=== PATIENT | female | born 1940 | race Caucasian/White ===

== ENCOUNTER 2023-03-24 10:09 | Observation (INO) | payer MEDICARE, SELFPAY ==
[2023-03-24] VITALS (36 sets, daily range): BP systolic 155–169; BP diastolic 78–95; PULSE 66–98; RESP 12–27; TEMP 36.8–37.3; O2SAT 88–100; BMI 32.9; BMI 36.1
--- NOTE | 2023-03-24 10:31 | XR_ITS ---
The [address] [address] Patient Name: CHIARA GALLEGOS MRN: [id number] date: 1940 Sex: F Assigned Patient Location: ER Current Patient Location: ER Accession/Order Number: [id number] Exam Date: 03/24/2023 10:40 Report Date: 03/24/2023 12:34 At the request of: BAHMAN ORR Procedure: XR chest 1V EXAM: XR chest 1V 03/24/2023 COMPARISON STUDY: PA and lateral chest 04/10/2018 FINDINGS: Upright lordotic AP chest type image was obtained. The image overall is underpenetrated particularly in the retrocardiac region. HISTORY: sob XR/XR chest 1V IMPRESSION: 1. The cardiomediastinal contours are stable. Heart size is top normal. Descending thoracic aorta appears ectatic and tortuous. 2. The retrocardiac regions cannot be accurately evaluated due to underpenetration. No dense consolidation, effusion, edema, failure or pneumothorax otherwise suspected. 3. Lower thoracic levoscoliosis. No acute osseous abnormality. Significant arthritic changes involving the glenohumeral articulations bilaterally again noted. Electronically authenticated by: MIRIAM RAMIREZ Date: 03/24/2023 12:34
--- NOTE | 2023-03-24 10:31 | ECG_ITS ---
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
[2023-03-24 10:58] LABS: Basophils Percent Auto 0.2 % (0.2-2.0); Eosinophils Absolute Auto 0.3 10^3/uL (0.0-0.7); Eosinophils Percent Auto 2.5 % (0.9-7.0); Hematocrit 37.5 % (36.0-48.0); Hemoglobin 12.1 g/dL (12.0-16.0); Immature Granulocytes Abs Auto 0.03 10^3/uL (0.00-0.03); Immature Granulocytes Pct Auto 0.3 % (0.0-0.5); Lymphocytes Absolute Auto 2.5 10^3/uL (1.2-3.8); Lymphocytes Percent Auto 24.5 % (20.5-60.0); Mean Corpuscular HGB Conc 32.3 g/dL (29.9-35.2); Mean Corpuscular Hemoglobin 29.4 pg (26.7-34.0); Monocytes Absolute Auto 0.9 10^3/uL (0.3-0.8); Monocytes Percent Auto 8.8 % (1.7-12.0); Neutrophils Absolute Auto 6.6 10^3/uL (1.4-6.5); Neutrophils Percent Auto 63.7 % (43.0-75.0); Platelet Count 321 10^3/uL (150-450); Red Blood Count 4.12 10^6/uL (4.20-5.40); Red Cell Distribution Width 13.7 % (11.0-15.0); White Blood Count 10.4 10^3/uL (4.0-11.0)
[2023-03-24 11:09] LABS: INR 0.98; Prothrombin Time 10.4 sec (9.0-11.6)
[2023-03-24 11:11] LABS: SARS-CoV-2 Ag NEGATIVE (NEGATIVE)
[2023-03-24 11:13] LABS: Alanine Aminotransferase 13 U/L (14-59); Albumin Globulin Ratio 0.9; Albumin Level 3.2 g/dL (3.4-5.0); Alkaline Phosphatase 120 U/L (46-116); Anion Gap 10.5; Aspartate Amino Transferase 12 U/L (15-37); BUN Creatinine Ratio 14.7; Calcium 8.8 mg/dL (8.5-10.1); Carbon Dioxide 28.5 mmol/L (21.0-32.0); Chloride 103 mmol/L (98-107); Estimated GFR (African America >60 (>=60); Estimated GFR (Non-African Ame >60 (>=60); Globulin 3.7 g/dL; Glucose 113 mg/dL (74-106); Lactate/Lactic Acid 1.1 mmol/L (0.4-2.0); Sodium 138 mmol/L (136-145); Total Protein 6.9 g/dL (6.4-8.2); Troponin I High Sensitivity 9.5 pg/mL (4.0-51.3)
--- NOTE | 2023-03-24 11:39 | CT_ITS ---
The [address] [address] Patient Name: CHIARA GALLEGOS MRN: [id number] date: 1940 Sex: F Assigned Patient Location: ER Current Patient Location: ER Accession/Order Number: [id number] Exam Date: 03/24/2023 11:50 Report Date: 03/24/2023 13:06 At the request of: BAHMAN ORR Procedure: CT chest w con EXAM: CT chest w con HISTORY: sob COMPARISON: None. TECHNIQUE: Dose reduction techniques were achieved by using automated exposure control and/or adjustment of mA and/or kV according to patient size and/or use of iterative reconstruction technique.CT of the chest with contrast. FINDINGS: Inferior visualized portion of the thyroid gland is normal. No supraclavicular adenopathy. No axillary adenopathy. No central pulmonary embolism. No acute aortic abnormality. Heart size is normal. No pericardial effusion. No acute abnormality of the visualized portions of the upper abdomen. Gastric surgery. Patchy consolidation at the left lung base, consistent with inflammation/infection. No acute osseous abnormality. Mild to moderate degeneration of the thoracic spine disc spaces. CT/CT chest w con IMPRESSION: 1. No pulmonary embolism evaluated to the segmental pulmonary arteries. 2. No acute aortic abnormality. 3. Patchy consolidation at the left lung base, consistent with inflammation/infection. 4. No acute abnormality of the visualized portions of the upper abdomen. Electronically authenticated by: ALMAS WISE Date: 03/24/2023 13:06
[2023-03-24] MEDS: IPRATROPIUM/ALBUTEROL SULFATE 3 ML AMPUL.NEB IH ×2 (12:13→21:44)
[2023-03-24 12:16] LABS: SARS-CoV-2 NAA NOT DETECTED (NOT DETECTE)
--- NOTE | 2023-03-24 13:31 | ED_ITS ---
HPI - General Adult General Chief complaint: Upper Respiratory Infection Stated complaint: FLU LIKE SYMPTOMS Time Seen by Provider: 03/24/23 10:30 Source: patient Mode of arrival: Wheelchair Limitations: no limitations History of Present Illness HPI narrative: The patient presented to us with shortness of breath that been going on at least for 10 days although she got worse over the last few days with a cough that is not productive, decreased p.o. intake and lethargic at home No nausea or vomiting but the patient have no appetite to eat and she has been weak and tired Related Data Home Medications Medication Instructions Recorded Confirmed aripiprazole 2 mg tablet 2 mg PO QDAY 03/24/23 03/24/23 atorvastatin 20 mg tablet 20 mg PO QDAY 03/24/23 03/24/23 cyanocobalamin (vitamin B-12) 1,000 mcg PO DAILY 03/24/23 03/24/23 1,000 mcg tablet (Vitamin B-12) gabapentin 300 mg capsule 300 mg PO Q12H 03/24/23 03/24/23 memantine 5 mg tablet 5 mg PO QDAY 03/24/23 03/24/23 oxybutynin chloride 5 mg tablet 5 mg PO Q12H 03/24/23 03/24/23 venlafaxine 150 mg 150 mg PO QDAY 03/24/23 03/24/23 capsule,extended release 24 hr venlafaxine 75 mg capsule,extended 75 mg PO QDAY 03/24/23 03/24/23 release 24 hr Allergies Allergy/AdvReac Type Severity Reaction Status Date / Time No Known Drug Allergies Allergy Verified 03/24/23 10:20 Review of Systems ROS Status of ROS 10 or more systems reviewed and unremarkable except as noted in history and below PFSH PFSH Social History Smoking status: Former smoker Exam Narrative Exam Narrative: Nurses notes and vital signs reviewed and patient is not hypoxic. General: Well-appearing and in no apparent distress. Skin: Warm, dry, no pallor noted. No rash. Head: Normocephalic, atraumatic. Neck: Supple, non-tender. Eye: Pupils are equal, round and EOMI. No scleral icterus. Ears, Nose, Mouth, and Throat: TM are clear, no nasal mucosal hypertrophy. Oral mucosa is moist, no posterior oropharynx erythema, uvula is mid-line Cardiovascular: Regular Rate and Rhythm without murmur, gallop or rub. Respiratory: No accessory muscle use or respiratory distress. Lungs decreased air entry in the bases with rhonchi bilaterally Chest Wall: no tenderness Back: No midline thoracic or lumbar vertebral tenderness. No CVA tenderness Musculoskeletal: normal ROM, no calf or popliteal tenderness, no lower extremity edema/swelling GI: Abdomen is soft, non-distended. Normal bowel sounds. No masses appreciated. No tenderness to palpation. No rebound, guarding, or rigidity noted. Neurological: A&O x4. No cranial nerve dysfunction observed. No truncal ataxia. Moves all extremities. Sensation intact. Psychiatric: Cooperative and interactive. Normal mood and affect. Constitutional Vital Signs, click to edit/add: Last Vital Signs Temp 98.2 F 03/24/23 10:15 Pulse 75 03/24/23 12:30 Resp 23 03/24/23 12:45 BP 169/95 H 03/24/23 10:15 Pulse Ox 94 L 03/24/23 12:45 O2 Del Method Room Air 03/24/23 12:14 Course Vital Signs Vital signs: Vital Signs Temperature 98.2 F 03/24/23 10:15 Pulse Rate 87 03/24/23 10:15 Respiratory Rate 22 03/24/23 10:15 Blood Pressure 169/95 H 03/24/23 10:15 Pulse Oximetry 95 03/24/23 10:15 Oxygen Delivery Method Room Air 03/24/23 10:15 Temperature 98.2 F 03/24/23 10:15 Pulse Rate 75 03/24/23 12:30 Respiratory Rate 23 03/24/23 12:45 Blood Pressure 169/95 H 03/24/23 10:15 Pulse Oximetry 94 L 03/24/23 12:45 Oxygen Delivery Method Room Air 03/24/23 12:14 Medical Decision Making [facility] Narrative Medical decision making narrative: The patient EKG showing sinus rhythm with a heart rate of [address] elevation or depression The patient chest x-ray did not show any acute pathology that can explain why the patient is hypoxemic as well as short of breath and weak and tired Her CBC and chemistry showed no acute significant pathology but the patient does look sick and tired and her CAT scan confirmed the infiltrate and possible pneumonia Blood culture obtained and the patient will be started antibiotic azithromycin and ceftriaxone The patient case was discussed with Dr. Alcazar and he agreed on admission Lab Data Labs: Lab Results 03/24/23 03/24/23 Range/Units 10:30 10:39 WBC 10.4 (4.0-11.0) 10^3/uL RBC 4.12 L (4.20-5.40) 10^6/uL Hgb 12.1 (12.0-16.0) g/dL Hct 37.5 (36.0-48.0) % MCV 91.0 (81.0-99.0) fL MCH 29.4 (26.7-34.0) pg MCHC 32.3 (29.9-35.2) g/dL RDW 13.7 (11.0-15.0) % Plt Count 321 (150-450) 10^3/uL MPV 9.0 L (9.5-13.5) fL Neut % (Auto) 63.7 (43.0-75.0) % Lymph % (Auto) 24.5 (20.5-60.0) % [place] % (Auto) 8.8 (1.7-12.0) % Eos % (Auto) 2.5 (0.9-7.0) % Baso % (Auto) 0.2 (0.2-2.0) % Neut # (Auto) 6.6 H (1.4-6.5) 10^3/uL Lymph # (Auto) 2.5 (1.2-3.8) 10^3/uL [place] # (Auto) 0.9 H (0.3-0.8) 10^3/uL Eos # (Auto) 0.3 (0.0-0.7) 10^3/uL Baso # (Auto) 0.0 (0.0-0.1) 10^3/uL Abs Immat Gran (auto) 0.03 (0.00-0.03) 10^3/uL Imm/Tot Granulo (auto) 0.3 (0.0-0.5) % PT 10.4 (9.0-11.6) sec INR 0.98 Sodium 138 (136-145) mmol/L Potassium 4.0 (3.5-5.1) mmol/L Chloride 103 (98-107) mmol/L Carbon Dioxide 28.5 (21.0-32.0) mmol/L Anion Gap 10.5 BUN 10.0 (7.0-18.0) mg/dL Creatinine 0.68 (0.55-1.02) mg/dL Est GFR ( Amer) >60 (>=60) Est GFR (Non-Af Amer) >60 (>=60) BUN/Creatinine Ratio 14.7 Glucose 113 H (74-106) mg/dL Lactate 1.1 (0.4-2.0) mmol/L Calcium 8.8 (8.5-10.1) mg/dL Total Bilirubin 1.0 (0.2-1.0) mg/dL AST 12 L (15-37) U/L ALT 13 L (14-59) U/L Alkaline Phosphatase 120 H (46-116) U/L Troponin I High Sens 9.5 (4.0-51.3) pg/mL NT-Pro-B Natriuret Pep 369.0 (<=1800.0) pg/mL Total Protein 6.9 (6.4-8.2) g/dL Albumin 3.2 L (3.4-5.0) g/dL Globulin 3.7 g/dL Albumin/Globulin Ratio 0.9 SARS-CoV-2 (PCR) Negative (NEGATIVE) SARS-CoV-2 RNA (SHO) Not detected (NOT DETECTE) Discharge Plan Discharge Chief Complaint: Upper Respiratory Infection Clinical Impression: Community acquired pneumonia, Generalized muscle weakness Patient Disposition: Admitted As Inpatient Time of Disposition Decision: 13:35 Condition: Good
[2023-03-24] MEDS: CEFTRIAXONE 1,000 MG in 0.9 % SODIUM CHLORIDE 50 ML 100 MG IV (13:34)
[2023-03-24] MEDS: AZITHROMYCIN 500 MG in 0.9 % SODIUM CHLORIDE 250 ML 250 MG IV (14:06)
[2023-03-24] MEDS: LACTATED RINGER'S SOLUTION 1,000 ML 100 ML IV (16:27)
[2023-03-24] MEDS: ENOXAPARIN SODIUM 40 MG/0.4 ML SYRINGE SUBQ (16:35)
[2023-03-24] MEDS: OXYBUTYNIN chloride 5 MG TABLET PO (21:08)
[2023-03-24] MEDS: GABAPENTIN 300 MG CAPSULE PO (21:08)
[2023-03-24] MEDS: ACETAMINOPHEN 325 MG TABLET 650 MG PO (21:13)
[2023-03-25] VITALS (12 sets, daily range): BP systolic 124–146; BP diastolic 78–84; PULSE 62–82; RESP 16–18; TEMP 36.7–36.8; O2SAT 91–94
[2023-03-25] MEDS: LACTATED RINGER'S SOLUTION 1,000 ML 100 ML IV (02:15)
[2023-03-25 04:55] LABS: Basophils Percent Auto 0.3 % (0.2-2.0); Eosinophils Absolute Auto 0.2 10^3/uL (0.0-0.7); Eosinophils Percent Auto 2.3 % (0.9-7.0); Hematocrit 40.7 % (36.0-48.0); Hemoglobin 12.8 g/dL (12.0-16.0); Immature Granulocytes Abs Auto 0.03 10^3/uL (0.00-0.03); Immature Granulocytes Pct Auto 0.3 % (0.0-0.5); Lymphocytes Absolute Auto 2.9 10^3/uL (1.2-3.8); Mean Corpuscular HGB Conc 31.4 g/dL (29.9-35.2); Mean Corpuscular Hemoglobin 29.8 pg (26.7-34.0); Mean Corpuscular Volume 94.9 fL (81.0-99.0); Mean Platelet Volume 9.4 fL (9.5-13.5); Monocytes Percent Auto 9.5 % (1.7-12.0); Neutrophils Absolute Auto 5.9 10^3/uL (1.4-6.5); Neutrophils Percent Auto 58.6 % (43.0-75.0); Platelet Count 281 10^3/uL (150-450); Red Blood Count 4.29 10^6/uL (4.20-5.40); White Blood Count 10.1 10^3/uL (4.0-11.0)
[2023-03-25 05:18] LABS: Alanine Aminotransferase 13 U/L (14-59); Albumin Globulin Ratio 0.8; Alkaline Phosphatase 114 U/L (46-116); Aspartate Amino Transferase 16 U/L (15-37); BUN Creatinine Ratio 13.2; Bilirubin Total 1.2 mg/dL (0.2-1.0); Calcium 9.3 mg/dL (8.5-10.1); Carbon Dioxide 27.7 mmol/L (21.0-32.0); Chloride 102 mmol/L (98-107); Estimated GFR (African America >60 (>=60); Estimated GFR (Non-African Ame >60 (>=60); Glucose 101 mg/dL (74-106); Potassium 3.7 mmol/L (3.5-5.1); Sodium 139 mmol/L (136-145)
[2023-03-25] MEDS: GABAPENTIN 300 MG CAPSULE PO ×2 (05:31→13:56)
[2023-03-25] MEDS: IPRATROPIUM/ALBUTEROL SULFATE 3 ML AMPUL.NEB IH (08:57)
[2023-03-25] MEDS: AZITHROMYCIN 250 MG TABLET 500 MG PO (10:08)
[2023-03-25] MEDS: ATORVASTATIN CALCIUM 20 MG TABLET PO (10:08)
[2023-03-25] MEDS: ARIPIPRAZOLE 2 MG TABLET PO (10:08)
[2023-03-25] MEDS: FOLIC ACID/VIT B6/VIT B12 TABLET 1 TAB PO (10:09)
[2023-03-25] MEDS: ENOXAPARIN SODIUM 40 MG/0.4 ML SYRINGE SUBQ (10:09)
[2023-03-25] MEDS: MEMANTINE HCL 7 MG CAP XR PO (10:10)
[2023-03-25] MEDS: OXYBUTYNIN chloride 5 MG TABLET PO (10:10)
[2023-03-25] MEDS: VENLAFAXINE HCL ER 75 MG CAPSULE PO (10:10)
[2023-03-25] MEDS: VENLAFAXINE HCL ER 150 MG CAPSULE PO (10:10)
--- NOTE | 2023-03-25 11:55 | P.HP_ITS ---
Seen and examined. Case d/w RADHA Winchester. Agree with her clinical findings, documentation. Patient presented with cough, SOB x 2 weeks. Admitted overnight for Pneumonia. Exam: Sitting on chair, NAD. Exp wheezing, normal RR. no resp distress noted Assessment and Plan Bacterial PNA COPD exacerbation Dementia Stable for dicharge on PO abx. Patient educated on signs and symptoms that should prompt her to seek care. H&P: HPI History of Present Illness Chief complaint: Cough, SOB Narrative: Date/time of exam: 03/25/23 1015 This is an 82-year-old female patient with a past medical history as outlined below including dementia, depression, remote history of tobacco use/COPD; who presented to the ED yesterday complaining of approximate 10-day course of URI symptoms. She notes a moist cough and general weakness. Denies fever or chills, nausea or vomiting. Work-up in the ED was mostly unremarkable without leukocytosis or other significant lab abnormality. Chest x-ray was nondiagnostic with no acute disease noted. CT of the chest was obtained and the patient was found to have patchy consolidation of the left lung base consistent with inflammation/infection. No PE or acute aortic abnormality was noted. She was admitted to observation to the hospitalist service yesterday evening. At the time of my exam the patient is sitting up in a bedside chair. She is stable on room air without any shortness of breath or increased work of breathing noted. She is afebrile and without hypoxia or leukocytosis. She does have an infrequent loose cough but is unable to produce sputum. On exam she has scattered rhonchi throughout and some wheezing noted, but again has normal work of breathing and no hypoxia. As the patient appears to be improving she is being discharged back home in stable condition. She has been prescribed azithromycin and Augmentin for community-acquired pneumonia and COPD exacerbation, albuterol HFA, short burst of prednisone, and Mucinex. She should follow-up with her PCP in the next 5 to 7 days. She is stable for discharge home at this time. Review of Systems ROS Status of ROS 10 or more systems reviewed and unremarkable except as noted in history and below [facility] Medical History (Updated 03/25/23 @ 12:32 by Annabella Kim NP) Dementia ?F03.90 - Unspecified dementia, unspecified severity, without behavioral disturbance, psychotic disturbance, mood disturbance, and anxiety (ICD-10) Depression ?F32.A - Depression, unspecified (ICD-10) High cholesterol ?E78.00 - Pure hypercholesterolemia, unspecified (ICD-10) Incontinence ?R32 - Unspecified urinary incontinence (ICD-10) Tremors of nervous system ?R25.1 - Tremor, unspecified (ICD-10) Surgical History (Updated 03/24/23 @ 15:14 by Marlena Quiroz) FH: total abdominal hysterectomy and bilateral salpingo-oophorectomy ?Z84.2 - Family history of other diseases of the genitourinary system (ICD- 10) Hx laparoscopic cholecystectomy ?Z90.49 - Acquired absence of other specified parts of digestive tract (ICD- 10) Left knee injury ?S89.92XA - Unspecified injury of left lower leg, initial encounter (ICD-10) Family History (Updated 03/24/23 @ 15:15 by Marlena Quiroz) Father Family history of CHF (congestive heart failure) Family history of COPD (chronic obstructive pulmonary disease) Grandmother Family history of cancer Social History (Updated 03/24/23 @ 15:17 by Marlena Quiroz) Within the past year, how often did you have a drink containing alcohol: monthly or less Smoking status: Former smoker Non-prescribed substance use: denies use Previous occupational history: retired Highest level of school completed/degree received: high school graduate Are you now , , , , never or living with a partner: Little interest or pleasure in doing things: not at all Feeling down, depressed, or hopeless: not at all Feel stressed/tense/nervous/anxious/difficulty sleeping: not at all Do you think of yourself as: straight/heterosexual Gender Identity: female Meds Home Medications and Allergies Home Medications Medication Instructions Recorded Confirmed Type aripiprazole 2 mg tablet 2 mg PO QDAY 03/24/23 03/24/23 History atorvastatin 20 mg tablet 20 mg PO QDAY 03/24/23 03/24/23 History cyanocobalamin (vitamin B-12) 1,000 mcg PO DAILY 03/24/23 03/24/23 History 1,000 mcg tablet (Vitamin B-12) gabapentin 300 mg capsule 300 mg PO Q8H 03/24/23 03/24/23 History memantine 5 mg tablet 5 mg PO QDAY 03/24/23 03/24/23 History oxybutynin chloride 5 mg tablet 5 mg PO Q12H 03/24/23 03/24/23 History venlafaxine 150 mg 150 mg PO QDAY 03/24/23 03/24/23 History capsule,extended release 24 hr venlafaxine 75 mg capsule,extended 75 mg PO QDAY 03/24/23 03/24/23 History release 24 hr albuterol sulfate 90 mcg/actuation 2 inh inhalation Q4H PRN shortness 03/25/23 Rx aerosol inhaler of breath or wheezing #6.7 grams amoxicillin 875 mg-potassium 1 tab PO BID 5 days #10 tabs 03/25/23 Rx clavulanate 125 mg tablet azithromycin 250 mg tablet See Rx Instructions PO .COMPLEX #6 03/25/23 Rx (Zithromax Z-Sanya) tabs guaifenesin 600 mg tablet, 600 mg PO BID 5 days #10 tabs 03/25/23 Rx extended release 12 hr prednisone 20 mg tablet 20 mg PO DAILY 5 days #5 tabs 03/25/23 Rx Allergies Allergy/AdvReac Type Severity Reaction Status Date / Time No Known Drug Allergies Allergy Verified 03/24/23 10:20 Exam Constitutional Vital Signs, click to edit/add: Last Vital Signs Temp 98.2 F 03/25/23 08:01 Pulse 82 03/25/23 10:00 Resp 16 03/25/23 08:58 BP 144/83 H 03/25/23 08:01 Pulse Ox 94 L 03/25/23 08:58 O2 Del Method Room Air 03/25/23 08:58 Common normals: no apparent distress, oriented x3, alert and well nourished General appearance: cooperative Orientation/consciousness: Yes awake [facility] Common normals: normocephalic, head/scalp atraumatic, hearing grossly normal bilaterally, external nose normal and moist oral mucous membranes Face and sinus: normal facial exam Nose: external nose normal Eye Common normals: PERRL, EOMs intact bilaterally, conjunctivae normal and no scleral icterus Alignment: alignment normal Eyelid: eyelids normal Conjunctiva: conjunctiva(e) normal Pupil: PERRL Neck & C-Spine Common normals: full ROM, supple and no JVD Chest Common normals: inspection of chest normal Chest: symmetrical chest wall rise Respiratory Common normals: normal respiratory effort, no retractions and no use of accessory muscles Effort & inspection: able to speak in complete sentences Auscultation: rhonchi (exp ronchi scattered throughout) and wheezes (Faint, I & E wheezing) Cardio Common normals: no JVD, regular rate, regular rhythm, S1 normal heart sound, S2 normal heart sound, no gallops, no clicks, no murmurs, no rub and peripheral pulses 2+ throughout Rate: regular rate Rhythm: regular rhythm Heart sounds: S1 normal and S2 normal Peripheral pulses: pulses 2+ throughout GI Common normals: Normal to inspection, nondistended, normoactive bowel sounds present, soft to palpation, non-tender, no hepatosplenomegaly, no masses and no bruits Bladder/kidney exam: bladder normal to palpation Back & Pelvis Common normals: thoracic and lumbar spine normal to inspection Extremity Common normals: normal capillary refill and no pedal edema General: normal exam except as noted; no clubbing and no cyanosis Neuro [place] Coma Scale: GCS not evaluated Common normals: oriented x3, CN's II-XII intact bilaterally, moves all extremities, no focal motor deficits and no sensory deficits noted Sensorium/orientation: awake and alert Speech: speech normal Motor exam: strength 5/5 throughout Psych Common normals: mental status grossly normal, thought process normal, affect normal and activity/motor behavior normal Thought process: normal thought process Memory/cognition: memory grossly impaired Impaired memory type(s): short term Results Labs Labs: Short CBC 03/25/23 Range/Units 04:31 WBC 10.1 (4.0-11.0) 10^3/uL Hgb 12.8 (12.0-16.0) g/dL Hct 40.7 (36.0-48.0) % Plt Count 281 (150-450) 10^3/uL BMP 03/25/23 04:31 Sodium 139 Potassium 3.7 Chloride 102 Carbon Dioxide 27.7 BUN 9.0 Creatinine 0.68 Glucose 101 Calcium 9.3 Liver Function 03/25/23 Range/Units 04:31 Total Bilirubin 1.2 H (0.2-1.0) mg/dL AST 16 (15-37) U/L ALT 13 L (14-59) U/L Alkaline Phosphatase 114 (46-116) U/L Albumin 3.0 L (3.4-5.0) g/dL Pulse Oximetry Attestation: I have reviewed the pertinent pulse oximetry results. Imaging Chest x-ray: Attestation: I have reviewed the pertinent imaging results. Radiologist's impression: IMPRESSION: 1. The cardiomediastinal contours are stable. Heart size is top normal. Descending thoracic aorta appears ectatic and tortuous. 2. The retrocardiac regions cannot be accurately evaluated due to underpenetration. No dense consolidation, effusion, edema, failure or pneumothorax otherwise suspected. 3. Lower thoracic levoscoliosis. No acute osseous abnormality. Significant arthritic changes involving the glenohumeral articulations bilaterally again noted. CT scan - chest: Attestation: I have reviewed the pertinent imaging results. Radiologist's impression: IMPRESSION: 1. No pulmonary embolism evaluated to the segmental pulmonary arteries. 2. No acute aortic abnormality. 3. Patchy consolidation at the left lung base, consistent with inflammation/infection. 4. No acute abnormality of the visualized portions of the upper abdomen. Assessment and Plan Assessment and Plan (1) Community acquired pneumonia: Assessment and Plan: ACUTE * Adm observation * IVPB rocephin and azithromycin initiated in the ED * PRN duonebs q4h * Pt remains afebrile, without leukocytosis or hypoxia * Nursing to walk pt in the hallway and monitor O2 sats - If remain above 90% with activity the pt will be discharged home * Augmentin * Azithromycin * Prednisone * Albuterol HFA * Mucinex (2) COPD exacerbation: Assessment and Plan: ACUTE * See CAP above (3) Generalized muscle weakness: Assessment and Plan: ACUTE * Mild, generalized * 2/2 acute illness * PT OT eval and treat (4) Dementia: Assessment and Plan: CHRONIC * Continue home namenda, aripiprazole (5) Depression: Assessment and Plan: CHRONIC * Continue home venlafaxine (6) High cholesterol: Assessment and Plan: CHRONIC * Continue home statin (7) Incontinence: Assessment and Plan: CHRONIC * Continue home ditropan
--- NOTE | 2023-03-25 12:15 | CM.NOTE ---
Rounds made with Dr. Alcazar. Plan for discharge today. Await P.T. assessment for potential home going needs.
[2023-03-25] MEDS: GUAIFENESIN 600 MG TAB.ER.12H PO (12:31)
--- NOTE | 2023-03-25 15:43 | CM.NOTE ---
Medicare Outpatient Observation Notice discussed with pt, pt verbalizes understanding and signs paper. Original given to pt and copy placed on pt's chart.
== END 2023-03-25 14:57 | disposition home or self-care (01) ==
LOC: ER 13:35 → MS 03-25 07:47
PROVIDERS: Admitting Provider Internal Medicine; Emergency Provider Emergency Medicine; PCP Internal Medicine; Visit Provider Nurse Practitioner
DX: J18.9 Pneumonia, unspecified organism (principal); F03.90 Unspecified dementia, unspecified severity, without behavioral disturbance, psychotic disturbance, mood disturbance, and anxiety; J44.1 Chronic obstructive pulmonary disease with (acute) exacerbation; J44.0 Chronic obstructive pulmonary disease with (acute) lower respiratory infection; M62.81 Muscle weakness (generalized); F32.A Depression, unspecified; R32 Unspecified urinary incontinence; R25.1 Tremor, unspecified; Z20.822 Contact with and (suspected) exposure to COVID-19; Z87.891 Personal history of nicotine dependence; Z79.899 Other long term (current) drug therapy; E78.00 Pure hypercholesterolemia, unspecified; Z90.49 Acquired absence of other specified parts of digestive tract
CPT/HCPCS: 36415; 71045; 71260; 80053; 83605; 83880; 84484; 85025; 85610; 87040; 87635; 87811; 93005; 94640; 94761; 96365; 96368; 96372; 97161; 97165; 97530; 97535; 99285; G0378; J0456; Q9967

== ENCOUNTER 2024-03-06 05:49 | Observation (INO) | payer MEDICARE, SELFPAY ==
[2024-03-06] VITALS (36 sets, daily range): BP systolic 91–165; BP diastolic 43–95; PULSE 52–115; TEMP 36.2–36.8; O2SAT 91–100; BMI 32.7; BMI 39.6
--- NOTE | 2024-03-06 05:54 | XR_ITS ---
The [address] [address] Patient Name: CHIARA GALLEGOS MRN: [id number] date: 1940 Sex: F Assigned Patient Location: ER Current Patient Location: ER Accession/Order Number: [id number] Exam Date: 03/06/2024 06:30 Report Date: 03/06/2024 07:00 At the request of: JASWANT GALARZA Procedure: XR chest 1V EXAMINATION: XR chest 1V HISTORY: CP COMPARISON: XR chest 03/24/2023 FINDINGS: LUNGS: No significant pulmonary parenchymal abnormalities. VASCULATURE: No increased pulmonary vasculature. PLEURA: No pneumothorax, effusion, or pleural thickening. CARDIAC: No cardiomegaly or cardiac silhouette abnormality. MEDIASTINUM: No visible mass or adenopathy. BONES: No fracture or visible bone lesion. OTHER: Negative. XR/XR chest 1V IMPRESSION: 1. Evaluation is limited by patient body habitus and AP portable technique. 2. No convincing acute cardiopulmonary process. Electronically authenticated by: NHI MULLEN Date: 03/06/2024 07:00
--- NOTE | 2024-03-06 05:54 | ECG_ITS ---
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
--- OUTSIDE RECORDS SUMMARY | 2024-03-06 06:08 | XMS_ITS | CCD ---
Author Organization [facility] Care Team Providers Care Occupational Therapy Teacher Name Role Phone CONNOR WOLFF Attending Unavailable CONNOR WOLFF Admitting Unavailable ADY MAYERS Referring Unavailable CJ RODRIGUEZ Primary Care Unavailable Cj Rodriguez Primary Care Provider [phone] Talya Bergeron Admit Provider Talya Bergeron Attending Provider Ladonna Brito Attending Provider [phone] Camilo Yo Attending Provider [phone] CJ RODRIGUEZ Primary Care Unavailable MICHAEL, DR CORONA Attending Unavailable MICHAEL, DR CORONA Admitting Unavailable MICHAEL, DR CORONA Admitting Unavailable DR CJ RODRIGUEZ Primary Care Unavailable MICHAEL, DR CORONA Attending Unavailable MICHAEL, DR CORONA Primary Care Unavailable MICHAEL, DR CORONA Attending Unavailable MICHAEL, DR CORONA Admitting Unavailable DO Cj Rodriguez Primary Care Provider [phone] DO Cj Rodriguez Attending Provider Cj Rodriguez Attending Unavailable Cj Rodriguez Primary Care Unavailable Cj Rodriguez Admitting Unavailable Diana Gil Unavailable Cj Rodriguez DO Primary Care Provider Cj Rodriguez DO Unavailable [phone] Rivas Harper MD Unavailable [phone] BARON LYNNE Referring Unavailable CJ RODRIGUEZ Attending Unavailable CJ RODRIGUEZ Attending Unavailable CJ RODRIGUEZ Referring Unavailable MAEGAN KESSLER Attending Unavailable CJ RODRIGUEZ Primary Care Physician Unavail able Mayte Stringer Attending Unavailable Unavailable Unavailable Unavailable Allergies Allergy Classification Reported Allergen(s) Allergy Type Date of Onset Reaction(s) Facility (5 sources) HYDROcodone Drug Allergy 11-07-20 13 Unknown Reaction [facility] Repository (8 sources) Penicillins; Translations: [penicillins] Drug allergy (disorder) 02-27-20 13 Unknown Reaction, swelling at injection site [facility] Repository (3 sources) traZODone; Translations: [traZODone] Drug Allergy 03-09-20 20 [facility] Repository (3 sources) Acetaminophen; Translations: [acetaminophen] Drug Allergy 05-03-19 21 Unknown Reaction [facility] (1 source) HYDROcodone Drug Allergy 05-25-19 [facility] Repository (1 source) Penicillins Drug allergy (disorder) 05-25-19 [facility] Repository (1 source) Substance with penicillin structure and antibacterial mechanism of action (substance) Drug allergy Unknown [facility] Other (1 source) donepezil Drug Allergy 10-17-19 23 [facility] (1 source) HYDROcodone Drug Allergy 10-17-19 23 [facility] (1 source) Lisinopril Allergy to substance 10-17-19 23 [facility] (1 source) oxyCODONE Drug Allergy 07-21-19 08 Rash [facility] (1 source) Penicillins Drug Allergy 10-17-19 23 [facility] (1 source) Acetaminophen / HYDROcodone Drug Allergy 08-25-19 24 Unknown Reaction [facility] Medications Current Medications Medication Drug Class(es) Dates Sig (Normalized) Sig (Original) acetaminophen 500 mg / diphenhydrAMINE hydrochloride 25 mg oral tablet (1 source) Histamine-1 Receptor Antagonist take 25-500 mg by mouth once as needed diphenhydrAMINE-a cetaminophen (Tylenol PM Extra Strength) 25-500 MG per tablet Take 1 tablet by mouth as needed at bedtime. 0 Active acetaminophen 325 mg / HYDROcodone bitartrate 5 mg oral tablet (1 source) Opioid Agonist Start: 03-10-2015 [place] 325 mg-5 mg oral tablet 1 tab(s), Oral, q4hr for pain, 40 tab(s), Refill(s) 1 Start Date: 03/10/15 Status: Ordered [id number] 200 actuat albuterol 0.09 mg/actuat metered dose inhaler (1 source) beta2-Adrenergic Agonist Start: 03-25-2023 take 2 puff(s) by inhalation every four hours albuterol HFA 90 mcg/act inhaler Inhale 2 puffs every 4 (four) hours if needed 0 03/25/2023 Active amoxicillin 875 mg / clavulanate 125 mg oral tablet (1 source) Penicillin-class Antibacterial Start: 03-25-2023 take 1 tablet by mouth in the morning amoxicillin-clavu lanate (Augmentin) 875-125 MG tablet Take 875 mg by mouth in the morning and 875 mg before bedtime. 0 03/25/2023 Active ARIPiprazole 2 mg oral tablet (2 sources) Atypical Antipsychotic Start: 08-25-2023 take 2 mg by mouth once daily Aripiprazole Active 2 MG PO Daily August 25, 2023 12:00am take 1 tablet by mouth at bedtim e Abilify 2 MG tablet Take 2 mg by mouth at bedtime 0 Active Ascorbic Acid (4 sources) Vitamin C Start: 04-13-2020 take 1 tablet by mouth once daily Vitamin C Active 1 TAB PO Daily April 13, 2020 12:14pm Start: 04-13-2020 End: 08-25-2023 take 1 tablet by mouth once daily Vitamin C Discontinued 1 TAB PO Daily April 13, 2020 1:00am August 25, 2023 11:46am Start: 04-13-2020 take 1 tablet by chuckie th once daily Vitamin C Active 1 TAB PO Daily April 13, 2020 1:00am Start: 02-17-2015 take 500 mg by mouth once sebastian y Vitamin C 500 mg, Oral, Daily, Refills(s) 0, Prophylaxis Start Date: 02/17/15 Status: Ordered atorvastatin 20 mg oral tablet (3 sources) HMG-CoA Reductase Inhibitor Start: 08-25-2023 take 20 mg by mouth once daily Atorvastatin Active 20 MG PO Daily August 25, 2023 12:00am Start: 01-03-2023 take 1 tablet by chuckie th once daily atorvastatin (Lipitor) 20 MG tablet Indications: Mixed hyperlipidemia (CMS/HCC) TAKE 1 TABLET BY MOUTH ONCE DAILY AT NIGHT 90 tablet 3 01/03/2023 Active take 1 tablet by chuckie th every twenty-four hours Atorvastatin Calcium 20 MG 1 tablet Orally Once a day Active azithromycin 250 mg oral tablet (1 source) Macrolide Antimicrobial Start: 10-09-2022 Azithromycin 250 MG 2 tablet on the first day, then 1 tablet daily for 4 days Orally Once a day for 5 day(s) Sep, Active B12 Folate 800-800 MCG (1 source) B12 Folate 800-8 00 MCG as directed Orally Active benzonatate 100 mg oral capsule (1 source) Non-narcotic Antitussive Start: 10-09-2022 take 1 capsule by mouth three times daily as needed Tessalon Perles 100 MG 1 capsule as needed Orally Three times a day for 7 days Sep, Active cholecalciferol 0.05 mg oral capsule (1 source) Vitamin D take 1 capsule by mouth in the morning cholecalciferol (Vitamin D-3) 50 MCG (1999) capsule Take 2,000 Units by mouth in the morning. 0 Active Citracal Maximum 315-250 MG-UNIT (1 source) take 1 tablet by mouth twice daily Citracal Maximum 315-250 MG-UNIT 1 tablet Orally Twice a day Active docusate sodium 100 mg oral capsule (1 source) Start: 03-10-2015 take 1 capsule by mouth twice daily as needed for constipation Colace 100 mg Cap 100 mg = 1 cap(s), Oral, BID, PRN Constipation, Refills(s) 0 Start Date: 03/10/15 Status: Ordered gabapentin 300 mg oral capsule (5 sources) Anti-epileptic Agent Start: 05-24-2020 gabapentin (Neurontin) 300 MG capsule Indications: Other polyneuropathy TAKE 1 CAPSULE BY MOUTH IN THE MORNING AND 2 CAPSULES BY MOUTH AT NIGHT DIRECTED 270 capsule 3 10/08/2022 Active Start: 02-17-2015 take 1 capsule by [facility] at bedtime gabapentin 100 mg Cap 100 mg = 1 cap(s), Oral, Bedtime, Refills(s) 0, Other (see comment) Start Date: 02/17/15 Status: Ordered lisinopril 5 mg oral tablet (1 source) Angiotensin Converting Enzyme Inhibitor Start: 02-17-2015 take 1 tablet by mouth once daily lisinopril 5 mg Tab 5 mg = 1 tab(s), Oral, Daily, Refills(s) 0, High blood pressure Start Date: 02/17/15 Status: Ordered magnesium oxide 500 mg oral tablet (3 sources) Start: 05-24-2020 take 500 mg by mouth once daily at bedtime Magnesium Oxide Active 500 MG PO Daily at bedtime May 24, 2020 1:00am memantine hydrochloride 5 mg oral tablet (4 sources) H-bllqcz-[place] te Receptor Antagonist Start: 05-24-2020 End: 02-06-2024 take 1 tablet by mouth in the morning memantine (Namenda) 5 MG tablet Indications: Moderate Alzheimer's dementia, unspecified timing of dementia onset, unspecified whether behavioral, psychotic, or mood disturbance or anxiety (CMS/HCC) Take 1 tablet (5 mg) by mouth in the morning. 90 tablet 3 02/06/2023 02/06/2024 Active Multivitamin preparation (4 sources) Start: 04-13-2020 take 1 tablet by mouth once daily Multivitamin Active 1 TAB PO Daily April 13, 2020 12:16pm Start: 04-13-2020 End: 08-25-2023 take 1 tablet by mouth once daily Multivitamin Discontinued 1 TAB PO Daily April 13, 2020 1:00am August 25, 2023 11:45am Start: 04-13-2020 take 1 tablet by chuckie th once daily Multivitamin Active 1 TAB PO Daily April 13, 2020 1:00am take 1 tablet by chuckie th once daily Multivitamin - 1 tablet Orally Once a day Active oxybutynin chloride 5 mg oral tablet (6 sources) Cholinergic Muscarinic Antagonist Start: 04-13-2020 take 5 mg by mouth once daily Oxybutynin Chloride Active 5 MG PO Daily April 13, 2020 1:00am Start: 03-07-2015 take 1 tablet by chuckie th twice daily oxybutynin (Ditropan) 5 MG tablet Indications: Urticaria, unspecified TAKE 1 TABLET BY MOUTH TWICE DAILY 180 tablet 3 12/25/2022 Active take 1 tablet by chuckie th every twenty-four hours Oxybutynin Chloride ER 5 MG 1 tablet Orally Once a day Active predniSONE 20 mg oral tablet (1 source) Start: 03-25-2023 take 1 tablet by mouth in the morning predniSONE (Deltasone) 20 MG tablet Take 20 mg by mouth in the morning. 0 03/25/2023 Active Repeat CBC in am (1 source) Start: 03-10-2015 Repeat CBC in am Repeat CBC in am, Repeat CBC in a.m. and call or fax results to covering physician. Diagnosis anemia, Print Requisition, Supply Start Date: 03/10/15 Status: Ordered 24 hr venlafaxine 150 mg extended release oral capsule (11 sources) Serotonin and Norepinephrine Reuptake Inhibitor Start: 10-30-2022 take 1 capsule by mouth every twenty-four hours in the morning venlafaxine XR (Effexor XR) 75 MG 24 hr capsule Take 75 mg by mouth in the morning. 0 10/30/2022 Active Start: 05-24-2020 take 75 mg by mouth once daily Venlafaxine Active 75 MG PO Daily May 24, 2020 1:00am Start: 04-13-2020 End: 08-25-2023 take 150 mg by mouth once daily Venlafaxine Discontinu ed 150 MG PO Daily April 13, 2020 1:00am August 25, 2023 11:45am Start: 02-17-2015 take 150 mg by mouth once sebastian y Venlafaxine Active 150 MG PO Daily August 25, 2023 12:00am take 1 capsule by [facility] every twenty-four hours in the morning venlafaxine XR (Effexor XR) 150 MG 24 hr capsule Take 150 mg by mouth in the morning. 0 Active take 1 tablet by [facility] every twenty-four hours Venlafaxine HCl 100 MG 1 tablet with food Orally Once a day Active Vitamin C 500 MG (1 source) Vitamin C 500 MG as directed Orally Active Vitamin D3 (4 sources) Start: 04-13-2020 take 5000 [IU] by [facility] once daily Vitamin D3 Active 5000 UNITS PO Daily April 13, 2020 12:16pm Start: 04-13-2020 take 5000 [IU] by [facility] once daily Vitamin D3 Active 5000 UNITS PO Daily April 13, 2020 1:00am Start: 02-17-2015 Vitamin D3 2,0 00 International_Unit, Oral, Daily, Refills(s) 0, Other (see comment) Start Date: 02/17/15 Status: Ordered Vitamin D3 [id number] UNIT/GM (1 source) Vitamin D3 30322 00 UNIT/GM as directed Active Zinc (1 source) Start: 02-17-2015 Zinc 5 mg, Ora l, Daily, all in one Vitamin D3 200 IU, calcium 333mg Magnesium 133mg and Zinc 5 mg, Refills(s) 0, Prophylaxis Start Date: 02/17/15 Status: Ordered Completed/Discontinued Medications Medication Drug Class(es) Dates Sig (Normalized) Sig (Original) aspirin 325 mg delayed release oral tablet (1 source) Platelet Aggregation Inhibitor, Nonsteroidal Anti-inflammatory Drug Start: 03-10-2015 take 6-8 tablets by mouth twice daily aspirin 325 mg Oral EC Tab 325 mg = 1 tab(s), Oral, BID, take with 6 to 8 ounces of plain water and food, # 30 tab(s), Refills(s) 0 Start Date: 03/10/15 Status: Ordered biotin 10 mg oral capsule (5 sources) Start: 04-13-2020 End: 08-25-2023 take 74700 ug by mouth once daily Biotin Discontinued 21214 MCG PO Daily April 13, 2020 1:00am August 25, 2023 11:43am Start: 02-17-2015 take 1 tablet by chuckie th once daily biotin 1 tab, Oral, Daily, Refills(s) 0, Other (see comment) Start Date: 02/17/15 Status: Ordered take 1 tablet by chuckie th once daily Biotin 10 MG 1 tablet Orally Once a day Active calcium carbonate 1500 mg oral tablet (3 sources) Start: 05-03-2020 End: 08-25-2023 take 1 tablet by mouth once daily Calcium Carbonate (Calcium 600) 600 mg calcium (1,500 mg) Tablet Discontinued 600 MG PO Daily May 03, 2020 1:00am August 25, 2023 11:44am cephalexin 500 mg oral capsule (3 sources) Cephalosporin Antibacterial Start: 05-03-2020 End: 05-25-2020 take 1 capsule by mouth twice daily Cephalexin (Keflex) 500 mg capsule Discontinued 500 MG PO Twice daily 08 02May 03, 2020 1:00am May 25, 2020 12:13pm clindamycin 300 mg oral capsule (3 sources) Lincosamide Antibacterial Start: 04-15-2020 End: 05-03-2020 take 300 mg by mouth three times daily Clindamycin Hcl Discontinued 300 MG PO Three times daily 03 09April 15, 2020 1:00am May 03, 2020 10:51am famotidine 10 mg oral tablet (3 sources) Histamine-2 Receptor Antagonist Start: 05-24-2020 End: 08-25-2023 take 1 tablet by mouth once daily before mealtime Famotidine (Pepcid Ac) 10 mg Tablet,Chewable Discontinued 10 MG PO Daily May 24, 2020 1:00am August 25, 2023 11:45am Magnesium (4 sources) Start: 04-13-2020 End: 05-24-2020 take 15 mg by mouth once daily Magnesium Discontinued 15 MG PO Daily April 13, 2020 12:16pm May 24, 2020 4:30pm Start: 04-13-2020 End: 05-24-2020 take 15 mg by mouth once daily Magnesium Discontinued 15 MG PO Daily April 13, 2020 1:00am May 24, 2020 5:30pm take 1 tablet by chuckie th once daily Magnesium 500 MG 1 tablet with a meal Orally Once a day Active Suprep Bowel Prep . (1 source) Start: 12-30-2013 Suprep Bowel P rep . as directed Orally as directed for 1 dose(s) Dec, Not-Taking vitamin b12 2 mg extended release oral tablet (5 sources) Vitamin B12 Start: 05-24-2020 End: 08-25-2023 take 1 tablet by mouth once daily Cyanocobalamin (Vitamin B-12) (Vitamin B-12) 2,000 mcg Tablet Extended Release Discontinued 2000 MCG PO Daily May 24, 2020 1:00am August 25, 2023 11:45am Start: 02-17-2015 take 3000 ug by mout h once daily Vitamin B12 3000 mcg, Oral, Daily, Refills(s) 0, Other (see comment) Start Date: 02/17/15 Status: Ordered cyanocobalamin ( Vitamin B-12) 500 MCG tablet 1 (one) time each day at the same time. 0 Active Problems Active Problems Problem Classification Problem Date Documented Date Episodic/Chronic Administrative/social admission (2 sources) Patient encounter status; Translations: [Other specified counseling] Onset: 03-28-2023 03-28-2023 Episodic Coma; stupor; and brain damage (1 source) Somnolence; Translations: [Somnolence] Onset: 08-08-2022 Episodic Congestive heart failure; nonhypertensive (1 source) Chronic diastolic heart failure; Translations: [Chronic diastolic (congestive) heart failure] Onset: 10-16-2022 10-16-2022 Chronic Delirium, dementia, and amnestic and other cognitive disorders (1 source) Dementia; Translations: [Unspecified dementia without behavioral disturbance] Onset: 10-16-2022 10-16-2022 Chronic Disorders of lipid metabolism (1 source) Mixed hyperlipidemia; Translations: [Mixed hyperlipidemia] Onset: 03-28-2023 03-28-2023 Chronic Esophageal disorders (1 source) Gastroesophageal reflux disease without esophagitis; Translations: [Gastro-esophageal reflux disease without esophagitis] Onset: 10-16-2022 10-16-2022 Chronic Essential hypertension (1 source) Hypertensive disorder; Translations: [Essential (primary) hypertension] Onset: 10-16-2022 10-16-2022 Chronic Mood disorders (1 source) Recurrent major depression in partial remission; Translations: [Major depressive disorder, recurrent, in partial remission] Onset: 10-16-2022 10-16-2022 Chronic Osteoarthritis (2 sources) Degenerative joint disease involving multiple joints; Translations: [Polyosteoarthritis, unspecified] Onset: 10-16-2022 10-16-2022 Chronic Other connective tissue disease (1 source) History of left total knee replacement; Translations: [Presence of left artificial knee joint] Chronic Other ear and sense organ disorders (1 source) Sensorineural hearing loss, bilateral; Translations: [Sensorineural hearing loss, bilateral] Onset: 12-10-2022 12-10-2022 Chronic Other injuries and conditions due to external causes (3 sources) Open wound; Translations: [Other injury of unspecified body region, initial encounter] 04-13-2020 Episodic Other injuries and conditions due to external causes (2 sources) Wound ; Translations: [Traumatic wound] Episodic Other injuries and conditions due to external causes (1 source) Traumatic AND/OR non-traumatic injury 03-07-2015 Episodic Comment on above: some in legs Other lower respiratory disease (1 source) Unspecified acute lower respiratory infection Episodic Other nervous system disorders (1 source) Peripheral nerve disease ; Translations: [Polyneuropathy, unspecified] Onset: 10-16-2022 10-16-2022 Chronic Other nervous system disorders (1 source) Guillain-[place] syndrome; Translations: [Guillain-[place] syndrome] Onset: 10-16-2022 10-16-2022 Chronic Other nervous system disorders (1 source) Ataxia 02-17-2015 Episodic Pneumonia (except that caused by tuberculosis or sexually transmitted disease) (2 sources) Infective pneumonia; Translations: [Pneumonia, unspecified organism] Onset: 03-28-2023 03-28-2023 Episodic Comment on above: 1981 Residual codes; unclassified (1 source) Postmenopausal state; Translations: [Asymptomatic menopausal state] Onset: 03-28-2023 03-28-2023 Episodic Residual codes; unclassified (1 source) H/O: Disorder 02-17-2015 Episodic Comment on above: 1985 Skin and subcutaneous tissue infections (9 sources) Cellulitis of lower limb; Translations: [Cellulitis] 04-13-2020 Episodic Spondylosis; intervertebral disc disorders; other back problems (1 source) Degeneration of lumbar intervertebral disc 02-17-2015 Chronic Spondylosis; intervertebral disc disorders; other back problems (1 source) Lumbar radiculopathy 02-17-2015 Episodic Unclassified (2 sources) Wound ; Translations: [Traumatic wound] 05-03-2020 Past or Other Problems Problem Classification Problem Date Documented Da te Episodic/Chronic Allergic reactions (1 source) Urticaria; Translations: [Urticaria, unspecified] Onset: 10-16-2022 Resolved: 03-28-2023 03-28-2023 Episodic Conditions associated with dizziness or vertigo (1 source) Dizziness and giddiness; Translations: [Dizziness and giddiness] Onset: 10-31-2022 Resolved: 03-28-2023 03-28-2023 Episodic Diabetes mellitus without complication (1 source) Impaired fasting glycemia; Translations: [Impaired fasting glucose] Onset: 12-27-2022 12-27-2022 Episodic Malaise and fatigue (4 sources) Weakness; Translations: [WEAKNESS] Onset: 04-23-2021 Episodic Osteoporosis (1 source) Osteoporosis; Translations: [Age-related osteoporosis without current pathological fracture] Onset: 10-16-2022 Resolved: 03-28-2023 03-28-2023 Chronic Other connective tissue disease (1 source) Fibromyalgia; Translations: [Fibromyalgia] Onset: 10-16-2022 10-16-2022 Episodic Other ear and sense organ disorders (1 source) Bilateral tinnitus; Translations: [Tinnitus, bilateral] Onset: 12-27-2022 12-27-2022 Episodic Other gastrointestinal disorders (1 source) Constipation; Translations: [Other constipation] Onset: 10-16-2022 Resolved: 03-28-2023 03-28-2023 Episodic Other injuries and conditions due to external causes (1 source) Other injury of unspecified body region, initial encounter; Translations: [Non-rat rodent bite] Urinary tract infections (1 source) Acute cystitis; Translations: [Acute cystitis without hematuria] Onset: 12-27-2022 12-27-2022 Episodic Results Test Name Value Interpretation Reference Range Facility DEXA BONE DENSITYon 04-25-19 24 DEXA BONE DENSITY CLINICAL HISTORY: postmenopausal, osteopenia. COMPARISON: 01/16/2021. TECHNIQUE: The lumbar spine and both hips were scanned. FINDINGS: The mean bone mineral density from L1 through L4 is 1.168, and the T-score is 1.1, which is the standard deviation above the standard reference value for young adult. Bone mineral density of the left femoral neck is 0.672, and the T-score is -1.6, which is the standard deviation below the standard reference value for young adult. Bone mineral density of the right femoral neck is 0.618, and the T-score is -2.1, which is the standard deviation below the standard reference value for young adult. These values meet WHO criteria for osteopenia. 10 year probability (FRAX) of major osteoporotic fracture is 15%, and hip fracture 4.3%. Compared to prior study, 6.0% decrease in BMD of the lumbar spine and 0.8% decrease in BMD of both hips IMPRESSION: OSTEOPENIA. ELECTRONICALLY SIGNED BY: Lexx Tran MD Normal Not Available XR CHEST 2 VIEWSon 3 XR CHEST 2 VIEWS FINDINGS: Osseous structures intact. Cardiopericardial silhouette normal. Pulmonary vasculature normal. Lungs clear IMPRESSION: Impression: No acute cardiopulmonary disease. ELECTRONICALLY SIGNED BY: Costa Burton MD Normal Not Available CT head/brain wo conon 08-08 CT head/brain wo [facility] [place] [address] CT Scan Report Signed Patient: Shweta Gallegos MR#: [id number] 8 : 1940 Acct:[id number] Age/Sex: 82 / F ADM Date: 08/08/22 Loc: [facility] Room: Type: [facility] Attending Dr: Cj Rodriguez DO Copies to: Cj Rodriguez DO Ordering Provider: Cj A Michael,DO Date of Service: 08/08/22 CT/CT head/brain wo con: R40.0 CT BRAIN WITHOUT CONTRAST: CLINICAL HISTORY: Somnolence, slurred speech and dizziness COMPARISON: 03/05/2018 TECHNIQUE: Contiguous axial unenhanced images were obtained through the brain. This CT exam was performed using one or more following dose reduction techniques: Automated exposure control, adjustment of the mA and/or kV according to patient size, or use of iterative reconstruction technique. FINDINGS: There is mild generalized atrophy. The ventricles are normal in size and position. Mild microvascular changes are again noted. There are no additional areas of abnormal attenuation. There is no hemorrhage, mass effect or extra-axial collections. The imaged paranasal sinuses and mastoid air cells are clear. There is vertebrobasilar artery and carotid siphon plaque. CT/CT head/brain wo con IMPRESSION: ATROPHY AND CHRONIC MICROVASCULAR CHANGES. NO DEFINITE ACUTE INTRACRANIAL ABNORMALITY. FOLLOW-UP IS RECOMMENDED, SYMPTOMS WARRANT. Impression dictated by: Delaney Marrero M.D.08/08/2022 12:50 PM Dictation Location: [place] [address] Transcribed By: [facility] 08/08/22 1250 Dictated By: Delaney Marrero MD 08/08/22 1236 Signed By: 08/08/22 1250 Normal [facility] Automated basophil %on 05-24 Basophils/100 WBC (Bld) 0.3 % [facility] Automated basophil counton 0 05-24-2020 Basophils (Bld) [#/Vol] 0.0 10*3/uL 0.0-0.2 [facility] Automated blood lymphocyte c ount (number/volume)on 05-24-2020 Lymphocytes (Bld) [#/Vol] 2.7 10*3/uL 1.00-4.8 [facility] Automated blood lymphocyte c ount as percentage of total leukocyteson 05-24-2020 Lymphocytes/100 WBC (Bld) 37.9 % [facility] Automated blood monocyte cou nton 05-24-2020 Monocytes (Bld) [#/Vol] 0.6 10*3/uL 0.0-0.8 [facility] Automated blood platelet cou nt (count/volume)on 05-24-2020 Platelets (Bld) [#/Vol] 357 10*3/uL 150-450 [facility] Automated blood platelet flo n volume measurementon 05-24-2020 Platelet mean volume (Bld) [Entitic vol] 7.2 fL 6.3-10.7 [facility] Automated eosinophil %on Eosinophils/100 WBC (Bld) 3.5 % [facility] Automated eosinophil counton 05-24-2020 Eosinophils (Bld) [#/Vol] 0.3 10*3/uL 0.0-0.45 [facility] Automated erythrocyte distri bution width ratioon 05-24-2020 Erythrocyte distribution width (RBC) [Ratio] 14.1 % 11.9-15.3 [facility] Automated erythrocyte mean c orpuscular hemoglobin (mass per erythrocyte)on 05-24-2020 MCH (RBC) [Entitic mass] 30.8 pg 24.7-34.3 [facility] Automated erythrocyte mean c orpuscular hemoglobin concentration measurement (mass/volon 05-24-2020 MCHC (RBC) [Mass/Vol] 33.5 g/dL 32.0-35.0 [facility] Automated erythrocyte mean c orpuscular volumeon 05-24-2020 MCV (RBC) [Entitic vol] 91.8 fL 80-100 [facility] Automated monocyte %on 05-24 Monocytes/100 WBC (Bld) 8.0 % [facility] Automated neutrophil %on Neutrophils/100 WBC (Bld) 50.3 % [facility] Blood erythrocytes automated count (number/volume)on 05-24-2020 RBC (Bld) [#/Vol] 4.09 10*6/uL 3.60-5.00 [facility] Blood hemoglobin measurement (mass/volume)on 05-24-2020 Hemoglobin (Bld) [Mass/Vol] 12.6 g/dL 11.8-15.4 [facility] Blood leukocytes automated c ount (number/volume)on 05-24-2020 WBC (Bld) [#/Vol] 7.2 10*3/uL 4.5-11.0 [facility] Blood neutrophil count by au tomated method (number/volume)on 05-24-2020 Neutrophils (Bld) [#/Vol] 3.6 10*3/uL 1.8-7.7 [facility] Body fluid albumin measureme nt (mass/volume)on 05-24-2020 Albumin (Body fld) [Mass/Vol] 3.4 g/dL 3.2-5.5 [facility] COVID-19 Positive/Negativeon 05-24-2020 COVID-19 Positive/Negative Positive Negative [facility] Comment on above: Critical valueresult calledat 2143 on 05/24/20Testing for SARS-CoV-2 by RT-PCRThis test was developed and its performance characteristics determined by [employer] and validated at the [facility]. This test has not been FDA cleared or approved. This test has been authorized by FDA under an Emergency Use Authorization (EUA). This test has been validated in accordance with the FDA's Guidance Document (Policy for Diagnostics Testing in Laboratories Certified to Perform High Complexity Testing under CLIA prior to Emergency Use Authorization for Coronavirus Disease-2019 during the Public Health Emergency) issued on July 23, 2019. This test is only authorized for the duration of time the declaration that circumstances exist justifying the authorization of the emergency use of in vitro diagnostic tests for detection of SARS-CoV-2 virus and/or diagnosis of COVID-19 infection under section 564(b)(1) of the Act, 21 U.S.C. 360bbb-3(b)(1), unless the authorization is terminated or revoked sooner. Estimated glomerular filtrat ion rate (GFR) non- Americanon 05-24-2020 GFR/1.73 sq M predicted among non-blacks MDRD (S/P/Bld) [Vol rate/Area] mL/min/{1.73_m2} [facility] Hematocrit [Volume Fraction] of Blood by Automated counton 05-24-2020 Hematocrit (Bld) [Volume fraction] 37.5 % 34.0-46.4 [facility] Otheron 05-24-2020 GFR/1.73 sq M.predicted MDRD (S/P/Bld) [Vol rate/Area] mL/min/{1.73_m2} [facility] Comment on above: GFR estimated refere nce range: According to KDOQI guidelines, <60 ml/min/1.73m2 is sufficient to diagnose a patient with chronic kidney disease. Nucleated RBC/100 WBC (Bld) [Ratio] 0.1 % 0-0.5 [facility] Creatinine Clearance (Chem N/A [facility] Coronavirus 2019 PCR Interp N/A [facility] Protein [Mass/volume] in Ser um or Plasmaon 05-24-2020 Protein [Mass/Vol] 6.3 g/dL 6.1-7.9 [facility] Serum globulin measurement b y calculation (mass/volume)on 05-24-2020 Globulin (S) [Mass/Vol] 2.9 g/dL [facility] Serum or plasma alanine rae otransferase measurement without P-5'-P (enzymatic activion 05-24-2020 ALT No additional P-5'-P [Catalytic activity/Vol] 11 U/L 10-60 [facility] Serum or plasma albumin/glob ulin mass ratioon 05-24-2020 Albumin/Globulin [Mass ratio] 1.2 {ratio} [facility] Serum or plasma alkaline brenda sphatase measurement (enzymatic activity/volume)on 05-24-2020 ALP [Catalytic activity/Vol] 78 U/L 32-92 [facility] Serum or plasma aspartate am inotransferase measurement (enzymatic activity/volume)on 05-24-2020 AST [Catalytic activity/Vol] 19 U/L 10-42 [facility] Serum or plasma calcium daniel urement (mass/volume)on 05-24-2020 Calcium [Mass/Vol] 9.3 mg/dL 8.2-10.2 [facility] Serum or plasma chloride flo surement (moles/volume)on 05-24-2020 Chloride [Moles/Vol] 104 mmol/L 95-114 [facility] Serum or plasma creatinine m easurement with calculation of estimated glomerular filtron 05-24-2020 Creatinine [Mass/Vol] 0.62 mg/dL 0.44-1.03 [facility] Serum or plasma glucose daniel urement (mass/volume)on 05-24-2020 Glucose [Mass/Vol] 113 mg/dL 70-100 [facility] Comment on above: ADA recommended refe rence rangeRandom Glucose Reference Range is dependent on time and content of last meal. Glucose of more than 200 mg/dL in a nonstressed, ambulatory subject supports the diagnosis of Diabetes Mellitus. Serum or plasma potassium me asurement (moles/volume)on 05-24-2020 Potassium [Moles/Vol] 4.3 mmol/L 3.5-5.1 [facility] Serum or plasma sodium measu rement (moles/volume)on 05-24-2020 Sodium [Moles/Vol] 138 mmol/L 136-146 [facility] Serum or plasma total biliru bin measurement (mass/volume)on 05-24-2020 Bilirubin [Mass/Vol] 0.6 mg/dL 0.3-1.2 [facility] Serum or plasma total carbon dioxide measurement (moles/volume)on 05-24-2020 CO2 [Moles/Vol] 26.2 mmol/L 22.0-30.0 [facility] Serum or plasma urea nitroge n measurement (mass/volume)on 05-24-2020 Urea nitrogen [Mass/Vol] 10 mg/dL 9- [facility] Automated basophil %on 04-14 Basophils/100 WBC (Bld) 0.5 % [facility] Automated basophil counton 1 2019 Basophils (Bld) [#/Vol] 0.0 10*3/uL 0.0-0.2 [facility] Automated blood lymphocyte c ount (number/volume)on 04-14-2020 Lymphocytes (Bld) [#/Vol] 2.1 10*3/uL 1.00-4.8 [facility] Automated blood lymphocyte c ount as percentage of total leukocyteson 04-14-2020 Lymphocytes/100 WBC (Bld) 30.5 % [facility] Automated blood monocyte cou nton 04-14-2020 Monocytes (Bld) [#/Vol] 0.7 10*3/uL 0.0-0.8 [facility] Automated blood platelet cou nt (count/volume)on 04-14-2020 Platelets (Bld) [#/Vol] 307 10*3/uL 150-450 [facility] Automated blood platelet flo n volume measurementon 04-14-2020 Platelet mean volume (Bld) [Entitic vol] 7.4 fL 6.3-10.7 [facility] Automated eosinophil %on Eosinophils/100 WBC (Bld) 4.3 % [facility] Automated eosinophil counton 04-14-2020 Eosinophils (Bld) [#/Vol] 0.3 10*3/uL 0.0-0.45 [facility] Automated erythrocyte distri bution width ratioon 04-14-2020 Erythrocyte distribution width (RBC) [Ratio] 14.5 % 11.9-15.3 [facility] Automated erythrocyte mean c orpuscular hemoglobin (mass per erythrocyte)on 04-14-2020 MCH (RBC) [Entitic mass] 31.1 pg 24.7-34.3 [facility] Automated erythrocyte mean c orpuscular hemoglobin concentration measurement (mass/volon 04-14-2020 MCHC (RBC) [Mass/Vol] 33.3 g/dL 32.0-35.0 [facility] Automated erythrocyte mean c orpuscular volumeon 04-14-2020 MCV (RBC) [Entitic vol] 93.5 fL 80-100 [facility] Automated monocyte %on 04-14 Monocytes/100 WBC (Bld) 9.7 % [facility] Automated neutrophil %on Neutrophils/100 WBC (Bld) 55.0 % [facility] Blood erythrocytes automated count (number/volume)on 04-14-2020 RBC (Bld) [#/Vol] 4.04 10*6/uL 3.60-5.00 [facility] Blood hemoglobin measurement (mass/volume)on 04-14-2020 Hemoglobin (Bld) [Mass/Vol] 12.6 g/dL 11.8-15.4 [facility] Blood leukocytes automated c ount (number/volume)on 04-14-2020 WBC (Bld) [#/Vol] 6.7 10*3/uL 4.5-11.0 [facility] Blood neutrophil count by au tomated method (number/volume)on 04-14-2020 Neutrophils (Bld) [#/Vol] 3.7 10*3/uL 1.8-7.7 [facility] Hematocrit [Volume Fraction] of Blood by Automated counton 04-14-2020 Hematocrit (Bld) [Volume fraction] 37.8 % 34.0-46.4 [facility] Otheron 04-14-2020 Nucleated RBC/100 WBC (Bld) [Ratio] 0.5 % 0-0.5 [facility] Albumin [Mass/volume] in Ser um or Plasmaon 04-13-2020 Albumin [Mass/Vol] 3.3 g/dL 3.2-5.5 [facility] Bacterial blood cultureon Bacteria identified Cx Nom (Bld) NO GROWTH 5 DAYS [facility] COVID-19 SOFIAon 04-13-2020 COVID-19 PRADIP Negative Negative [facility] Comment on above: This is a duplicate test result based off of the Pradip SARS Antigen (DEBBIE) test performed within the Microbiology department. Erythrocyte sedimentation ra te by Photometric methodon 04-13-2020 ESR Photometric method (Bld) [Velocity] 27 mm/hr 0-29 [facility] Estimated glomerular filtrat ion rate (GFR) non- Americanon 04-13-2020 GFR/1.73 sq M predicted among non-blacks MDRD (S/P/Bld) [Vol rate/Area] mL/min/{1.73_m2} [facility] Otheron 04-13-2020 GFR/1.73 sq M.predicted MDRD (S/P/Bld) [Vol rate/Area] mL/min/{1.73_m2} [facility] Comment on above: GFR estimated refere nce range: According to KDOQI guidelines, <60 ml/min/1.73m2 is sufficient to diagnose a patient with chronic kidney disease. Pharmacy Creatinine Clearance (Chem 59.47 [facility] SARS Antigen (LFIA) [facility] Protein [Mass/volume] in Ser um or Plasmaon 04-13-2020 Protein [Mass/Vol] 6.4 g/dL 6.1-7.9 [facility] Serum globulin measurement b y calculation (mass/volume)on 04-13-2020 Globulin (S) [Mass/Vol] 3.1 g/dL [facility] Serum or plasma C reactive p rotein measurement (mass/volume)on 04-13-2020 CRP [Mass/Vol] < 0.5 mg/dL 0.0-1.0 [facility] Serum or plasma alanine rae otransferase measurement without P-5'-P (enzymatic activion 04-13-2020 ALT No additional P-5'-P [Catalytic activity/Vol] 8 U/L 10-60 [facility] Serum or plasma albumin/glob ulin mass ratioon 04-13-2020 Albumin/Globulin [Mass ratio] 1.1 {ratio} [facility] Serum or plasma alkaline brenda sphatase measurement (enzymatic activity/volume)on 04-13-2020 ALP [Catalytic activity/Vol] 71 U/L 32-92 [facility] Serum or plasma aspartate am inotransferase measurement (enzymatic activity/volume)on 04-13-2020 AST [Catalytic activity/Vol] 23 U/L 10-42 [facility] Serum or plasma calcium daniel urement (mass/volume)on 04-13-2020 Calcium [Mass/Vol] 8.9 mg/dL 8.2-10.2 [facility] Serum or plasma chloride flo surement (moles/volume)on 04-13-2020 Chloride [Moles/Vol] 102 mmol/L 95-114 [facility] Serum or plasma creatinine m easurement with calculation of estimated glomerular filtron 04-13-2020 Creatinine [Mass/Vol] 0.61 mg/dL 0.44-1.03 [facility] Serum or plasma glucose daniel urement (mass/volume)on 04-13-2020 Glucose [Mass/Vol] 112 mg/dL 70-100 [facility] Comment on above: ADA recommended refe rence rangeRandom Glucose Reference Range is dependent on time and content of last meal. Glucose of more than 200 mg/dL in a nonstressed, ambulatory subject supports the diagnosis of Diabetes Mellitus. Serum or plasma potassium me asurement (moles/volume)on 04-13-2020 Potassium [Moles/Vol] 3.8 mmol/L 3.5-5.1 [facility] Serum or plasma sodium measu rement (moles/volume)on 04-13-2020 Sodium [Moles/Vol] 137 mmol/L 136-146 [facility] Serum or plasma total biliru bin measurement (mass/volume)on 04-13-2020 Bilirubin [Mass/Vol] 0.8 mg/dL 0.3-1.2 [facility] Serum or plasma total carbon dioxide measurement (moles/volume)on 04-13-2020 CO2 [Moles/Vol] 25.8 mmol/L 22.0-30.0 [facility] Serum or plasma urea nitroge n measurement (mass/volume)on 04-13-2020 Urea nitrogen [Mass/Vol] 9 mg/dL 01-12 [facility] Urine lactic acid measuremen ton 04-13-2020 Lactate (U) [Moles/Vol] 1.2 mmol/L [facility] C REACTIVE PROTEINon 020 CRP [Mass/Vol] mg/L Normal 0.0-7.0 [facility] Comment on above: Order Comment: No: D o not add to previous draw Performed By: #### 0 0071, 91775, 34441, 74883, 45084, 81009 #### [facility] [address] CPKon 03-14-2020 CK [Catalytic activity/Vol] 30 U/L Normal 30-223 [facility] Comment on above: Order Comment: No: D o not add to previous draw Performed By: #### 0 0071, 58501, 93023, 96022, 34894, 33736 #### [facility] [address] D DIMER TESTon 03-14-2020 D-DIMER TEST 2.02 mcg/mL FEU High 0.27-0.49 [facility] Comment on above: Order Comment: No: D o not add to previous draw Result Comment: D-Di salvador values of less than 0.50 ug/ml (FEU) are considered to be a negative predictor of thrombosis. However, the D-Dimer result should be used in conjunction with pretest probability and should not be used alone to diagnose a thrombotic event. Performed By: #### 0 0071, 29787, 18904, 50838, 94045, 36449 #### [facility] [address] [place] [address], [facility] FERRITINon 03-14-2020 Ferritin [Mass/Vol] 67 ng/mL Normal 11-307 [facility] Comment on above: Order Comment: No: D o not add to previous draw Performed By: #### 0 0071, 04610, 26529, 08126, 76299, 84114 #### [facility] [address] [place] [address], [facility] LDH BLOODon 03-14-2020 LDH 137 Units/L Low 140-271 [facility] Comment on above: Order Comment: No: D o not add to previous draw Performed By: #### 0 0071, 84041, 39391, 35359, 77086, 20807 #### [facility] [address] LIVER BATTERYon 03-14-2020 Albumin [Mass/Vol] 3.4 g/dL Low 3.5-5.7 [facility] Comment on above: Order Comment: No: D o not add to previous draw Performed By: #### 0 0071, 17124, 77001, 86351, 05842, 06389 #### [facility] [address] [place] [address], [facility] ALKALINE PHOSPH 62 IU/L Normal 34-104 [facility] Comment on above: Order Comment: No: D o not add to previous draw Performed By: #### 0 0071, 11742, 05217, 61688, 87586, 36540 #### [facility] [address] ALT [Catalytic activity/Vol] 6 U/L Low 7-52 [facility] Comment on above: Order Comment: No: D o not add to previous draw Performed By: #### 0 0071, 18229, 56051, 85271, 97685, 70207 #### [facility] [address] [place] [address], [facility] AST [Catalytic activity/Vol] 15 U/L Normal 13-39 [facility] Comment on above: Order Comment: No: D o not add to previous draw Performed By: #### 0 0071, 26804, 11022, 75997, 42787, 50707 #### [facility] [address] [place] [address], [place] Bilirubin [Mass/Vol] 0.7 mg/dL Normal 0.3-1.0 [facility] Comment on above: Order Comment: No: D o not add to previous draw Performed By: #### 0 0071, 03198, 67515, 27279, 62535, 30530 #### [facility] [address] [place] [id number], [facility] Bilirubin.direct [Mass/Vol] 0.1 mg/dL Normal 0.0-0.2 [facility] Comment on above: Order Comment: No: D o not add to previous draw Performed By: #### 0 0071, 64379, 69788, 00560, 66792, 62446 #### [facility] [address] [place] [address], [facility] Protein [Mass/Vol] 5.9 g/dL Low 6.0-8.3 [facility] Comment on above: Order Comment: No: D o not add to previous draw Performed By: #### 0 0071, 39226, 77632, 35212, 51042, 46650 #### [facility] [address] [place] [address], [place] C REACTIVE PROTEINon 11-21-2 020 CRP [Mass/Vol] 2.2 mg/L Normal 0.0-7.0 [facility] Comment on above: Order Comment: No: D o not add to previous draw Performed By: #### 0 0071, 76001, 87506, 53536, 37057, 29441 #### [facility] [address] CBC W/DIFFon 03-12-2020 ABS BASOPHILS 0.0 10*3/uL Normal 0.0-0.2 [facility] Comment on above: Order Comment: No: D o not add to previous draw Performed By: #### 0 0071, 64810, 24679, 97552, 77351, 94536 #### [facility] [address] ABS IMM GRANS 0.0 10*3/uL Normal 0.0-0.2 [facility] Comment on above: Order Comment: No: D o not add to previous draw Performed By: #### 0 0071, 66783, 35845, 32677, 92512, 35377 #### [facility] [address] ABS NEUTROPHILS 1.2 10*3/uL Low 1.6-7.[address] [facility] Comment on above: Order Comment: No: D o not add to previous draw Performed By: #### 0 0071, 44332, 43149, 49674, 51693, 05423 #### [facility] [address] Basophils/100 WBC (Bld) 0.5 % Normal 0.0-1.0 [facility] Comment on above: Order Comment: No: D o not add to previous draw Performed By: #### 0 0071, 28530, 39061, 31421, 57502, 35475 #### [facility] [address] Eosinophils (Bld) [#/Vol] 0.2 10*3/uL Normal 0.0-0.5 [facility] Comment on above: Order Comment: No: D o not add to previous draw Performed By: #### 0 0071, 08098, 54706, 92950, 02186, 98798 #### [facility] [address] [place] [address], [facility] Eosinophils/100 WBC (Bld) 4.7 % Normal 0.0-6.0 [facility] Comment on above: Order Comment: No: D o not add to previous draw Performed By: #### 0 0071, 35162, 38373, 85930, 08456, 31719 #### [facility] [address] [place] [address], [facility] Erythrocyte distribution width (RBC) [Ratio] 13.2 % Normal 11.5-15.0 [facility] Comment on above: Order Comment: No: D o not add to previous draw Performed By: #### 0 0071, 37663, 47436, 83684, 16160, 93488 #### [facility] [address] Hematocrit (Bld) [Volume fraction] 33.7 % Low 36.0-45.0 [facility] Comment on above: Order Comment: No: D o not add to previous draw Performed By: #### 0 0071, 59155, 10344, 41940, 57418, 68688 #### [facility] [address] [facility] [place] [address], [facility] Hemoglobin (Bld) [Mass/Vol] 10.9 g/dL Low 12.0-15.0 [facility] Comment on above: Order Comment: No: D o not add to previous draw Performed By: #### 0 0071, 08160, 74209, 29790, 43829, 82273 #### [facility] [address] [place] [address], [facility] IMMATURE GRANS 0.2 % Normal 0.0-1.0 [facility] Comment on above: Order Comment: No: D o not add to previous draw Performed By: #### 0 0071, 35539, 90270, 36573, 69383, 49747 #### [facility] [address] [facility] [address], [facility] Lymphocytes (Bld) [#/Vol] 2.2 10*3/uL Normal 1.2-4.0 [facility] Comment on above: Order Comment: No: D o not add to previous draw Performed By: #### 0 0071, 75302, 71321, 96149, 51223, 99664 #### [facility] [address] [facility] [place] [address], [facility] Lymphocytes/100 WBC (Bld) 53.7 % High 20.0-45.0 [facility] Comment on above: Order Comment: No: D o not add to previous draw Performed By: #### 0 0071, 21556, 56792, 63437, 08215, 56662 #### [facility] [address] [facility] [place] [address], [facility] MCH (RBC) [Entitic mass] 30.1 pg Normal 27.0-33.0 [facility] Comment on above: Order Comment: No: D o not add to previous draw Performed By: #### 0 0071, 70221, 53619, 63993, 15313, 74462 #### [facility] [address] [facility] [place] [address], [facility] MCHC (RBC) [Mass/Vol] 32.3 g/dL Normal 32.0-35.0 [facility] Comment on above: Order Comment: No: D o not add to previous draw Performed By: #### 0 0071, 82507, 39802, 53349, 27375, 49407 #### [facility] [address] [place] [address], [facility] MCV (RBC) [Entitic vol] 93.1 fL Normal 82.0-98.0 [facility] Comment on above: Order Comment: No: D o not add to previous draw Performed By: #### 0 0071, 64237, 26430, 11150, 94670, 79112 #### [facility] [address] [facility] [address], [facility] Monocytes (Bld) [#/Vol] 0.5 10*3/uL Normal 0.1-1.0 [facility] Comment on above: Order Comment: No: D o not add to previous draw Performed By: #### 0 0071, 32665, 36459, 89126, 32919, 77808 #### [facility] [address] [place] [address], [facility] MONOS 11.1 % Normal 5.0-12.0 [facility] Comment on above: Order Comment: No: D o not add to previous draw Performed By: #### 0 0071, 17142, 05507, 22930, 22627, 77095 #### [facility] [address] [facility] [place] [address], [facility] Neutrophils/100 WBC (Bld) 29.8 % Low 40.0-72.0 [facility] Comment on above: Order Comment: No: D o not add to previous draw Performed By: #### 0 0071, 54130, 01623, 07003, 16185, 06140 #### [facility] [address] [place] [address], [facility] Nucleated RBC/100 WBC (Bld) [Ratio] 0 % Normal 0-0 [facility] Comment on above: Order Comment: No: D o not add to previous draw Performed By: #### 0 0071, 70039, 17114, 08190, 74154, 07650 #### [facility] [address] [facility] [place] [address], [facility] PLAT CNT 263 10*3/uL Normal 150-400 [facility] Comment on above: Order Comment: No: D o not add to previous draw Performed By: #### 0 0071, 16287, 04386, 01402, 89826, 54007 #### [facility] [address] [facility] [address], [facility] RBC (Bld) [#/Vol] 3.62 10*6/uL Low 3.80-5.00 [facility] Comment on above: Order Comment: No: D o not add to previous draw Performed By: #### 0 0071, 36690, 48942, 99599, 08991, 72717 #### [facility] [address] [facility] [address] WBC (Bld) [#/Vol] 4.06 10*3/uL Normal 4.00-10.60 [facility] Comment on above: Order Comment: No: D o not add to previous draw Performed By: #### 0 0071, 86766, 57093, 06832, 20961, 87888 #### [facility] [address] [facility]. [address] CPKon 03-12-2020 CK [Catalytic activity/Vol] 23 U/L Low 30-223 [facility] Comment on above: Order Comment: Unkno wn Performed By: #### 8 4045, 82569, 51737, 18163 #### [facility] [address] [facility]. [address] D DIMER TESTon 03-12-2020 D-DIMER TEST 0.49 mcg/mL FEU Normal 0.27-0.49 [facility] Comment on above: Order Comment: No: D o not add to previous draw Result Comment: D-Di salvador values of less than 0.50 ug/ml (FEU) are considered to be a negative predictor of thrombosis. However, the D-Dimer result should be used in conjunction with pretest probability and should not be used alone to diagnose a thrombotic event. Performed By: #### 0 0071, 15013, 30989, 92303, 62390, 97716 #### [facility] [address] [facility]. [address] FERRITINon 03-12-2020 Ferritin [Mass/Vol] 58 ng/mL Normal 11-307 [facility] Comment on above: Order Comment: Unkno wn Performed By: #### 8 4045, 30127, 24279, 22652 #### [facility] [address] [place] [address], [place] LDH BLOODon 03-12-2020 LDH 120 Units/L Low 140-271 [facility] Comment on above: Order Comment: Unkno wn Performed By: #### 8 4045, 29773, 86166, 50492 #### [facility] [address] [place] [address], [place] LIVER BATTERYon 03-12-2020 Albumin [Mass/Vol] 3.2 g/dL Low 3.5-5.7 [facility] Comment on above: Order Comment: Unkno wn Performed By: #### 8 4045, 46520, 86591, 71018 #### [facility] [address] [place] [address], [place] ALKALINE PHOSPH 57 IU/L Normal 34-104 [facility] Comment on above: Order Comment: Unkno wn Performed By: #### 8 4045, 24671, 02700, 91970 #### [facility] [address] [place] [address], [place] ALT [Catalytic activity/Vol] 6 U/L Low 7-52 [facility] Comment on above: Order Comment: Unkno wn Performed By: #### 8 4045, 42022, 90774, 06877 #### [facility] [address] [place] [address], [place] AST [Catalytic activity/Vol] 16 U/L Normal 13-39 [facility] Comment on above: Order Comment: Unkno wn Performed By: #### 8 4045, 40512, 87429, 65078 #### [facility] [address] [place] [address], [place] Bilirubin [Mass/Vol] 0.5 mg/dL Normal 0.3-1.0 [facility] Comment on above: Order Comment: Unkno wn Performed By: #### 8 4045, 62371, 07683, 88680 #### [facility] [address] [place] [address], [facility] Bilirubin.direct [Mass/Vol] 0.1 mg/dL Normal 0.0-0.2 [facility] Comment on above: Order Comment: Unkno wn Performed By: #### 8 4045, 91743, 02061, 78828 #### [facility] [address] [place] [address], [facility] Protein [Mass/Vol] 5.6 g/dL Low 6.0-8.3 [facility] Comment on above: Order Comment: Unkno wn Performed By: #### 8 4045, 44098, 95108, 00932 #### [facility] [address] [place] [id number], [facility] BASIC METABOLIC PANELon 11-2 0-2020 Calcium [Mass/Vol] 8.7 mg/dL Normal 8.6-10.3 [facility] Comment on above: Order Comment: No: D o not add to previous draw Performed By: #### 0 0071, 82206, 21947, 62747, 77803, 50382 #### [facility] [address] [place] [address], [place] Chloride [Moles/Vol] 104 mmol/L Normal 98-107 [facility] Comment on above: Order Comment: No: D o not add to previous draw Performed By: #### 0 0071, 29504, 59702, 68882, 93875, 71172 #### [facility] [address] [place] [address], [place] CO2 [Moles/Vol] 28 mmol/L Normal 21-31 [facility] Comment on above: Order Comment: No: D o not add to previous draw Performed By: #### 0 0071, 71157, 52886, 89301, 07900, 35522 #### [facility] [address] [place] [address], [place] Creatinine [Mass/Vol] 0.54 mg/dL Low 0.60-1.20 [facility] Comment on above: Order Comment: No: D o not add to previous draw Performed By: #### 0 0071, 55627, 82092, 35222, 78133, 98673 #### [facility] [address] [place] [address], [place] GFR/1.73 sq M predicted among blacks MDRD (S/P/Bld) [Vol rate/Area] mL/min/{1.73_m2} Normal >60 [facility] Comment on above: Order Comment: No: D o not add to previous draw Result Comment: Calc ulation may not be valid for patients over 70 years Performed By: #### 0 0071, 80346, 38518, 66013, 29703, 98708 #### [facility] [address] [place] [address], [place] GFR/1.73 sq M predicted among non-blacks MDRD (S/P/Bld) [Vol rate/Area] mL/min/{1.73_m2} Normal >60 [facility] Comment on above: Order Comment: No: D o not add to previous draw Result Comment: Calc ulation may not be valid for patients over 70 years Performed By: #### 0 0071, 26003, 73725, 01643, 87099, 59057 #### [facility] [address] [place] [address], [place] Glucose [Mass/Vol] 103 mg/dL High 70-100 [facility] Comment on above: Order Comment: No: D o not add to previous draw Performed By: #### 0 0071, 35334, 73268, 38088, 61825, 52173 #### [facility] [address] Potassium [Moles/Vol] 4.1 mmol/L Normal 3.5-5.1 [facility] Comment on above: Order Comment: No: D o not add to previous draw Performed By: #### 0 0071, 57562, 31102, 96132, 97699, 28257 #### [facility] [address] [place] [address], [facility] Sodium [Moles/Vol] 139 mmol/L Normal 136-145 [facility] Comment on above: Order Comment: No: D o not add to previous draw Performed By: #### 0 0071, 44987, 61959, 80870, 85683, 84260 #### [facility] [address] [place] [address], [facility] Urea nitrogen [Mass/Vol] 7 mg/dL Normal 7-25 [facility] Comment on above: Order Comment: No: D o not add to previous draw Performed By: #### 0 0071, 00641, 89303, 62100, 83976, 94890 #### [facility] [address] [facility] [place] [address], [facility] CBC W/DIFFon 03-11-2020 ABS BASOPHILS 0.0 10*3/uL Normal 0.0-0.2 The [facility] Comment on above: Order Comment: No: D o not add to previous draw Performed By: #### 0 0071, 76130, 97284, 34151, 55168, 73804 #### [facility] [address] [place] [address], [facility] ABS IMM GRANS 0.0 10*3/uL Normal 0.0-0.2 [facility] Comment on above: Order Comment: No: D o not add to previous draw Performed By: #### 0 0071, 10037, 96840, 59361, 04319, 26858 #### [facility] [address] [place] [address], [facility] ABS NEUTROPHILS 2.2 10*3/uL Normal 1.6-7.[address] [facility] Comment on above: Order Comment: No: D o not add to previous draw Performed By: #### 0 0071, 33284, 54987, 94922, 16760, 42388 #### [facility] [address] [place] [address], [facility] Basophils/100 WBC (Bld) 0.2 % Normal 0.0-1.0 [facility] Comment on above: Order Comment: No: D o not add to previous draw Performed By: #### 0 0071, 92164, 80676, 87067, 29847, 14075 #### [facility] [address] [facility] [address], [facility] Eosinophils (Bld) [#/Vol] 0.2 10*3/uL Normal 0.0-0.5 [facility] Comment on above: Order Comment: No: D o not add to previous draw Performed By: #### 0 0071, 09490, 72748, 23434, 27026, 56836 #### [facility] [address] [place] [address], [facility] Eosinophils/100 WBC (Bld) 3.7 % Normal 0.0-6.0 [facility] Comment on above: Order Comment: No: D o not add to previous draw Performed By: #### 0 0071, 93349, 33231, 32378, 25520, 06803 #### [facility] [address] [place] [address], [facility] Erythrocyte distribution width (RBC) [Ratio] 13.4 % Normal 11.5-15.0 [facility] Comment on above: Order Comment: No: D o not add to previous draw Performed By: #### 0 0071, 45850, 39797, 51784, 74386, 57288 #### [facility] [address] [place] [address], [facility] Hematocrit (Bld) [Volume fraction] 35.8 % Low 36.0-45.0 [facility] Comment on above: Order Comment: No: D o not add to previous draw Performed By: #### 0 0071, 88650, 61616, 41645, 88841, 86897 #### [facility] [address] [place] [address], [facility] Hemoglobin (Bld) [Mass/Vol] 11.6 g/dL Low 12.0-15.0 [facility] Comment on above: Order Comment: No: D o not add to previous draw Performed By: #### 0 0071, 96143, 95927, 89190, 36522, 82765 #### [facility] [address] [facility] [address], [facility] IMMATURE GRANS 0.0 % Normal 0.0-1.0 The [facility] Comment on above: Order Comment: No: D o not add to previous draw Performed By: #### 0 0071, 03225, 79758, 87712, 25896, 40714 #### [facility] [address] [place] [address], [facility] Lymphocytes (Bld) [#/Vol] 2.1 10*3/uL Normal 1.2-4.0 [facility] Comment on above: Order Comment: No: D o not add to previous draw Performed By: #### 0 0071, 39555, 52277, 93536, 20697, 49405 #### [facility] [address] [place] [address], [facility] Lymphocytes/100 WBC (Bld) 42.2 % Normal 20.0-45.0 [facility] Comment on above: Order Comment: No: D o not add to previous draw Performed By: #### 0 0071, 38065, 73353, 88399, 06916, 33439 #### [facility] [address] [place] [id number], [facility] MCH (RBC) [Entitic mass] 30.1 pg Normal 27.0-33.0 [facility] Comment on above: Order Comment: No: D o not add to previous draw Performed By: #### 0 0071, 71409, 97419, 33003, 52397, 71528 #### [facility] [address] [place] [address], [facility] MCHC (RBC) [Mass/Vol] 32.4 g/dL Normal 32.0-35.0 [facility] Comment on above: Order Comment: No: D o not add to previous draw Performed By: #### 0 0071, 49001, 17206, 93471, 69979, 55196 #### [facility] [address] [facility] [place] [address], [facility] MCV (RBC) [Entitic vol] 92.7 fL Normal 82.0-98.0 [facility] Comment on above: Order Comment: No: D o not add to previous draw Performed By: #### 0 0071, 62601, 51316, 40481, 70385, 46069 #### [facility] [address] [place] [address], [facility] Monocytes (Bld) [#/Vol] 0.5 10*3/uL Normal 0.1-1.0 [facility] Comment on above: Order Comment: No: D o not add to previous draw Performed By: #### 0 0071, 66853, 92811, 75197, 14879, 28462 #### [facility] [address] [place] [address], [facility] MONOS 9.1 % Normal 5.0-12.0 [facility] Comment on above: Order Comment: No: D o not add to previous draw Performed By: #### 0 0071, 91220, 18895, 85699, 11767, 58257 #### [facility] [address] [place] [address], [facility] Neutrophils/100 WBC (Bld) 44.8 % Normal 40.0-72.0 [facility] Comment on above: Order Comment: No: D o not add to previous draw Performed By: #### 0 0071, 42940, 05484, 65337, 94570, 10913 #### [facility] [address] Nucleated RBC/100 WBC (Bld) [Ratio] 0 % Normal 0-0 [facility] Comment on above: Order Comment: No: D o not add to previous draw Performed By: #### 0 0071, 68765, 03545, 85099, 65336, 73492 #### [facility] [address] PLAT CNT 246 10*3/uL Normal 150-400 The [facility] Comment on above: Order Comment: No: D o not add to previous draw Performed By: #### 0 0071, 99986, 60451, 76241, 78210, 16869 #### [facility] [address] RBC (Bld) [#/Vol] 3.86 10*6/uL Normal 3.80-5.00 The [facility] Comment on above: Order Comment: No: D o not add to previous draw Performed By: #### 0 0071, 79809, 52610, 28387, 28523, 59865 #### [facility] [address] [facility] [place] [address], [facility] WBC (Bld) [#/Vol] 4.93 10*3/uL Normal 4.00-10.60 The [facility] Comment on above: Order Comment: No: D o not add to previous draw Performed By: #### 0 0071, 33735, 95191, 09698, 88062, 42171 #### [facility] [address] [facility] APTTon 03-10-2020 aPTT Coag (Bld) [Time] 30.9 s Normal 25.0-35.0 The [facility] Comment on above: Result Comment: ALL RESULTS MUST BE INTERPRETED WITH RESPECT TO BLOOD DRAWING ARTIFACT OR DILUTION ERROR OF ANTICOAGULANT AT THE TIME OF SAMPLING. THE APTT SHOULD NOT BE USED TO MONITOR UNFRACTIONATED HEPARIN THERAPY, THIS LABORATORY NO LONGER HAS AN ESTABLISHED THERAPEUTIC RANGE BASED ON THE APTT. IT IS RECOMMENDED THAT THE [facility] - HEPARIN ASSAY (ANTI-XA ACTIVITY) BE USED FOR THIS PURPOSE. Performed By: #### 0 0071, 91912, 74129, 89829, 18795, 76094 #### [facility] [address] BASIC METABOLIC PANELon 11 Calcium [Mass/Vol] 8.0 mg/dL Low 8.6-10.3 [facility] Comment on above: Order Comment: No: D o not add to previous draw Performed By: #### 0 0071, 57665, 29222, 34677, 24664, 16216 #### [facility] [address] [facility] [place] [address], [facility] Chloride [Moles/Vol] 107 mmol/L Normal 98-107 [facility] Comment on above: Order Comment: No: D o not add to previous draw Performed By: #### 0 0071, 64963, 34923, 83645, 00086, 45168 #### [facility] [address] [facility] [place] [address], [facility] CO2 [Moles/Vol] 27 mmol/L Normal 21-31 [facility] Comment on above: Order Comment: No: D o not add to previous draw Performed By: #### 0 0071, 87641, 00397, 15221, 29721, 52216 #### [facility] [address] [facility] [place] [address], [facility] Creatinine [Mass/Vol] 0.58 mg/dL Low 0.60-1.20 [facility] Comment on above: Order Comment: No: D o not add to previous draw Performed By: #### 0 0071, 08604, 42245, 31170, 04854, 38904 #### [facility] [address] [place] [address], [facility] Glucose [Mass/Vol] 100 mg/dL Normal 70-100 The [facility] Comment on above: Order Comment: No: D o not add to previous draw Performed By: #### 0 0071, 89676, 34636, 42401, 99818, 98439 #### [facility] [address] [place] [address], [facility] Potassium [Moles/Vol] 3.9 mmol/L Normal 3.5-5.1 [facility] Comment on above: Order Comment: No: D o not add to previous draw Performed By: #### 0 0071, 29456, 46188, 06905, 66515, 22487 #### [facility] [address] [place] [address], [facility] Sodium [Moles/Vol] 138 mmol/L Normal 136-145 [facility] Comment on above: Order Comment: No: D o not add to previous draw Performed By: #### 0 0071, 90300, 66211, 08386, 01374, 20029 #### [facility] [address] [place] [address], [facility] BNP EDon 03-10-2020 Natriuretic peptide B (Bld) [Mass/Vol] 42 pg/mL Normal 0-100 [facility] Comment on above: Result Comment: Give n the appropriate clinical setting a BNP result of >100 pg/mL indicates congestive heart failure. Performed By: #### 0 0071, 12638, 77187, 10655, 81346, 02083 #### [facility] [address] [place] [address], [facility] C REACTIVE PROTEINon 020 CRP [Mass/Vol] 1.3 mg/L Normal 0.0-7.0 The [facility] Comment on above: Performed By: #### 0 0071, 51965, 44871, 22059, 19673, 82309 #### [facility] [address] [place] [address], [facility] CRP [Mass/Vol] 1.8 mg/L Normal 0.0-7.0 [facility] Comment on above: Order Comment: No: D o not add to previous draw Performed By: #### 0 0071, 97133, 76077, 33406, 13229, 15789 #### [facility] [address] [place] [address], [facility] CBC W/DIFFon 03-10-2020 ABS NEUTROPHILS 2.9 10*3/uL Normal 1.6-7.[address] [facility] Comment on above: Performed By: #### 0 0071, 54374, 69833, 92836, 02849, 68046 #### [facility] [address] [place] [address], [facility] Eosinophils/100 WBC (Bld) 3.8 % Normal 0.0-6.0 [facility] Comment on above: Performed By: #### 0 0071, 55983, 95518, 62759, 09765, 69727 #### [facility] [address] [facility] [place] [address], [facility] Erythrocyte distribution width (RBC) [Ratio] 13.6 % Normal 11.5-15.0 [facility] Comment on above: Performed By: #### 0 0071, 50943, 35103, 27328, 66586, 35171 #### [facility] [address] [place] [address], [facility] Hematocrit (Bld) [Volume fraction] 30.8 % Low 36.0-45.0 [facility] Comment on above: Performed By: #### 0 0071, 47124, 66110, 05230, 96872, 37778 #### [facility] [address] [place] [address], [facility] Hemoglobin (Bld) [Mass/Vol] 9.8 g/dL Low 12.0-15.0 [facility] Comment on above: Performed By: #### 0 0071, 99748, 97756, 66664, 44736, 78793 #### [facility] [address] [facility] [address], [facility] IMMATURE GRANS 0.6 % Normal 0.0-1.0 The [facility] Comment on above: Performed By: #### 0 0071, 47933, 74360, 31836, 76107, 15765 #### [facility] [address] [facility] [place] [place] [address], [facility] Lymphocytes (Bld) [#/Vol] 1.6 10*3/uL Normal 1.2-4.0 [facility] Comment on above: Performed By: #### 0 0071, 39416, 39193, 75412, 57703, 09139 #### [facility] [address] [facility] [place] [address], [facility] Lymphocytes/100 WBC (Bld) 30.8 % Normal 20.0-45.0 [facility] Comment on above: Performed By: #### 0 0071, 84906, 52259, 56324, 07198, 39020 #### [facility] [address] [facility] [place] [address], [facility] MCH (RBC) [Entitic mass] 30.5 pg Normal 27.0-33.0 [facility] Comment on above: Performed By: #### 0 0071, 94797, 65266, 43952, 26806, 84099 #### [facility] [address] [facility] [place] [address], [facility] MCHC (RBC) [Mass/Vol] 31.8 g/dL Low 32.0-35.0 [facility] Comment on above: Performed By: #### 0 0071, 07260, 81086, 20438, 18674, 42590 #### [facility] [address] MCV (RBC) [Entitic vol] 96.0 fL Normal 82.0-98.0 [facility] Comment on above: Performed By: #### 0 0071, 53185, 79610, 20481, 75036, 03170 #### [facility] [address] [facility] [place] [address], [facility] Monocytes (Bld) [#/Vol] 0.5 10*3/uL Normal 0.1-1.0 [facility] Comment on above: Performed By: #### 0 0071, 78431, 83186, 55500, 31291, 01500 #### [facility] [address] MONOS 9.8 % Normal 5.0-12.0 [facility] Comment on above: Performed By: #### 0 0071, 19230, 24095, 09426, 96424, 88069 #### [facility] [address] Neutrophils/100 WBC (Bld) 54.6 % Normal 40.0-72.0 [facility] Comment on above: Performed By: #### 0 0071, 82827, 52051, 40514, 80203, 88527 #### [facility] [address] [place] [address], [facility] PLAT CNT 183 10*3/uL Normal 150-400 [facility] Comment on above: Performed By: #### 0 0071, 42054, 21154, 29084, 71932, 77399 #### [facility] [address] [place] [address], [facility] RBC (Bld) [#/Vol] 3.21 10*6/uL Low 3.80-5.00 [facility] Comment on above: Performed By: #### 0 0071, 34371, 08049, 79492, 30294, 83201 #### [facility] [address] WBC (Bld) [#/Vol] 5.33 10*3/uL Normal 4.00-10.60 The [facility] Comment on above: Performed By: #### 0 0071, 80113, 35751, 13489, 35960, 61097 #### [facility] [address] ABS BASOPHILS 0.0 10*3/uL Normal 0.0-0.2 [facility] Comment on above: Performed By: #### 0 0071, 86831, 08983, 88712, 61852, 91156 #### [facility] [address] Order Comment: No: D o not add to previous draw ABS IMM GRANS 0.0 10*3/uL Normal 0.0-0.2 [facility] Comment on above: Performed By: #### 0 0071, 66429, 62435, 87652, 52604, 82409 #### [facility] [address] Order Comment: No: D o not add to previous draw ABS NEUTROPHILS 2.4 10*3/uL Normal 1.6-7.[address] [facility] Comment on above: Order Comment: No: D o not add to previous draw Performed By: #### 0 0071, 69044, 01364, 92596, 42155, 48665 #### [facility] [address] Basophils/100 WBC (Bld) 0.4 % Normal 0.0-1.0 [facility] Comment on above: Performed By: #### 0 0071, 16903, 80351, 71717, 92795, 36306 #### [facility] [address] Order Comment: No: D o not add to previous draw Eosinophils (Bld) [#/Vol] 0.2 10*3/uL Normal 0.0-0.5 [facility] Comment on above: Performed By: #### 0 0071, 09447, 27709, 90196, 49296, 94742 #### [facility] [address] Order Comment: No: D o not add to previous draw Eosinophils/100 WBC (Bld) 4.2 % Normal 0.0-6.0 [facility] Comment on above: Order Comment: No: D o not add to previous draw Performed By: #### 0 0071, 85476, 89230, 53105, 50918, 01088 #### [facility] [address] Erythrocyte distribution width (RBC) [Ratio] 13.5 % Normal 11.5-15.0 [facility] Comment on above: Order Comment: No: D o not add to previous draw Performed By: #### 0 0071, 27822, 32129, 56120, 96492, 41635 #### [facility] [address] Hematocrit (Bld) [Volume fraction] 33.4 % Low 36.0-45.0 [facility] Comment on above: Order Comment: No: D o not add to previous draw Performed By: #### 0 0071, 39568, 69607, 72131, 70717, 47471 #### [facility] [address] Hemoglobin (Bld) [Mass/Vol] 10.4 g/dL Low 12.0-15.0 [facility] Comment on above: Order Comment: No: D o not add to previous draw Performed By: #### 0 0071, 10681, 46590, 89989, 35673, 38883 #### [facility] [address] IMMATURE GRANS 0.2 % Normal 0.0-1.0 The [facility] Comment on above: Order Comment: No: D o not add to previous draw Performed By: #### 0 0071, 24790, 23642, 80566, 99349, 88521 #### [facility] [address] [facility] [place] [address], [facility] Lymphocytes (Bld) [#/Vol] 2.2 10*3/uL Normal 1.2-4.0 [facility] Comment on above: Order Comment: No: D o not add to previous draw Performed By: #### 0 0071, 20851, 14978, 58168, 22313, 87011 #### [facility] [address] [place] [address], [facility] Lymphocytes/100 WBC (Bld) 42.2 % Normal 20.0-45.0 [facility] Comment on above: Order Comment: No: D o not add to previous draw Performed By: #### 0 0071, 94323, 41945, 24804, 90091, 03874 #### [facility] [address] [place] [address], [facility] MCH (RBC) [Entitic mass] 30.0 pg Normal 27.0-33.0 [facility] Comment on above: Order Comment: No: D o not add to previous draw Performed By: #### 0 0071, 40408, 55110, 77579, 63872, 66867 #### [facility] [address] [place] [address], [facility] MCHC (RBC) [Mass/Vol] 31.1 g/dL Low 32.0-35.0 [facility] Comment on above: Order Comment: No: D o not add to previous draw Performed By: #### 0 0071, 89381, 08698, 83627, 92941, 18880 #### [facility] [address] [place] [address], [facility] MCV (RBC) [Entitic vol] 96.3 fL Normal 82.0-98.0 [facility] Comment on above: Order Comment: No: D o not add to previous draw Performed By: #### 0 0071, 35307, 09399, 10188, 98968, 65741 #### [facility] [address] [place] [address], [facility] Monocytes (Bld) [#/Vol] 0.4 10*3/uL Normal 0.1-1.0 [facility] Comment on above: Order Comment: No: D o not add to previous draw Performed By: #### 0 0071, 01313, 32623, 39323, 11092, 46419 #### [facility] [address] [facility] MONOS 7.4 % Normal 5.0-12.0 [facility] Comment on above: Order Comment: No: D o not add to previous draw Performed By: #### 0 0071, 40906, 21183, 35879, 76715, 18307 #### [facility] [address] [facility] [address] Neutrophils/100 WBC (Bld) 45.6 % Normal 40.0-72.0 [facility] Comment on above: Order Comment: No: D o not add to previous draw Performed By: #### 0 0071, 13812, 25553, 21501, 70878, 70032 #### [facility] [address] [facility] [place] [address], [facility] Nucleated RBC/100 WBC (Bld) [Ratio] 0 % Normal 0-0 [facility] Comment on above: Performed By: #### 0 0071, 78530, 29997, 68354, 01931, 01693 #### [facility] [address] Order Comment: No: D o not add to previous draw PLAT CNT 209 10*3/uL Normal 150-400 [facility] Comment on above: Order Comment: No: D o not add to previous draw Performed By: #### 0 0071, 08550, 50438, 56608, 25903, 69606 #### [facility] [address] [place] [address], [facility] RBC (Bld) [#/Vol] 3.47 10*6/uL Low 3.80-5.00 [facility] Comment on above: Order Comment: No: D o not add to previous draw Performed By: #### 0 0071, 56370, 79356, 58360, 44923, 05463 #### [facility] [address] [place] [address], [facility] WBC (Bld) [#/Vol] 5.29 10*3/uL Normal 4.00-10.60 The [facility] Comment on above: Order Comment: No: D o not add to previous draw Performed By: #### 0 0071, 52905, 61732, 60128, 71426, 93002 #### [facility] [address] COMP METABOLIC PANELon 03-10 Albumin [Mass/Vol] 2.6 g/dL Low 3.5-5.7 [facility] Comment on above: Performed By: #### 0 0071, 00775, 44640, 33046, 89636, 11800 #### [facility] [address] [facility] [address] ALKALINE PHOSPH 45 IU/L Normal 34-104 [facility] Comment on above: Performed By: #### 0 0071, 49244, 33842, 41943, 84251, 63667 #### [facility] [address] ALT [Catalytic activity/Vol] 6 U/L Low 7-52 [facility] Comment on above: Performed By: #### 0 0071, 20955, 49976, 61740, 46262, 71397 #### [facility] [address] [place] [address], [place] AST [Catalytic activity/Vol] 15 U/L Normal 13-39 [facility] Comment on above: Performed By: #### 0 0071, 53679, 03781, 49238, 29917, 01661 #### [facility] [address] [place] [address], [place] Calcium [Mass/Vol] 7.0 mg/dL Low 8.6-10.3 [facility] Comment on above: Performed By: #### 0 0071, 09077, 87323, 54467, 85978, 59183 #### [facility] [address] [place] [address], [place] Chloride [Moles/Vol] 110 mmol/L High 98-107 [facility] Comment on above: Performed By: #### 0 0071, 97785, 86767, 57161, 97960, 64196 #### [facility] [address] [place] [address], [place] CO2 [Moles/Vol] 24 mmol/L Normal 21-31 [facility] Comment on above: Performed By: #### 0 0071, 19625, 51957, 31888, 49797, 95932 #### [facility] [address] [place] [address], [place] Creatinine [Mass/Vol] 0.50 mg/dL Low 0.60-1.20 [facility] Comment on above: Performed By: #### 0 0071, 04641, 81448, 93502, 22741, 70776 #### [facility] [address] [place] [address], [place] Glucose [Mass/Vol] 101 mg/dL High 70-100 [facility] Comment on above: Performed By: #### 0 0071, 98182, 25197, 35068, 74031, 55796 #### [facility] [address] [place] [address], [facility] Potassium [Moles/Vol] 3.4 mmol/L Low 3.5-5.1 [facility] Comment on above: Performed By: #### 0 0071, 81663, 77977, 76884, 77292, 22795 #### [facility] [address] [place] [address], [facility] Protein [Mass/Vol] 4.6 g/dL Low 6.0-8.3 [facility] Comment on above: Performed By: #### 0 0071, 91474, 10211, 88386, 14812, 21438 #### [facility] [address] [place] [address], [facility] Sodium [Moles/Vol] 139 mmol/L Normal 136-145 [facility] Comment on above: Performed By: #### 0 0071, 92056, 96834, 56260, 84744, 43407 #### [facility] [address] [place] [address], [facility] Bilirubin [Mass/Vol] 0.3 mg/dL Normal 0.3-1.0 [facility] Comment on above: Performed By: #### 0 0071, 46001, 41200, 79659, 61861, 40336 #### [facility] [address] [place] [id number], [facility] Order Comment: No: D o not add to previous draw GFR/1.73 sq M predicted among blacks MDRD (S/P/Bld) [Vol rate/Area] mL/min/{1.73_m2} Normal >60 [facility] Comment on above: Result Comment: Calc ulation may not be valid for patients over 70 years Performed By: #### 0 0071, 72408, 54709, 37472, 58633, 41105 #### [facility] [address] Order Comment: No: D o not add to previous draw GFR/1.73 sq M predicted among non-blacks MDRD (S/P/Bld) [Vol rate/Area] mL/min/{1.73_m2} Normal >60 [facility] Comment on above: Result Comment: Calc ulation may not be valid for patients over 70 years Performed By: #### 0 0071, 94367, 49109, 90319, 98735, 96473 #### [facility] [address] [place], [place] [address] [place] [address] Order Comment: No: D o not add to previous draw Urea nitrogen [Mass/Vol] 7 mg/dL Normal 7-25 [facility] Comment on above: Performed By: #### 0 0071, 12965, 07458, 10201, 13428, 14056 #### [facility] [address] [facility] [address] Order Comment: No: D o not add to previous draw CPKon 03-10-2020 CK [Catalytic activity/Vol] 52 U/L Normal 30-223 [facility] Comment on above: Order Comment: No: D o not add to previous draw Performed By: #### 0 0071, 52815, 02350, 46599, 05999, 98981 #### [facility] [address] [facility] LOWER EXTREMITY WO CONTRA ST LEFTon 03-10-2020 CT LOWER EXTREMITY WO CONTRAST LEFT [facility] Department of Radiology [address] [place] [address] Patient Name: SHWETA GALLEGOS : 1940 Sex: F Age: Race: White Pt. Location: [facility] Patient Status: I Ordered Date: 03/09/2020 9:10:00 PM Completed Date: 03/10/2020 03:51 AM Requesting Provider: CJ JAIN Attending Provider: SHYLA DURHAM Report Copy To: Signs & Symptoms: Redness/Swelling (specify) History: See Comments Comments: Fractures Exam: CT LOWER EXTREMITY WO CONTRAST LEFT CT LOWER EXTREMITY WO CONTRAST LEFT 03/10/2020 3:51 AM CLINICAL INDICATIONS: Redness/Swelling (specify) TECHNOLOGIST COMMENTS: pt. fell yesterday, pt. c/o pain and swelling of L knee, hx. L knee surgery, rule out fracture. QUESTION FOR THE RADIOLOGIST: Fractures PROTOCOL: Axial CT images of the extremity were obtained without IV contrast. TECHNIQUE: Multidetector CT axial slices of the left knee without IV contrast. Multiplanar reformats were performed and viewed on a separate workstation and reviewed to further define anatomy and possible pathology. All CT scans at this facility use dose modulation, iterative reconstruction, and/or weight based dosing when appropriate to reduce radiation dose to as low as reasonably achievable COMPARISON: None. FINDINGS: No acute fracture or malalignment. Status post left knee arthroplasty. No evidence of hardware loosening. 13.7 x 7.4 x 3.1 cm soft tissue hematoma overlying the left knee. No definite effusion, difficult to assess due to hardware artifact. IMPRESSION: * No acute osseous abnormality or acute hardware complication. * Large soft tissue hematoma overlying the knee. Approved by:Jamshid Saavedra03/10/2020 4:05 AM. I, Brennon Gabriel,have reviewed the images and reports Electronically signed: Brennon Gabriel. Transcribed by: [email or web address], User Resident: JAMSHID BAILEY Electronically Signed by: BRENNON GABRIEL @ 03/10/2020 04:12 AM I personally read this/these film(s) with this resident Normal [facility] Comment on above: Order Comment: No: D o not add to previous draw D DIMER TESTon 03-10-2020 D-DIMER TEST 1.07 mcg/mL FEU High 0.27-0.49 [facility] Comment on above: Order Comment: No: D o not add to previous draw Result Comment: D-Di salvador values of less than 0.50 ug/ml (FEU) are considered to be a negative predictor of thrombosis. However, the D-Dimer result should be used in conjunction with pretest probability and should not be used alone to diagnose a thrombotic event. Performed By: #### 0 0071, 02006, 73991, 41001, 37130, 97769 #### [facility] [address] [place] [address], [facility] FERRITINon 03-10-2020 Ferritin [Mass/Vol] 57 ng/mL Normal 11-307 [facility] Comment on above: Order Comment: No: D o not add to previous draw Performed By: #### 0 0071, 39222, 46399, 93418, 93595, 91257 #### [facility] [address] [place] [address], [facility] LDH BLOODon 03-10-2020 LDH 207 Units/L Normal 140-271 [facility] Comment on above: Order Comment: No: D o not add to previous draw Performed By: #### 0 0071, 86478, 73353, 54711, 34447, 53127 #### [facility] [address] [place] [address], [facility] LIVER BATTERYon 03-10-2020 Albumin [Mass/Vol] 3.0 g/dL Low 3.5-5.7 [facility] Comment on above: Order Comment: No: D o not add to previous draw Performed By: #### 0 0071, 89022, 91560, 89489, 01020, 28644 #### [facility] [address] [place] [address], [facility] ALKALINE PHOSPH 54 IU/L Normal 34-104 [facility] Comment on above: Order Comment: No: D o not add to previous draw Performed By: #### 0 0071, 77393, 43187, 31951, 25591, 04870 #### [facility] [address] [place] [address], [facility] ALT [Catalytic activity/Vol] 8 U/L Normal 7-52 [facility] Comment on above: Order Comment: No: D o not add to previous draw Performed By: #### 0 0071, 57494, 54628, 35666, 80526, 42061 #### [facility] [address] [place] [address], [facility] AST [Catalytic activity/Vol] 23 U/L Normal 13-39 [facility] Comment on above: Order Comment: No: D o not add to previous draw Performed By: #### 0 0071, 43787, 50404, 85947, 30307, 21228 #### [facility] [address] [place] [address], [facility] Bilirubin.direct [Mass/Vol] 0.0 mg/dL Normal 0.0-0.2 [facility] Comment on above: Order Comment: No: D o not add to previous draw Performed By: #### 0 0071, 66502, 58675, 64705, 36530, 86926 #### [facility] [address] [place] [address], [facility] Protein [Mass/Vol] 5.4 g/dL Low 6.0-8.3 [facility] Comment on above: Order Comment: No: D o not add to previous draw Performed By: #### 0 0071, 59406, 79580, 28533, 45072, 44499 #### [facility] [address] [place] [address], [place] MAGNESIUM BLOODon 03-10-2020 Magnesium [Mass/Vol] 1.9 mg/dL Normal 1.9-2.7 [facility] Comment on above: Order Comment: No: D o not add to previous draw Performed By: #### 0 0071, 78884, 73101, 80447, 33670, 82188 #### [address] PORTABLE CHEST 1 VIEWon 02-20 PORTABLE CHEST 1 VIEW [facility] Department of Radiology [address] [place] [id number] Patient Name: SHWETA GALLEGOS : 1940 Sex: F Age: Race: White Pt. Location: [facility] Patient Status: I Ordered Date: 03/09/2020 9:50:00 PM Completed Date: 03/09/2020 10:31 PM Requesting Provider: VERONICA NATH Attending Provider: SHYLA DURHAM Report Copy To: Signs & Symptoms: O2 Desaturation History: Comments: Evaluate for Cardiomegaly, ed bnp Exam: PORTABLE CHEST 1 VIEW PORTABLE CHEST 1 VIEW 03/09/2020 10:31 PM CLINICAL INDICATIONS: O2 Desaturation TECHNOLOGIST COMMENTS: left knee pain and swelling. HX of COVID QUESTION FOR THE RADIOLOGIST: Evaluate for Cardiomegaly, ed bnp PROTOCOL: AP(PA) view was obtained. COMPARISON: None FINDINGS: There is some patchy airspace density medial right lower lobe and right mid lung and in the left lower lobe. Findings consistent with subtle areas of pneumonia could be seen with Covid 19. No effusion. Heart and mediastinum unremarkable hilar regions symmetric. Degenerative changes in the shoulders IMPRESSION: patchy airspace density medial right lower lobe and right mid lung and in the left lower lobe. Findings consistent with subtle areas of pneumonia could be seen with Covid 19. Electronically signed: Luisa Blum. Transcribed by: [email or web address], User Resident: Electronically Signed by: LUISA BLUM @ 03/10/2020 09:41 AM Normal [facility] Comment on above: Order Comment: No: D o not add to previous draw PROTHROMBIN TIMEon 0 INR Coag (PPP) [Relative time] 1.05 {INR} Normal 0.91-1.16 [facility] Comment on above: Result Comment: ACCC P RECOMMENDED INR FOR WARFARIN THERAPY -------- ------- CONDITION INR PROPHYLAXIS OF VENOUS THROMBOSIS 2-3 (HIGH-RISK SURGERY) TREATMENT OF VENOUS THROMBOSIS 2-3 TREATMENT OF PULMONARY EMBOLISM 2-3 PREVENTION OF SYSTEMIC EMBOLISM: 2-3 ACUTE MYOCARDIAL INFARCTION TISSUE HEART VALVES VALVULAR HEART DISEASE ATRIAL FIBRILLATION RECURRENT SYSTEMIC EMBOLISM MECHANICAL HEART VALVE 2.5-3.5 FROM: ORAL ANTICOAGULANTS. MECHANISM OF ACTION, CLINICAL EFFECTIVENESS, AND OPTIMAL THERAPEUTIC RANGE. CHEST 1995;108:231S-246S. Performed By: #### 0 0071, 91417, 66424, 16144, 09345, 83294 #### [facility] [address] PT Coag (PPP) [Time] 13.7 s Normal 12.3-14.8 [facility] Comment on above: Result Comment: ALL RESULTS MUST BE INTERPRETED WITH RESPECT TO BLOOD DRAWING ARTIFACT OR DILUTION ERROR OF ANTICOAGULANT AT THE TIME OF SAMPLING. Performed By: #### 0 0071, 63891, 02082, 22305, 95518, 68785 #### [facility] [address] [place] [address], [facility] SEDIMENTATION RATEon 020 SED RATE 14 mm/hr Normal 0-20 [facility] Comment on above: Performed By: #### 0 0071, 63461, 43961, 52594, 48132, 96570 #### [facility] [address] TROPONIN-Ion 03-10-2020 Troponin I.cardiac [Mass/Vol] 0.01 ng/mL Normal 0.00-0.04 [facility] Comment on above: Result Comment: REFE RENCE RANGES: 0.00 - 0.04 ng/ml NORMAL 0.05 - 0.50 ng/ml INDETERMINATE > 0.50 ng/ml CONSISTENT WITH AN M.I. Performed By: #### 0 0071, 77222, 63603, 75564, 58176, 54142 #### [facility] [address] Vital Signs Date Time Vital Sign Value Performing Clinician Facility 08-25-2023 11:260400 Body height 160.02 cm [facility] 08-25-2023 11:260400 Body temperature 97.1 [degF] [facility] 08-25-2023 11:26-0400 Diastolic blood pressure 71 mm[Hg] [facility] 08-25-2023 11:26-0400 Heart rate 70 /min [facility] 08-25-2023 11:26-0400 Respiratory rate 18 /min [facility] 08-25-2023 11:26-0400 SaO2% (BldA) [Mass fraction] 97 % [facility] 08-25-2023 11:26-0400 Systolic blood pressure 126 mm[Hg] [facility] 10-09-2022 11:25-0400 Body height 160.02 cm Diana Gil Other [employer] [facility] Other 10-09-2022 11:25-0400 Body mass index (BMI) [Ratio] 35.85 kg/m2 Diana Gil Other [facility] Other 10-09-2022 11:25-0400 Body temperature 97.8 [degF] Diana Gil Other [facility] Other 10-09-2022 11:25-0400 Body weight 91.81 kg Diana Gil Other [facility] Other 10-09-2022 11:25-0400 Diastolic blood pressure 68 mm[Hg] Diana Gil Other [facility] Other 10-09-2022 11:25-0400 Respiratory rate 18 /min Diana Gil Other [facility] Other 10-09-2022 11:25-0400 SaO2% (BldA) [Mass fraction] 96 % Diana Gil Other [facility] Other 10-09-2022 11:25-0400 Systolic blood pressure 143 mm[Hg] Diana Gil Other [facility] Other 05-03-2020 10:24-0500 BMI (Body Mass Index) 35.4 kg/m2 [facility] 05-03-2020 10:24-0500 Body weight 90.71 kg [facility] 05-03-2020 10:24-0500 Height 160.02 cm [facility] 05-03-2020 09:47-0500 Body Temperature 97.7 [degF] [facility] 05-03-2020 09:47-0500 BP Diastolic 72 mm[Hg] [facility] 05-03-2020 09:47-0500 BP Systolic 108 mm[Hg] [facility] 05-03-2020 09:47-0500 Pulse (Heart Rate) 68 /min Cjganga Rodriguez [facility] 05-03-2020 09:47-0500 Respiratory Rate 18 /min [facility] 04-15-2020 08:52-0500 Body Temperature 97.4 [degF] [facility] 04-15-2020 08:52-0500 BP Diastolic 85 mm[Hg] [facility] 04-15-2020 08:52-0500 BP Systolic 149 mm[Hg] [facility] 04-15-2020 08:52-0500 Pulse (Heart Rate) 68 /min [facility] 04-15-2020 08:52-0500 Pulse Oximetry 98 % [facility] 04-15-2020 08:52-0500 Respiratory Rate 18 /min [facility] 04-15-2020 06:00-0500 Body weight 88.6 kg [facility] 04-14-2020 14:06-0500 Height 157.48 cm [facility] 04-13-2020 19:17-0500 BMI (Body Mass Index) 35.4 kg/m2 [facility] Encounters Encounter Date Encounter Type Care Provider Facility Start: 02-13-2024 End: 02-13-2024 ambulatory Mayte Stringer Facility:[facility] Start: 02-13-2024 End: 02-13-2024 Patient encounter procedure Mayte Stringer [facility] Start: 12-31-2023 End: 12-31-2023 ambulatory MAEGAN KESSLER Not Available Start: 10-01-2023 End: 10-01-2023 ambulatory CJ RODRIGUEZ Not Available Start: 08-25-2023 End: 08-25-2023 ambulatory [facility] Work Phone: Start: 08-25-2023 End: 08-25-2023 Patient encounter procedure [facility] Work Phone: Start: 06-04-2023 Chart abstracting Salena hatfield MD Work Phone: [facility] Start: 04-25-2023 End: 04-25-2023 ambulatory BARON Chacon GUERA Not Available Start: 03-28-2023 Patient encounter procedure Salena Enriquez MD Work Phone: [facility] Work Phone: Start: 03-28-2023 End: 03-28-2023 ambulatory CJ RODRIGUEZ Not Available Start: 10-09-2022 End: 10-09-2022 ambulatory Diana Gil Other [employer] Other Start: 10-09-2022 Office outpatient vi sit 25 minutes Diana Gil [facility] Start: 08-08-2022 End: 08-08-2022 ambulatory Cj Rodriguez Facility:[facility] Start: 08-08-2022 End: 08-08-2022 ambulatory DO Cj Rodriguez Work Phone: [facility] Work Phone: Start: 08-08-2022 End: 08-08-2022 Patient encounter procedure DO Cj Rodriguez Work Phone: [facility] [address] Work Phone: Start: 12-17-[address] CJ RODRIGUEZ Facil ity:[facility] Start: 04-23-2021 End: 05-19-[address] CJ RODRIGUEZ Facility:[facility] Start: 02-10-2021 End: 04-21-[address] CJ RODRIGUEZ Facility:[facility] Start: 05-24-2020 End: 05-24-2020 Patient encounter procedure Cj Rodriguez -Pre-Surgical Testing Start: 05-03-2020 Registered Recurring Cj Rodriguez -Wound Care [facility] Start: 04-13-2020 End: 04-15-2020 Evaluation and management of inpatient Cj Rodriguez -[facility] Start: 03-10-2020 End: 03-15-2020 Patient encounter procedure CONNOR WOLFF Facility:[facility] Procedures Date Procedure Procedure Detail Performing Clinician Start: 10-16-2022 History of operative procedure on knee History of left knee replacement Salena Enriquez MD Work Phone: Start: 08-08-2022 CT of head without contrast DO Cj Rodriguez Work Phone: Start: 04-13-2020 Blood culture for bacteria, including anaerobic screen Cj Rodriguez Start: 04-13-2020 SARS Antigen (LFIA) Cj Rodriguez Start: 04-13-2020 Radiologic examination of knee Cj Rodriguez Start: 03-07-2015 left total knee arthroplasty [employer] Bilateral cataracts (disorder) Mayte Orzech Cholecystectomy [employer] Decompression of med torin nerve [facility] [employer] Herniation of rectum into vagina (disorder) Mayte Orzech History of bypass of stomach Mayte [employer] History of tonsillectomy [facility] [employer] [employer] History of total hysterectomy Mayte [employer] Screening for malign ant neoplasm of colon Diana Gil Other Plan of Treatment Date Care Activity Detail Author Start: 03-28-2024 Medicare Annual Well ness (AWV) Medicare Annual Wellness (AWV) [facility] Start: 10-01-2023 End: 10-01-2023 Patient encounter procedure 10/01/2023 1:45 PM EDT Office Visit [facility] [address] [place] [id number] Cj Rodriguez DO [address] [place] [address] [facility] Start: 12-21-2022 Influenza vaccination Influenza Vacc ine (#1) [facility] Patient referral [facility] Immunizations Immunization Date Immunization Notes Care Provider [facility] 12-21-2021 influenza virus vacc ine, unspecified formulation Salena Enriquez MD Work Phone: [facility] 04-26-2021 SARS-CoV-2 (COVID-19 ) mRNA-1273 vaccine Mayte Orzech [facility] 03-08-2021 influenza virus vacc ine, unspecified formulation Mayte Orzech [facility] 06-21-2020 SARS-CoV-2 (COVID-19 ) mRNA-1273 vaccine Mayte Orzech [facility] 05-24-2020 SARS-CoV-2 (COVID-19 ) mRNA-1273 vaccine Mayte Orzech [facility] 12-06-2019 influenza virus vacc ine, unspecified formulation Mayte Orzech [facility] 12-06-2019 pneumococcal conjuga te vaccine, 13 valent Salena Enriquez MD Work Phone: [facility] 01-08-2019 influenza virus vacc ine, unspecified formulation Mayte Orzech [facility] 02-08-2018 influenza virus vacc ine, unspecified formulation Mayte Orzech [facility] 02-07-2017 influenza virus vacc ine, unspecified formulation Mayte Orzech [facility] 01-04-2016 influenza virus vacc ine, unspecified formulation Mayte Stringer [facility] 02-24-2015 pneumococcal conjuga te vaccine, 13 urvashi Enriquez MD Work Phone: [facility] 04-22-2012 pneumococcal polysaccharide vaccine, 23 valkeyur Enriquez MD Work Phone: [facility] 10-25-2010 zoster vaccine, live Salena Enriquez MD Work Phone: [facility] Healthcare Payers Date Payer Category Payer Unknown AARP AARP [id number] 2022-Present [address] [place] [address] [id number] 2015 Private Health Insurance [id number] 2003 Medicare MEDICARE MEDICAR E PART B [id number] 2003-Present [address] [address] [place] [address] Medicare [id number] 1959 Medicare [id number] 1959 Self-pay [id number] 1959 Unknown [id number] 1940 Unknown [id number]. 647 1940 Unknown [id number] [id number]. 593 1940 Unknown [id number] [id number]. 593 1940 Unknown [id number] 2.16.840.1.915838.3.579.2. 593 1940 Unknown [id number] [id number]. 1259 1940 Unknown [id number] 2.16.840.1.423644.3.579.2. 9 1940 Unknown [id number] 2.16.840.1.283413.3.579.2. 9 1940 Unknown [id number] 2.16.840.1.581350.3.579.2. 1258 1940 Unknown [id number] 2.16.840.1.377472.3.579.2. 1258 1940 Unknown [id number] [id number]. 727 Unknown [id number]. 531 Social History Date Type Detail Facility Start: 05-24-2020 End: 08-25-2023 Tobacco smoking status [facility] Ex-smoker (finding) [facility] Start: 1940 Sex Assigned At Female F [facility] Start: 03-28-2023 Sex Assigned At N [facility] Other End: 04-22-2019 History of tobacco use Current smoker [facility] End: 04-22-2019 History of tobacco use Cigarette Smoker [facility] History of tobacco use Passive smoker [facility] Start: 03-28-2023 Tobacco use and exposure Smokeless tobacco non-user [facility] Start: 03-28-2023 Alcohol intake Lifetime non-d doris (finding) [facility] Start: 03-28-2023 History of Social function [facility] How often to you hav e a drink containing alcohol? Monthly or less [facility] How many standard drinks containing alcohol do you have on a typical day? 1 or 2 [facility] How often do you hav e 6 or more drinks on 1 occasion? Less than monthly [facility] Start: 12-10-2022 Alcohol Comment caffeine intak e: 3-4 cups of coffee/ soda per day [facility] Start: 1940 Sex Assigned At Not on file [facility] Tobacco smoking status [facility] Goals Date Patient Goal Desired Activity /State Functional Status Date Assessment Result Facility 04-15-2020 Functional status Patient at Baseline [facility] Mental Status Date Assessment Result Facility 04-15-2020 Cognitive function Cognitive Sta tus Patient at Baseline [facility] Hospital Discharge instructions 02-10-2024 Note Date & Type Note Facility 02-10-2024 Hospital Discharg e instructions Follow Up Care 02/10/2024 12:11:26 With:FINESSE Stringer APRN, Mayte Zheng, MALU, URL Address: When: Unknown [facility] [place] Evaluation note 10-09-2022 Note Date & Type Note Facility 10-09-2022 Evaluation note Encounter Date Diagnosis Assessment Notes Sep, Lower respiratory infection (ICD-10 - J22) Discussed diagnosis with patient and daughter in detail. Advised patient that cough may linger for 3 weeks. Will treat today with antibiotic. Reviewed allergies and recent antibiotic use. Advised to take medications as prescribed, reviewed side effects of steroid, take with food and plenty of water, finish entire course. Encouraged supportive care as directed, push fluids and rest, may use Tylenol as needed for fever/discomfor t, cool mist humidifier. Use Rx of Teslouisa Perles as directed. Patient to follow up with PCP in 2-3 days. Immediate eval if SOB, difficulty breathing, chest pain, dizziness, or other concerning symptoms. Patient verbalizes understanding and is agreeable to treatment plan [facility] Other Evaluation + Plan note Note Date & Type Note Facility Evaluation + Plan note No data available for this section [facility] [place] Evaluation note Note Date & Type Note Facility Evaluation note No assessment information availa ble [facility] Work Phone: History general Narrative - Reported Note Date & Type Note Facility History general Narrative - Reported Type Medical History dementia Medical History neuropathy Surgical History tonsillectomy Surgical History hysterectomy Hospitalization History see above [facility] Other Progress note Note Date & Type Note Facility Progress note No data available for this section [facility] [place] Summary Purpose Family History No Family History Records Found Relationship Condition Age at Onset Recorded Date/T shane sister Malignant neoplasm Unknown father Heart problem Unknown Relationship Condition Age at Onset Recorded Date/T shane sister Malignant neoplasm Unknown father Heart problem Unknown father Unknown Not Specified Unknown Advance Directives No Advanced Directives Records Found Advance Directive Response Recorded Date/ Time Advance Directives No September 11 2:41pm Advance Directive Response Recorded Date/ Time Advance Directives No September 11 3:41pm Documents on File Type Date Recorded Patient Visiting Teacher Expl anation Advance Directives and Living Will 05/03/2020 2007-12-16 LW & POA Latest Code Status on File Code Status Date Activated Date Inactivated Comments Full Code 03/28/2023 2:55 PM Hospital Course Note MR#: [id number] [facility] Pt. Name: Shweta Gallegos Admitted: 03/09/2020 Discharged: 03/15/2020 Date of : 1940 Physician: Connor Wolff MD DISCHARGE SUMMARY PRINCIPAL DISCHARGE DIAGNOSIS: Left patellar hematoma. SECONDARY DISCHARGE DIAGNOSES: 1. Mechanical fall. 2. Asymptomatic COVID-19 positive. 3. History of prior total knee arthroplasty. 4. Depression and anxiety. HOSPITAL COURSE: The patient is an 79-year-old woman, who sustained a mechanical fall and hit her left knee on a wooden floor resulting in hematoma. The patient initially presented to [facility] and was transferred to [facility] for evaluation by Orthopedics. The patient was evaluated by Orthopedics, had a CT scan of her leg, which showed no fractures and no complications of her underlying total knee arthroplasty prosthetic. The patient was treated with symptomatic control for large hematoma. The patient was found to be COVID-19 positive, though was essentially asymptomatic. She requ (more content not included)... Chief Complaint and Reason for Visit Chief Complaint Left knee pain/fall@ home Open Wound/ L knee/ attend-dementia Knee Wound Reason for Visit Cellulitis Left leg cellulitis Open wound Left leg cellulitis Traumatic wound Chief Complaint Foot laceration Assessments Diagnosis Onset Date Resolution Status Cellulitis acute Left leg cellulitis acute Open wound acute Traumatic wound acute Additional Source Comments INFORMATION SOURCE (unrecogn ized section and content) DATE CREATED AUTHOR 04/07/2020 [facility] DATE CREATED AUTHOR AUTHOR'S ORGANIZ ATION 12/17/2021 [facility] DATE CREATED AUTHOR AUTHOR'S ORGANIZ ATION 09/04/2022 [facility] DATE CREATED AUTHOR AUTHOR'S ORGANIZ ATION 01/02/2024 [facility] EPIC DATE CREATED AUTHOR AUTHOR'S ORGANIZ ATION 02/15/2024 Ryan Walden [facility] Care Teams (unrecognized sec tion and content) Team Status: Active Member Role Status Dates jC Rodriguez DO Primary Care Provider Active Team Status: Inactive Member Role Status Dates Cj Rodriguez DO Primary Care Provider, Attending Mimi frye Active Occupational Therapy Teacher Relationship Specialty Start Date End Date Cj Rodriguez DO [address] [address] PCP - General Internal Medicine 09/13/22 Cj Rodriguez DO [address] [address] PCP - ACO Reach 09/13/22 Rivas Harper MD [address] [place] [id number] Referring Physician Psychiatry 12/27/22 Team Status: Inactive Member Role Status Dates Cj Rodriguez DO Primary Care Provider Active Start: August 25, 2023 End: August 25, 2023 Cristina Mckeon APRN Attending Provider Active S tart: August 25, 2023 End: August 25, 2023 Goals (unrecognized section and content) Goals may be documented in a n alternate sectionNo InformationGoals may be documented in an alternate section No data available for this section REASON FOR VISIT (unrecogniz ed section and content) COUGH, EAR PAIN FOR RECORDS PERTAINING TO PATIENTS WHO ARE OR HAVE BEEN ENROLLED IN A CHEMICAL DEPENDENCY/SUBSTANCEABUSE PROGRAM, SOME INFORMATION MAY BE OMITTED. This clinical summary was aggregated from multiple sources. Caution should be exercised in using it in the provision of clinical care. This summary normalizes information from multiple sources, and as a consequence, information in this document may materially change the coding, format and clinical context of patient data. In addition, data may be omitted in some cases. CLINICAL DECISIONS SHOULD BE BASED ON THE PRIMARY CLINICAL RECORDS. [facility] provides no warranty or guarantee of the accuracy or completeness of information in this document.
[2024-03-06 06:43] LABS: Basophils Percent Auto 0.4 % (0.2-2.0); Eosinophils Absolute Auto 0.2 10^3/uL (0.0-0.7); Eosinophils Percent Auto 3.6 % (0.9-7.0); Hematocrit 36.7 % (36.0-48.0); Immature Granulocytes Abs Auto 0.02 10^3/uL (0.00-0.03); Immature Granulocytes Pct Auto 0.3 % (0.0-0.5); Lymphocytes Absolute Auto 2.9 10^3/uL (1.2-3.8); Lymphocytes Percent Auto 42.9 % (20.5-60.0); Mean Corpuscular HGB Conc 32.7 g/dL (29.9-35.2); Mean Corpuscular Volume 91.8 fL (81.0-99.0); Mean Platelet Volume 9.2 fL (9.5-13.5); Monocytes Absolute Auto 0.8 10^3/uL (0.3-0.8); Monocytes Percent Auto 12.4 % (1.7-12.0); Neutrophils Absolute Auto 2.7 10^3/uL (1.4-6.5); Neutrophils Percent Auto 40.4 % (43.0-75.0); Platelet Count 286 10^3/uL (150-450); White Blood Count 6.7 10^3/uL (4.0-11.0)
[2024-03-06 06:57] LABS: Anion Gap 12.5; BUN Creatinine Ratio 13.8; Carbon Dioxide 28.5 mmol/L (21.0-32.0); Chloride 107 mmol/L (98-107); Estimated GFR (African America >60 (>=60 mL/min/1.73m^2); Estimated GFR (Non-African Ame >60 (>=60 mL/min/1.73m^2); Glucose 97 mg/dL (74-106); Sodium 144 mmol/L (136-145); Troponin I High Sensitivity 12.4 pg/mL (4.0-51.3)
--- NOTE | 2024-03-06 07:18 | ED.GENADUL1 ---
HPI HPI - General Adult General Chief complaint: Chest Pain Stated complaint: CHEST PAIN Time Seen by Provider: 03/06/24 05:53 Mode of arrival: ambulance Limitations comment: DEMENTIA A&O X 1 History of Present Illness HPI narrative: Patient is a 83-year-old female who is presenting to the ER today with chief complaint of chest tightness with radiation into the neck and jaw and feeling like she has a left-sided toothache. This happened at 4:00 this morning. Patient sleeps in bed, her sleeps in a reclining chair in the family room. Patient went out to the reclining chair to tell the of her symptoms, he tried to give her [place] which she did not want. That she about 5:00 the ambulance was called. Patient has no cardiac history. and daughter at bedside. Patient is uncertain if she has ever had a cardiac stress test or echocardiogram, family does not think that she has. She has no lung history of emphysema, COPD. No CHF history. No recent traveling. No abdominal pain, nausea vomiting. No other acute complaints. No recent falls. Patient uses a walker at home, she can use a cane if she goes out in public or to the stores. All systems are negative except as noted/marked. All systems reviewed and otherwise negative. Nurses note and vital signs reviewed and patient is not hypoxic. General: The patient appears well and in no apparent distress. Patient is resting comfortably on cart. Patient is not toxic, lethargic, or listless Skin: Warm, dry, no pallor noted. There is no rash noted. No petechiae, purpura. Head: Normocephalic, atraumatic Eye: Normal conjunctiva, no drainage, EOMI. PERRL Ears, Nose, Mouth, and Throat: oral mucosa is moist. Nares patent. Mouth without vesicles. Cardiovascular: Regular Rate and Rhythm, no murmur, gallop, rub. Patient does have mild to moderate reproducible tenderness palpation to bilateral upper chest wall and over the sternum. Respiratory: Patient is in no distress, no accessory muscle use, lungs are clear to auscultation, no wheezing, rales or rhonchi Back: non-tender, no CVA tenderness bilaterally to percussion. No CT LS midline pain GI: no tenderness to palpation, no masses appreciated. No rebound, guarding, or rigidity noted. No distention. Patient says her abdomen is normal size for her. Musculoskeletal: Patient has full range of motion of all of the extremities, no motor, sensory, or focal neurological deficits Neurological: A&O x4, normal speech Psychiatric: Cooperative Related Data Home Medications ?Medication ?Instructions ?Recorded ?Confirmed aripiprazole 2 mg tablet 2 mg PO QDAY 03/24/23 03/06/24 atorvastatin 20 mg tablet 20 mg PO QDAY 03/24/23 03/06/24 cyanocobalamin (vitamin B-12) 1,000 mcg PO DAILY 03/24/23 03/06/24 1,000 mcg tablet (Vitamin B-12) gabapentin 300 mg capsule 300 mg PO Q8H 03/24/23 03/06/24 memantine 5 mg tablet 5 mg PO QDAY 03/24/23 03/06/24 oxybutynin chloride 5 mg tablet 5 mg PO Q12H 03/24/23 03/06/24 venlafaxine 150 mg 150 mg PO QDAY 03/24/23 03/06/24 capsule,extended release 24 hr venlafaxine 75 mg capsule,extended 75 mg PO QDAY 03/24/23 03/06/24 release 24 hr clobetasol 0.05 % topical ointment 1 applic topical BID 03/06/24 03/06/24 estradiol 0.01% (0.1 mg/gram) 1 appful vaginal DAILY 03/06/24 03/06/24 vaginal cream Allergies Allergy/AdvReac Type Severity Reaction Status Date / Time No Known Drug Allergies Allergy Verified 03/06/24 06:38 Opioid HPI Opioid Management Most Recent Opioid Data: Last Pain Scale 3 03/06/24 06:30 03/06/24 [facility] Medical History (Updated 03/06/24 @ 08:32 by Benoit Martin MD) Tremors of nervous system ?R25.1 - Tremor, unspecified (ICD-10) Depression ?F32.A - Depression, unspecified (ICD-10) Incontinence ?R32 - Unspecified urinary incontinence (ICD-10) High cholesterol ?E78.00 - Pure hypercholesterolemia, unspecified (ICD-10) Dementia ?F03.90 - Unspecified dementia, unspecified severity, without behavioral disturbance, psychotic disturbance, mood disturbance, and anxiety (ICD-10) Surgical History (Updated 03/24/23 @ 15:14 by Marlena Quiroz) Left knee injury ?S89.92XA - Unspecified injury of left lower leg, initial encounter (ICD-10) FH: total abdominal hysterectomy and bilateral salpingo-oophorectomy ?Z84.2 - Family history of other diseases of the genitourinary system (ICD-10) Hx laparoscopic cholecystectomy ?Z90.49 - Acquired absence of other specified parts of digestive tract (ICD-10) Family History (Updated 03/24/23 @ 15:15 by Marlena Quiroz) Father Family history of CHF (congestive heart failure) Family history of COPD (chronic obstructive pulmonary disease) Grandmother Family history of cancer Social History (Updated 03/24/23 @ 15:17 by Marlena Quiroz) Within the past year, how often did you have a drink containing alcohol: monthly or less Smoking status: Former smoker Non-prescribed substance use: denies use Previous occupational history: retired Highest level of school completed/degree received: high school graduate Are you now , , , , never or living with a partner: Little interest or pleasure in doing things: not at all Feeling down, depressed, or hopeless: not at all Feel stressed/tense/nervous/anxious/difficulty sleeping: not at all Do you think of yourself as: straight/heterosexual Gender Identity: female Exam Constitutional Vital Signs, click to edit/add: Last Vital Signs Temp 97.9 F 03/06/24 05:53 Pulse 61 03/06/24 08:16 Resp 19 03/06/24 08:16 BP 127/55 03/06/24 08:16 Pulse Ox 95 03/06/24 08:16 O2 Del Method Room Air 03/06/24 05:53 Course Vital Signs Vital signs: Vital Signs Pulse Rate 60 03/06/24 05:51 Respiratory Rate 16 03/06/24 05:51 Blood Pressure 163/79 H 03/06/24 05:51 Pulse Oximetry 98 03/06/24 05:51 Temperature 97.9 F 03/06/24 05:53 Pulse Rate 61 03/06/24 08:16 Respiratory Rate 19 03/06/24 08:16 Blood Pressure 127/55 03/06/24 08:16 Pulse Oximetry 95 03/06/24 08:16 Oxygen Delivery Method Room Air 03/06/24 05:53 Medical Decision Making MDM Narrative Medical decision making narrative: EKG shows no acute findings, chest x-ray negative. Lab work shows no other acute findings. 0810 patient was seen evaluated by Dr. Pete in the ER. Patient was not having any type of chest pain or tightness when she was seen evaluated by Dr. Pete. Patient and family are uncertain if she has ever had a stress test or echocardiogram. Patient will have further testing done today and outpatient testing is indicated. Patient will be admitted for observation to [facility] patient was given aspirin prophylactically. Lab Data Lab results reviewed: Yes I reviewed the patient's lab results Labs: Lab Results 03/06/24 Range/Units 06:10 WBC 6.7 (4.0-11.0) 10^3/uL RBC 4.00 L (4.20-5.40) 10^6/uL Hgb 12.0 (12.0-16.0) g/dL Hct 36.7 (36.0-48.0) % MCV 91.8 (81.0-99.0) fL MCH 30.0 (26.7-34.0) pg MCHC 32.7 (29.9-35.2) g/dL RDW 14.0 (11.0-15.0) % Plt Count 286 (150-450) 10^3/uL MPV 9.2 L (9.5-13.5) fL Neut % (Auto) 40.4 L (43.0-75.0) % Lymph % (Auto) 42.9 (20.5-60.0) % Overton % (Auto) 12.4 H (1.7-12.0) % Eos % (Auto) 3.6 (0.9-7.0) % Baso % (Auto) 0.4 (0.2-2.0) % Neut # (Auto) 2.7 (1.4-6.5) 10^3/uL Lymph # (Auto) 2.9 (1.2-3.8) 10^3/uL Overton # (Auto) 0.8 (0.3-0.8) 10^3/uL Eos # (Auto) 0.2 (0.0-0.7) 10^3/uL Baso # (Auto) 0.0 (0.0-0.1) 10^3/uL Abs Immat Gran (auto) 0.02 (0.00-0.03) 10^3/uL Imm/Tot Granulo (auto) 0.3 (0.0-0.5) % Sodium 144 (136-145) mmol/L Potassium 4.0 (3.5-5.1) mmol/L Chloride 107 (98-107) mmol/L Carbon Dioxide 28.5 (21.0-32.0) mmol/L Anion Gap 12.5 BUN 11.0 (7.0-18.0) mg/dL Creatinine 0.80 (0.55-1.02) mg/dL Est GFR ( Amer) >60 (>=60 mL/min/1.73m^2) Est GFR (Non-Af Amer) >60 (>=60 mL/min/1.73m^2) BUN/Creatinine Ratio 13.8 Glucose 97 (74-106) mg/dL Calcium 9.0 (8.5-10.1) mg/dL Troponin I High Sens 12.4 (4.0-51.3) pg/mL ECG Data Attestation: I personally reviewed and interpreted this ECG as follows: (EKG interpretation. Normal sinus rhythm at 54 beats a minute. Normal axis deviation. No acute ST elevation, no acute ectopy. QTc of 427.) Discharge Plan Discharge Chief Complaint: Chest Pain Clinical Impression: Chest pain Patient Disposition: Admitted as Observation Time of Disposition Decision: 08:15 Condition: Fair
[2024-03-06] MEDS: ASPIRIN 81 MG TAB.CHEW 162 MG PO (07:19)
--- OUTSIDE RECORDS SUMMARY | 2024-03-06 09:14 | XMS_ITS | CCD ---
Author Organization [facility] Care Team Providers Care Delivery Stock Clerk Name Role Phone CONNOR WOLFF Attending Unavailable CONNOR WOLFF Admitting Unavailable ADY MAYERS Referring Unavailable CJ RODRIGUEZ Primary Care Unavailable Cj Rodriguez Primary Care Provider Talya Bergeron Admit Provider Talya Bergeron Attending Provider [phone] Ladonna Brito Attending Provider Camilo Yo Attending Provider [phone] CJ RODRIGUEZ Primary Care Unavailable MICHAEL, DR CORONA Attending Unavailable MICHAEL, DR CORONA Admitting Unavailable MICHAEL, DR CORONA Admitting Unavailable DR CJ RODRIGUEZ Primary Care Unavailable MICHAEL, DR CORONA Attending Unavailable MICHAEL, DR CORONA Primary Care Unavailable MICHAEL, DR CORONA Attending Unavailable MICHAEL, DR CORONA Admitting Unavailable DO Cj Rodriguez Primary Care Provider [phone] DO Cj Rodriguez Attending Provider Cj Rodriguez Attending Unavailable jC Rodriguez Primary Care Unavailable Cj Rodriguez Admitting Unavailable Diana Gil Unavailable Cj Rodriguez DO Primary Care Provider [phone] Cj Rodriguez DO Unavailable [phone] Rivas Harper MD Unavailable [phone] BARON LYNNE Referring Unavailable CJ RODRIGUEZ Attending Unavailable CJ RODRIGUEZ Attending Unavailable CJ RODRIGUEZ Referring Unavailable MAEGAN KESSLER Attending Unavailable CJ RODRIGUEZ Primary Care Physician Unavail able Mayte Stringer Attending Unavailable Unavailable Unavailable Unavailable Allergies Allergy Classification Reported Allergen(s) Allergy Type Date of Onset Reaction(s) Facility (5 sources) HYDROcodone Drug Allergy 11-07-20 13 Unknown Reaction [facility] Repository (8 sources) Penicillins; Translations: [penicillins] Drug allergy (disorder) 02-27-20 13 Unknown Reaction, swelling at injection site [facility] Repository (3 sources) traZODone; Translations: [traZODone] Drug Allergy 03-09-20 20 [facility] Repository (3 sources) Acetaminophen; Translations: [acetaminophen] Drug Allergy 05-03-19 21 Unknown Reaction [facility] (1 source) HYDROcodone Drug Allergy 05-25-19 [facility] Repository (1 source) Penicillins Drug allergy (disorder) 05-25-19 [facility] Repository (1 source) Substance with penicillin structure and antibacterial mechanism of action (substance) Drug allergy Unknown [facility] [place] Other (1 source) donepezil Drug Allergy 10-17-19 23 [facility] (1 source) HYDROcodone Drug Allergy 10-17-19 23 [facility] (1 source) Lisinopril Allergy to substance 10-17-19 23 [facility] (1 source) oxyCODONE Drug Allergy 07-21-19 08 Rash [facility] (1 source) Penicillins Drug Allergy 10-17-19 23 [facility] (1 source) Acetaminophen / HYDROcodone Drug Allergy 08-25-19 24 Unknown Reaction [facility] Medications Current Medications Medication Drug Class(es) Dates [...] tablet (1 source) Opioid Agonist Start: 03-10-2015 [place] 325 mg-5 mg oral tablet 1 tab(s), Oral, q4hr for pain, 40 tab(s), Refill(s) 1 Start Date: 03/10/15 Status: Ordered [id number] 200 actuat albuterol 0.09 mg/actuat metered dose [...] Active Start: 02-17-2015 take 1 capsule by [facility] at bedtime gabapentin 100 mg Cap 100 [...] hydrochloride 5 mg oral tablet (4 sources) D-mgcfxg-U-aspart[place] te Receptor Antagonist Start: 05-24-2020 End: 02-06-2024 [...] 25, 2023 12:00am take 1 capsule by [facility] every twenty-four hours in the morning venlafaxine XR (Effexor XR) 150 MG 24 hr capsule Take 150 mg by mouth in the morning. 0 Active take 1 tablet by [facility] every twenty-four hours Venlafaxine HCl 100 MG 1 tablet with food Orally Once a day Active Vitamin C 500 MG (1 source) Vitamin C 500 MG as directed Orally Active Vitamin D3 (4 sources) Start: 04-13-2020 take 5000 [IU] by [facility] once daily Vitamin D3 Active 5000 UNITS PO Daily April 13, 2020 12:16pm Start: 04-13-2020 take 5000 [IU] by [facility] once daily Vitamin D3 Active 5000 UNITS PO Daily April 13, 2020 1:00am Start: 02-17-2015 Vitamin D3 2,0 00 International_Unit, Oral, Daily, Refills(s) 0, Other (see comment) Start Date: 02/17/15 Status: Ordered Vitamin D3 [id number] UNIT/GM (1 source) Vitamin D3 95906 00 UNIT/GM as directed Active Zinc (1 [...] (5 sources) Start: 04-13-2020 End: 08-25-2023 take 15513 ug by mouth once daily Biotin Discontinued 17312 MCG PO Daily April 13, 2020 1:00am [...] Chronic 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; 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 Other nervous [...] head/brain wo conon 08-08 CT head/brain wo [facility] [place] [address] CT Scan Report Signed Patient: Shweta Gallegos MR#: [id number] 8 : 1940 Acct:[id number] Age/Sex: 82 / F ADM Date: 08/08/22 Loc: [facility] Room: Type: [facility] Attending Dr: Cj Rodriguez DO Copies to: [...] Delaney Marrero M.D.08/08/2022 12:50 PM Dictation Location: [place] [address] Transcribed By: [facility] 08/08/22 1250 Dictated By: Delaney Marrero MD 08/08/22 1236 Signed By: 08/08/22 1250 Normal [facility] Automated basophil %on 05-24 Basophils/100 WBC (Bld) 0.3 % [facility] Automated basophil counton 0 05-24-2020 Basophils (Bld) [#/Vol] 0.0 10*3/uL 0.0-0.2 [facility] Automated blood lymphocyte c ount (number/volume)on 05-24-2020 Lymphocytes (Bld) [#/Vol] 2.7 10*3/uL 1.00-4.8 [facility] Automated blood lymphocyte c ount as percentage of total leukocyteson 05-24-2020 Lymphocytes/100 WBC (Bld) 37.9 % [facility] Automated blood monocyte cou nton 05-24-2020 Monocytes (Bld) [#/Vol] 0.6 10*3/uL 0.0-0.8 [facility] Automated blood platelet cou nt (count/volume)on 05-24-2020 Platelets (Bld) [#/Vol] 357 10*3/uL 150-450 [facility] Automated blood platelet flo n volume measurementon 05-24-2020 Platelet mean volume (Bld) [Entitic vol] 7.2 fL 6.3-10.7 [facility] Automated eosinophil %on Eosinophils/100 WBC (Bld) 3.5 % [facility] Automated eosinophil counton 05-24-2020 Eosinophils (Bld) [#/Vol] 0.3 10*3/uL 0.0-0.45 [facility] Automated erythrocyte distri bution width ratioon 05-24-2020 Erythrocyte distribution width (RBC) [Ratio] 14.1 % 11.9-15.3 [facility] Automated erythrocyte mean c orpuscular hemoglobin (mass per erythrocyte)on 05-24-2020 MCH (RBC) [Entitic mass] 30.8 pg 24.7-34.3 [facility] Automated erythrocyte mean c orpuscular hemoglobin concentration measurement (mass/volon 05-24-2020 MCHC (RBC) [Mass/Vol] 33.5 g/dL 32.0-35.0 [facility] Automated erythrocyte mean c orpuscular volumeon 05-24-2020 MCV (RBC) [Entitic vol] 91.8 fL 80-100 [facility] Automated monocyte %on 05-24 Monocytes/100 WBC (Bld) 8.0 % [facility] Automated neutrophil %on Neutrophils/100 WBC (Bld) 50.3 % [facility] Blood erythrocytes automated count (number/volume)on 05-24-2020 RBC (Bld) [#/Vol] 4.09 10*6/uL 3.60-5.00 [facility] Blood hemoglobin measurement (mass/volume)on 05-24-2020 Hemoglobin (Bld) [Mass/Vol] 12.6 g/dL 11.8-15.4 [facility] Blood leukocytes automated c ount (number/volume)on 05-24-2020 WBC (Bld) [#/Vol] 7.2 10*3/uL 4.5-11.0 [facility] Blood neutrophil count by au tomated method (number/volume)on 05-24-2020 Neutrophils (Bld) [#/Vol] 3.6 10*3/uL 1.8-7.7 [facility] Body fluid albumin measureme nt (mass/volume)on 05-24-2020 Albumin (Body fld) [Mass/Vol] 3.4 g/dL 3.2-5.5 [facility] COVID-19 Positive/Negativeon 05-24-2020 COVID-19 Positive/Negative Positive Negative [facility] Comment on above: Critical valueresult calledat 2143 on 05/24/20Testing for SARS-CoV-2 by RT-PCRThis test was developed and its performance characteristics determined by [employer] ([employer]) and validated at the [facility]. This test has not been FDA cleared [...] among non-blacks MDRD (S/P/Bld) [Vol rate/Area] mL/min/{1.73_m2} [facility] Hematocrit [Volume Fraction] of Blood by Automated counton 05-24-2020 Hematocrit (Bld) [Volume fraction] 37.5 % 34.0-46.4 [facility] Otheron 05-24-2020 GFR/1.73 sq M.predicted MDRD (S/P/Bld) [Vol rate/Area] mL/min/{1.73_m2} [facility] Comment on above: GFR estimated refere nce range: According to KDOQI guidelines, <60 ml/min/1.73m2 is sufficient to diagnose a patient with chronic kidney disease. Nucleated RBC/100 WBC (Bld) [Ratio] 0.1 % 0-0.5 [facility] Pharmacy Creatinine Clearance (Chem N/A [facility] Coronavirus 2019 PCR Interp N/A [facility] Protein [Mass/volume] in Ser um or Plasmaon 05-24-2020 Protein [Mass/Vol] 6.3 g/dL 6.1-7.9 [facility] Serum globulin measurement b y calculation (mass/volume)on 05-24-2020 Globulin (S) [Mass/Vol] 2.9 g/dL [facility] Serum or plasma alanine rae otransferase measurement without P-5'-P (enzymatic activion 05-24-2020 ALT No additional P-5'-P [Catalytic activity/Vol] 11 U/L 10-60 [facility] Serum or plasma albumin/glob ulin mass ratioon 05-24-2020 Albumin/Globulin [Mass ratio] 1.2 {ratio} [facility] Serum or plasma alkaline brenda sphatase measurement (enzymatic activity/volume)on 05-24-2020 ALP [Catalytic activity/Vol] 78 U/L 32-92 [facility] Serum or plasma aspartate am inotransferase measurement (enzymatic activity/volume)on 05-24-2020 AST [Catalytic activity/Vol] 19 U/L 10-42 [facility] Serum or plasma calcium daniel urement (mass/volume)on 05-24-2020 Calcium [Mass/Vol] 9.3 mg/dL 8.2-10.2 [facility] Serum or plasma chloride flo surement (moles/volume)on 05-24-2020 Chloride [Moles/Vol] 104 mmol/L 95-[address] [facility] Serum or plasma creatinine m easurement with calculation of estimated glomerular filtron 05-24-2020 Creatinine [Mass/Vol] 0.62 mg/dL 0.44-1.03 [facility] Serum or plasma glucose daniel urement (mass/volume)on 05-24-2020 Glucose [Mass/Vol] 113 mg/dL 70-100 [facility] Comment on above: ADA recommended refe rence rangeRandom Glucose Reference Range is dependent on time and content of last meal. Glucose of more than 200 mg/dL in a nonstressed, ambulatory subject supports the diagnosis of Diabetes Mellitus. Serum or plasma potassium me asurement (moles/volume)on 05-24-2020 Potassium [Moles/Vol] 4.3 mmol/L 3.5-5.1 [facility] Serum or plasma sodium measu rement (moles/volume)on 05-24-2020 Sodium [Moles/Vol] 138 mmol/L 136-146 [facility] Serum or plasma total biliru bin measurement (mass/volume)on 05-24-2020 Bilirubin [Mass/Vol] 0.6 mg/dL 0.3-1.[address] [facility] Serum or plasma total carbon dioxide measurement (moles/volume)on 05-24-2020 CO2 [Moles/Vol] 26.2 mmol/L 22.0-30.0 [facility] Serum or plasma urea nitroge n measurement (mass/volume)on 05-24-2020 Urea nitrogen [Mass/Vol] 10 mg/dL 9- [facility] Automated basophil %on 04-14 Basophils/100 WBC (Bld) 0.5 % [facility] Automated basophil counton 1 2019 Basophils (Bld) [#/Vol] 0.0 10*3/uL 0.0-0.2 [facility] Automated blood lymphocyte c ount (number/volume)on 04-14-2020 Lymphocytes (Bld) [#/Vol] 2.1 10*3/uL 1.00-4.8 [facility] Automated blood lymphocyte c ount as percentage of total leukocyteson 04-14-2020 Lymphocytes/100 WBC (Bld) 30.5 % [facility] Automated blood monocyte cou nton 04-14-2020 Monocytes (Bld) [#/Vol] 0.7 10*3/uL 0.0-0.8 [facility] Automated blood platelet cou nt (count/volume)on 04-14-2020 Platelets (Bld) [#/Vol] 307 10*3/uL 150-450 [facility] Automated blood platelet flo n volume measurementon 04-14-2020 Platelet mean volume (Bld) [Entitic vol] 7.4 fL 6.3-10.7 [facility] Automated eosinophil %on Eosinophils/100 WBC (Bld) 4.3 % [facility] Automated eosinophil counton 04-14-2020 Eosinophils (Bld) [#/Vol] 0.3 10*3/uL 0.0-0.45 [facility] Automated erythrocyte distri bution width ratioon 04-14-2020 Erythrocyte distribution width (RBC) [Ratio] 14.5 % 11.9-15.3 [facility] Automated erythrocyte mean c orpuscular hemoglobin (mass per erythrocyte)on 04-14-2020 MCH (RBC) [Entitic mass] 31.1 pg 24.7-34.3 [facility] Automated erythrocyte mean c orpuscular hemoglobin concentration measurement (mass/volon 04-14-2020 MCHC (RBC) [Mass/Vol] 33.3 g/dL 32.0-35.0 [facility] Automated erythrocyte mean c orpuscular volumeon 04-14-2020 MCV (RBC) [Entitic vol] 93.5 fL 80-100 [facility] Automated monocyte %on 04-14 Monocytes/100 WBC (Bld) 9.7 % [facility] Automated neutrophil %on Neutrophils/100 WBC (Bld) 55.0 % [facility] Blood erythrocytes automated count (number/volume)on 04-14-2020 RBC (Bld) [#/Vol] 4.04 10*6/uL 3.60-5.00 [facility] Blood hemoglobin measurement (mass/volume)on 04-14-2020 Hemoglobin (Bld) [Mass/Vol] 12.6 g/dL 11.8-15.4 [facility] Blood leukocytes automated c ount (number/volume)on 04-14-2020 WBC (Bld) [#/Vol] 6.7 10*3/uL 4.5-11.0 [facility] Blood neutrophil count by au tomated method (number/volume)on 04-14-2020 Neutrophils (Bld) [#/Vol] 3.7 10*3/uL 1.8-7.7 [facility] Hematocrit [Volume Fraction] of Blood by Automated counton 04-14-2020 Hematocrit (Bld) [Volume fraction] 37.8 % 34.0-46.4 [facility] Otheron 04-14-2020 Nucleated RBC/100 WBC (Bld) [Ratio] 0.5 % 0-0.5 [facility] Albumin [Mass/volume] in Ser um or Plasmaon 04-13-2020 Albumin [Mass/Vol] 3.3 g/dL 3.2-5.5 [facility] Bacterial blood cultureon Bacteria identified Cx Nom (Bld) NO GROWTH 5 DAYS [facility] COVID-19 SOFIAon 04-13-2020 COVID-19 PRADIP Negative Negative [facility] Comment on above: This is a duplicate test result based off of the Pradip SARS Antigen (DEBBIE) test performed within the Microbiology department. Erythrocyte sedimentation ra te by Photometric methodon 04-13-2020 ESR Photometric method (Bld) [Velocity] 27 mm/hr 0-29 [facility] Estimated glomerular filtrat ion rate (GFR) non- Americanon 04-13-2020 GFR/1.73 sq M predicted among non-blacks MDRD (S/P/Bld) [Vol rate/Area] mL/min/{1.73_m2} [facility] Otheron 04-13-2020 GFR/1.73 sq M.predicted MDRD (S/P/Bld) [Vol rate/Area] mL/min/{1.73_m2} [facility] Comment on above: GFR estimated refere nce range: According to KDOQI guidelines, <60 ml/min/1.73m2 is sufficient to diagnose a patient with chronic kidney disease. Pharmacy Creatinine Clearance (Chem 59.47 [facility] SARS Antigen (LFIA) [facility] Protein [Mass/volume] in Ser um or Plasmaon 04-13-2020 Protein [Mass/Vol] 6.4 g/dL 6.1-7.9 [facility] Serum globulin measurement b y calculation (mass/volume)on 04-13-2020 Globulin (S) [Mass/Vol] 3.1 g/dL [facility] Serum or plasma C reactive p rotein measurement (mass/volume)on 04-13-2020 CRP [Mass/Vol] < 0.5 mg/dL 0.0-1.0 [facility] Serum or plasma alanine rae otransferase measurement without P-5'-P (enzymatic activion 04-13-2020 ALT No additional P-5'-P [Catalytic activity/Vol] 8 U/L 10-60 [facility] Serum or plasma albumin/glob ulin mass ratioon 04-13-2020 Albumin/Globulin [Mass ratio] 1.1 {ratio} [facility] Serum or plasma alkaline brenda sphatase measurement (enzymatic activity/volume)on 04-13-2020 ALP [Catalytic activity/Vol] 71 U/L 32-92 [facility] Serum or plasma aspartate am inotransferase measurement (enzymatic activity/volume)on 04-13-2020 AST [Catalytic activity/Vol] 23 U/L 10-42 [facility] Serum or plasma calcium daniel urement (mass/volume)on 04-13-2020 Calcium [Mass/Vol] 8.9 mg/dL 8.2-10.2 [facility] Serum or plasma chloride flo surement (moles/volume)on 04-13-2020 Chloride [Moles/Vol] 102 mmol/L 95-[address] [facility] Serum or plasma creatinine m easurement with calculation of estimated glomerular filtron 04-13-2020 Creatinine [Mass/Vol] 0.61 mg/dL 0.44-1.03 [facility] Serum or plasma glucose daniel urement (mass/volume)on 04-13-2020 Glucose [Mass/Vol] 112 mg/dL 70-100 [facility] Comment on above: ADA recommended refe rence rangeRandom Glucose Reference Range is dependent on time and content of last meal. Glucose of more than 200 mg/dL in a nonstressed, ambulatory subject supports the diagnosis of Diabetes Mellitus. Serum or plasma potassium me asurement (moles/volume)on 04-13-2020 Potassium [Moles/Vol] 3.8 mmol/L 3.5-5.1 [facility] Serum or plasma sodium measu rement (moles/volume)on 04-13-2020 Sodium [Moles/Vol] 137 mmol/L 136-146 [facility] Serum or plasma total biliru bin measurement (mass/volume)on 04-13-2020 Bilirubin [Mass/Vol] 0.8 mg/dL 0.3-1.[address] [facility] Serum or plasma total carbon dioxide measurement (moles/volume)on 04-13-2020 CO2 [Moles/Vol] 25.8 mmol/L 22.0-30.0 [facility] Serum or plasma urea nitroge n measurement (mass/volume)on 04-13-2020 Urea nitrogen [Mass/Vol] 9 mg/dL 01-12 [facility] Urine lactic acid measuremen ton 04-13-2020 Lactate (U) [Moles/Vol] 1.2 mmol/L [facility] C REACTIVE PROTEINon 020 CRP [Mass/Vol] mg/L Normal 0.0-7.0 [facility] Comment on above: Order Comment: No: D o not add to previous draw Performed By: #### 0 0071, 64876, 62876, 60662, 96452, 01868 #### [facility] [address] CPKon 03-14-2020 CK [Catalytic activity/Vol] 30 U/L Normal 30-223 [facility] Comment on above: Order Comment: No: D o not add to previous draw Performed By: #### 0 0071, 35137, 26711, 54851, 15828, 49287 #### [facility] [address] D DIMER TESTon 03-14-2020 D-DIMER TEST 2.02 mcg/mL FEU High 0.27-0.49 [facility] Comment on above: Order Comment: No: D o not add to previous draw Result Comment: D-Di salvador values of less than 0.50 ug/ml (FEU) are considered to be a negative predictor of thrombosis. However, the D-Dimer result should be used in conjunction with pretest probability and should not be used alone to diagnose a thrombotic event. Performed By: #### 0 0071, 37536, 85814, 25260, 22611, 27457 #### [facility] [address] [place] [address], [facility] FERRITINon 03-14-2020 Ferritin [Mass/Vol] 67 ng/mL Normal 11-307 [facility] Comment on above: Order Comment: No: D o not add to previous draw Performed By: #### 0 0071, 86242, 50479, 33645, 84546, 34205 #### [facility] [address] [place] [address], [facility] LDH BLOODon 03-14-2020 LDH 137 Units/L Low 140-271 [facility] Comment on above: Order Comment: No: D o not add to previous draw Performed By: #### 0 0071, 54682, 80319, 59969, 70499, 25655 #### [facility] [address] LIVER BATTERYon 03-14-2020 Albumin [Mass/Vol] 3.4 g/dL Low 3.5-5.7 [facility] Comment on above: Order Comment: No: D o not add to previous draw Performed By: #### 0 0071, 55366, 80169, 22522, 82938, 79787 #### [facility] [address] [place] [address], [facility] ALKALINE PHOSPH 62 IU/L Normal 34-104 [facility] Comment on above: Order Comment: No: D o not add to previous draw Performed By: #### 0 0071, 14270, 33341, 73215, 15500, 15651 #### [facility] [address] ALT [Catalytic activity/Vol] 6 U/L Low 7-[address] [facility] Comment on above: Order Comment: No: D o not add to previous draw Performed By: #### 0 0071, 63958, 11166, 87490, 04821, 99930 #### [facility] [address] [place] [address], [facility] AST [Catalytic activity/Vol] 15 U/L Normal 13-[address] [facility] Comment on above: Order Comment: No: D o not add to previous draw Performed By: #### 0 0071, 24446, 19504, 60806, 39698, 95659 #### [facility] [address] [place] [address], [place] Bilirubin [Mass/Vol] 0.7 mg/dL Normal 0.3-1.[address] [facility] Comment on above: Order Comment: No: D o not add to previous draw Performed By: #### 0 0071, 02996, 70347, 50333, 54829, 91802 #### [facility] [address] [place] [id number], [facility] Bilirubin.direct [Mass/Vol] 0.1 mg/dL Normal 0.0-0.2 [facility] Comment on above: Order Comment: No: D o not add to previous draw Performed By: #### 0 0071, 96994, 67721, 41492, 30458, 43177 #### [facility] [address] [place] [address], [facility] Protein [Mass/Vol] 5.9 g/dL Low 6.0-8.3 [facility] Comment on above: Order Comment: No: D o not add to previous draw Performed By: #### 0 0071, 35304, 29972, 38616, 98305, 74067 #### [facility] [address] [place] [address], [place] C REACTIVE PROTEINon 11-21-2 020 CRP [Mass/Vol] 2.2 mg/L Normal 0.0-7.0 [facility] Comment on above: Order Comment: No: D o not add to previous draw Performed By: #### 0 0071, 52144, 93937, 09291, 62770, 17895 #### [facility] [address] CBC W/DIFFon 03-12-2020 ABS BASOPHILS 0.0 10*3/uL Normal 0.0-0.2 [facility] Comment on above: Order Comment: No: D o not add to previous draw Performed By: #### 0 0071, 28882, 45615, 94361, 08662, 75378 #### [facility] [address] ABS IMM GRANS 0.0 10*3/uL Normal 0.0-0.2 [facility] Comment on above: Order Comment: No: D o not add to previous draw Performed By: #### 0 0071, 90670, 19949, 98998, 64310, 15932 #### [facility] [address] ABS NEUTROPHILS 1.2 10*3/uL Low 1.6-7.6 The [facility] Comment on above: Order Comment: No: D o not add to previous draw Performed By: #### 0 0071, 11104, 91980, 41580, 85168, 60731 #### [facility] [address] Basophils/100 WBC (Bld) 0.5 % Normal 0.0-1.0 The [facility] Comment on above: Order Comment: No: D o not add to previous draw Performed By: #### 0 0071, 11998, 85926, 54434, 86331, 17485 #### [facility] [address] Eosinophils (Bld) [#/Vol] 0.2 10*3/uL Normal 0.0-0.5 [facility] Comment on above: Order Comment: No: D o not add to previous draw Performed By: #### 0 0071, 75286, 11401, 10663, 44549, 83596 #### [facility] [address] [place] [address], [facility] Eosinophils/100 WBC (Bld) 4.7 % Normal 0.0-6.0 [facility] Comment on above: Order Comment: No: D o not add to previous draw Performed By: #### 0 0071, 23381, 65974, 39270, 01099, 31135 #### [facility] [address] [place] [address], [facility] Erythrocyte distribution width (RBC) [Ratio] 13.2 % Normal 11.5-15.0 [facility] Comment on above: Order Comment: No: D o not add to previous draw Performed By: #### 0 0071, 62062, 26535, 33477, 21473, 67983 #### [facility] [address] Hematocrit (Bld) [Volume fraction] 33.7 % Low 36.0-45.0 [facility] Comment on above: Order Comment: No: D o not add to previous draw Performed By: #### 0 0071, 68755, 93577, 36830, 37013, 49902 #### [facility] [address] [facility] [place] [address], [facility] Hemoglobin (Bld) [Mass/Vol] 10.9 g/dL Low 12.0-15.0 [facility] Comment on above: Order Comment: No: D o not add to previous draw Performed By: #### 0 0071, 31097, 41872, 47959, 49018, 11495 #### [facility] [address] [place] [address], [facility] IMMATURE GRANS 0.2 % Normal 0.0-1.0 The [facility] Comment on above: Order Comment: No: D o not add to previous draw Performed By: #### 0 0071, 98189, 53266, 36634, 07274, 79249 #### [facility] [address] [facility] [place] [address], [facility] Lymphocytes (Bld) [#/Vol] 2.2 10*3/uL Normal 1.2-4.0 [facility] Comment on above: Order Comment: No: D o not add to previous draw Performed By: #### 0 0071, 60374, 56924, 23875, 26587, 03136 #### [facility] [address] [facility] [place] [address], [facility] Lymphocytes/100 WBC (Bld) 53.7 % High 20.0-45.0 [facility] Comment on above: Order Comment: No: D o not add to previous draw Performed By: #### 0 0071, 20141, 92857, 89254, 19552, 68399 #### [facility] [address] [facility] [place] [address], [facility] MCH (RBC) [Entitic mass] 30.1 pg Normal 27.0-33.0 [facility] Comment on above: Order Comment: No: D o not add to previous draw Performed By: #### 0 0071, 15680, 24125, 79993, 90429, 87140 #### [facility] [address] [facility] [place] [address], [facility] MCHC (RBC) [Mass/Vol] 32.3 g/dL Normal 32.0-35.0 [facility] Comment on above: Order Comment: No: D o not add to previous draw Performed By: #### 0 0071, 67870, 33302, 85125, 59935, 75961 #### [facility] [address] [place] [address], [facility] MCV (RBC) [Entitic vol] 93.1 fL Normal 82.0-98.0 [facility] Comment on above: Order Comment: No: D o not add to previous draw Performed By: #### 0 0071, 85437, 12025, 58580, 63008, 68678 #### [facility] [address] [facility] [place] [address], [facility] Monocytes (Bld) [#/Vol] 0.5 10*3/uL Normal 0.1-1.[address] [facility] Comment on above: Order Comment: No: D o not add to previous draw Performed By: #### 0 0071, 76289, 53110, 99805, 16846, 47450 #### [facility] [address] [place] [address], [facility] MONOS 11.1 % Normal 5.0-12.0 [facility] Comment on above: Order Comment: No: D o not add to previous draw Performed By: #### 0 0071, 16572, 94383, 84099, 87107, 84925 #### [facility] [address] [place] [address], [facility] Neutrophils/100 WBC (Bld) 29.8 % Low 40.0-72.0 [facility] Comment on above: Order Comment: No: D o not add to previous draw Performed By: #### 0 0071, 98054, 28351, 20104, 80152, 98154 #### [facility] [address] [place] [address], [facility] Nucleated RBC/100 WBC (Bld) [Ratio] 0 % Normal 0-0 [facility] Comment on above: Order Comment: No: D o not add to previous draw Performed By: #### 0 0071, 47957, 95422, 64274, 77504, 28717 #### [facility] [address] [place] [address], [facility] PLAT CNT 263 10*3/uL Normal 150-400 [facility] Comment on above: Order Comment: No: D o not add to previous draw Performed By: #### 0 0071, 70831, 56560, 61873, 52108, 83517 #### [facility] [address] [facility] [place] [address], [facility] RBC (Bld) [#/Vol] 3.62 10*6/uL Low 3.80-5.00 [facility] Comment on above: Order Comment: No: D o not add to previous draw Performed By: #### 0 0071, 73524, 67386, 37841, 59737, 95057 #### [facility] [address] [facility] [address] WBC (Bld) [#/Vol] 4.06 10*3/uL Normal 4.00-10.60 [facility] Comment on above: Order Comment: No: D o not add to previous draw Performed By: #### 0 0071, 89533, 31450, 74574, 89952, 44272 #### [facility] [address] [facility] CPKon 03-12-2020 CK [Catalytic activity/Vol] 23 U/L Low 30-[address] [facility] Comment on above: Order Comment: Unkno wn Performed By: #### 8 4045, 20013, 68512, 96641 #### [facility] [address] [facility] D DIMER TESTon 03-12-2020 D-DIMER TEST 0.49 mcg/mL FEU Normal 0.27-0.49 [facility] Comment on above: Order Comment: No: D o not add to previous draw Result Comment: D-Di salvador values of less than 0.50 ug/ml (FEU) are considered to be a negative predictor of thrombosis. However, the D-Dimer result should be used in conjunction with pretest probability and should not be used alone to diagnose a thrombotic event. Performed By: #### 0 0071, 58111, 70188, 67656, 45319, 44961 #### [facility] [address] [facility]. [address] FERRITINon 03-12-2020 Ferritin [Mass/Vol] 58 ng/mL Normal 11-307 [facility] Comment on above: Order Comment: Unkno wn Performed By: #### 8 4045, 72203, 96292, 57129 #### [facility] [address] [place] [address], [place] LDH BLOODon 03-12-2020 LDH 120 Units/L Low 140-271 [facility] Comment on above: Order Comment: Unkno wn Performed By: #### 8 4045, 70169, 80662, 71917 #### [facility] [address] [place] [address], [place] LIVER BATTERYon 03-12-2020 Albumin [Mass/Vol] 3.2 g/dL Low 3.5-5.7 [facility] Comment on above: Order Comment: Unkno wn Performed By: #### 8 4045, 33978, 09220, 86581 #### [facility] [address] [place] [address], [place] ALKALINE PHOSPH 57 IU/L Normal 34-104 The [facility] Comment on above: Order Comment: Unkno wn Performed By: #### 8 4045, 01334, 29136, 38581 #### [facility] [address] [place] [address], [place] ALT [Catalytic activity/Vol] 6 U/L Low 7-52 [facility] Comment on above: Order Comment: Unkno wn Performed By: #### 8 4045, 62107, 15944, 35347 #### [facility] [address] [place] [address], [place] AST [Catalytic activity/Vol] 16 U/L Normal 13-39 [facility] Comment on above: Order Comment: Unkno wn Performed By: #### 8 4045, 52596, 12574, 19143 #### [facility] [address] [place] [address], [place] Bilirubin [Mass/Vol] 0.5 mg/dL Normal 0.3-1.0 [facility] Comment on above: Order Comment: Unkno wn Performed By: #### 8 4045, 78500, 29605, 94343 #### [facility] [address] [place] [address], [facility] Bilirubin.direct [Mass/Vol] 0.1 mg/dL Normal 0.0-0.2 [facility] Comment on above: Order Comment: Unkno wn Performed By: #### 8 4045, 62893, 65455, 01006 #### [facility] [address] [place] [address], [facility] Protein [Mass/Vol] 5.6 g/dL Low 6.0-8.3 [facility] Comment on above: Order Comment: Unkno wn Performed By: #### 8 4045, 93919, 39859, 53703 #### [facility] [address] [place] [address], [facility] BASIC METABOLIC PANELon 11-2 0-2020 Calcium [Mass/Vol] 8.7 mg/dL Normal 8.6-10.3 [facility] Comment on above: Order Comment: No: D o not add to previous draw Performed By: #### 0 0071, 57520, 83135, 40094, 52342, 08068 #### [facility] [address] [place] [address], [place] Chloride [Moles/Vol] 104 mmol/L Normal 98-107 [facility] Comment on above: Order Comment: No: D o not add to previous draw Performed By: #### 0 0071, 38084, 61945, 40703, 28047, 51962 #### [facility] [address] [place] [address], [place] CO2 [Moles/Vol] 28 mmol/L Normal 21-31 [facility] Comment on above: Order Comment: No: D o not add to previous draw Performed By: #### 0 0071, 61073, 15222, 97621, 10424, 77362 #### [facility] [address] [place] [address], [place] Creatinine [Mass/Vol] 0.54 mg/dL Low 0.60-1.[address] [facility] Comment on above: Order Comment: No: D o not add to previous draw Performed By: #### 0 0071, 20302, 96682, 82748, 23834, 59761 #### [facility] [address] [place] [address], [place] GFR/1.73 sq M predicted among blacks MDRD (S/P/Bld) [Vol rate/Area] mL/min/{1.73_m2} Normal >60 [facility] Comment on above: Order Comment: No: D o not add to previous draw Result Comment: Calc ulation may not be valid for patients over 70 years Performed By: #### 0 0071, 38931, 94549, 95462, 59288, 53952 #### [facility] [address] [place] [address], [place] GFR/1.73 sq M predicted among non-blacks MDRD (S/P/Bld) [Vol rate/Area] mL/min/{1.73_m2} Normal >60 [facility] Comment on above: Order Comment: No: D o not add to previous draw Result Comment: Calc ulation may not be valid for patients over 70 years Performed By: #### 0 0071, 93094, 02616, 70070, 78177, 11666 #### [facility] [address] [place] [address], [place] Glucose [Mass/Vol] 103 mg/dL High 70-100 [facility] Comment on above: Order Comment: No: D o not add to previous draw Performed By: #### 0 0071, 00735, 43357, 90300, 44808, 12720 #### [facility] [address] Potassium [Moles/Vol] 4.1 mmol/L Normal 3.5-5.1 [facility] Comment on above: Order Comment: No: D o not add to previous draw Performed By: #### 0 0071, 77990, 36835, 11271, 71595, 05208 #### [facility] [address] [place] [address], [facility] Sodium [Moles/Vol] 139 mmol/L Normal 136-145 [facility] Comment on above: Order Comment: No: D o not add to previous draw Performed By: #### 0 0071, 84467, 04990, 84666, 73899, 87267 #### [facility] [address] [place] [address], [facility] Urea nitrogen [Mass/Vol] 7 mg/dL Normal 7-25 [facility] Comment on above: Order Comment: No: D o not add to previous draw Performed By: #### 0 0071, 24597, 83490, 07072, 77088, 76985 #### [facility] [address] [facility] [place] [address], [facility] CBC W/DIFFon 03-11-2020 ABS BASOPHILS 0.0 10*3/uL Normal 0.0-0.2 The [facility] Comment on above: Order Comment: No: D o not add to previous draw Performed By: #### 0 0071, 74074, 54871, 14620, 55649, 40774 #### [facility] [address] [place] [address], [facility] ABS IMM GRANS 0.0 10*3/uL Normal 0.0-0.2 [facility] Comment on above: Order Comment: No: D o not add to previous draw Performed By: #### 0 0071, 05599, 80383, 26827, 73117, 38347 #### [facility] [address] [place] [address], [facility] ABS NEUTROPHILS 2.2 10*3/uL Normal 1.6-7.6 [facility] Comment on above: Order Comment: No: D o not add to previous draw Performed By: #### 0 0071, 66365, 32044, 84155, 30460, 04921 #### [facility] [address] [place] [address], [facility] Basophils/100 WBC (Bld) 0.2 % Normal 0.0-1.0 [facility] Comment on above: Order Comment: No: D o not add to previous draw Performed By: #### 0 0071, 11135, 96763, 13225, 14520, 87778 #### [facility] [address] [facility] [place] [address], [facility] Eosinophils (Bld) [#/Vol] 0.2 10*3/uL Normal 0.0-0.5 [facility] Comment on above: Order Comment: No: D o not add to previous draw Performed By: #### 0 0071, 85194, 00321, 82420, 49221, 37002 #### [facility] [address] [place] [address], [facility] Eosinophils/100 WBC (Bld) 3.7 % Normal 0.0-6.0 [facility] Comment on above: Order Comment: No: D o not add to previous draw Performed By: #### 0 0071, 85821, 17222, 27959, 23930, 55672 #### [facility] [address] [place] [address], [facility] Erythrocyte distribution width (RBC) [Ratio] 13.4 % Normal 11.5-15.0 [facility] Comment on above: Order Comment: No: D o not add to previous draw Performed By: #### 0 0071, 35877, 67718, 48309, 25965, 48525 #### [facility] [address] [place] [address], [facility] Hematocrit (Bld) [Volume fraction] 35.8 % Low 36.0-45.0 [facility] Comment on above: Order Comment: No: D o not add to previous draw Performed By: #### 0 0071, 11443, 54946, 33691, 07415, 11319 #### [facility] [address] [place] [address], [facility] Hemoglobin (Bld) [Mass/Vol] 11.6 g/dL Low 12.0-15.0 [facility] Comment on above: Order Comment: No: D o not add to previous draw Performed By: #### 0 0071, 98702, 39387, 52597, 01940, 95049 #### [facility] [address] [facility] [place] [address], [facility] IMMATURE GRANS 0.0 % Normal 0.0-1.0 The [facility] Comment on above: Order Comment: No: D o not add to previous draw Performed By: #### 0 0071, 28599, 19482, 71201, 46569, 20340 #### [facility] [address] [place] [address], [facility] Lymphocytes (Bld) [#/Vol] 2.1 10*3/uL Normal 1.2-4.0 [facility] Comment on above: Order Comment: No: D o not add to previous draw Performed By: #### 0 0071, 88791, 57926, 61614, 44707, 89446 #### [facility] [address] [place] [address], [facility] Lymphocytes/100 WBC (Bld) 42.2 % Normal 20.0-45.0 [facility] Comment on above: Order Comment: No: D o not add to previous draw Performed By: #### 0 0071, 42414, 87171, 64510, 51470, 45081 #### [facility] [address] [place] [address], [facility] MCH (RBC) [Entitic mass] 30.1 pg Normal 27.0-33.0 [facility] Comment on above: Order Comment: No: D o not add to previous draw Performed By: #### 0 0071, 58746, 63166, 65410, 34165, 89867 #### [facility] [address] [place] [address], [facility] MCHC (RBC) [Mass/Vol] 32.4 g/dL Normal 32.0-35.0 [facility] Comment on above: Order Comment: No: D o not add to previous draw Performed By: #### 0 0071, 70882, 57703, 77909, 55925, 14007 #### [facility] [address] [facility] [place] [address], [facility] MCV (RBC) [Entitic vol] 92.7 fL Normal 82.0-98.0 [facility] Comment on above: Order Comment: No: D o not add to previous draw Performed By: #### 0 0071, 83773, 52685, 19185, 58502, 07921 #### [facility] [address] [place] [address], [facility] Monocytes (Bld) [#/Vol] 0.5 10*3/uL Normal 0.1-1.0 [facility] Comment on above: Order Comment: No: D o not add to previous draw Performed By: #### 0 0071, 18508, 80841, 65741, 12662, 21350 #### [facility] [address] [facility] [place] [address], [facility] MONOS 9.1 % Normal 5.0-12.0 [facility] Comment on above: Order Comment: No: D o not add to previous draw Performed By: #### 0 0071, 03005, 06482, 38024, 07723, 10137 #### [facility] [address] [place] [address], [facility] Neutrophils/100 WBC (Bld) 44.8 % Normal 40.0-72.0 [facility] Comment on above: Order Comment: No: D o not add to previous draw Performed By: #### 0 0071, 99312, 80071, 03294, 61873, 30762 #### [facility] [address] Nucleated RBC/100 WBC (Bld) [Ratio] 0 % Normal 0-0 [facility] Comment on above: Order Comment: No: D o not add to previous draw Performed By: #### 0 0071, 47178, 84702, 80897, 18172, 12864 #### [facility] [address] PLAT CNT 246 10*3/uL Normal 150-400 [facility] Comment on above: Order Comment: No: D o not add to previous draw Performed By: #### 0 0071, 23747, 91905, 15839, 13962, 87726 #### [facility] [address] RBC (Bld) [#/Vol] 3.86 10*6/uL Normal 3.80-5.00 [facility] Comment on above: Order Comment: No: D o not add to previous draw Performed By: #### 0 0071, 37123, 10710, 71189, 13667, 15749 #### [facility] [address] [place] [address], [facility] WBC (Bld) [#/Vol] 4.93 10*3/uL Normal 4.00-10.60 [facility] Comment on above: Order Comment: No: D o not add to previous draw Performed By: #### 0 0071, 27699, 79225, 78217, 93953, 90175 #### [facility] [address] [facility] APTTon 03-10-2020 aPTT Coag (Bld) [Time] 30.9 s Normal 25.0-35.0 [facility] Comment on above: Result Comment: [...] THIS PURPOSE. Performed By: #### 0 0071, 98237, 85479, 16855, 88393, 72339 #### [facility] [address] BASIC METABOLIC PANELon 11 Calcium [Mass/Vol] 8.0 mg/dL Low 8.6-10.3 [facility] Comment on above: Order Comment: No: D o not add to previous draw Performed By: #### 0 0071, 27915, 84189, 03517, 11353, 87890 #### [facility] [address] [facility] [place] [address], [facility] Chloride [Moles/Vol] 107 mmol/L Normal 98-107 [facility] Comment on above: Order Comment: No: D o not add to previous draw Performed By: #### 0 0071, 68104, 34489, 51926, 66956, 76951 #### [facility] [address] [facility] [place] [address], [facility] CO2 [Moles/Vol] 27 mmol/L Normal 21-31 [facility] Comment on above: Order Comment: No: D o not add to previous draw Performed By: #### 0 0071, 17727, 73340, 38438, 95733, 94073 #### [facility] [address] [place] [address], [facility] Creatinine [Mass/Vol] 0.58 mg/dL Low 0.60-1.[address] [facility] Comment on above: Order Comment: No: D o not add to previous draw Performed By: #### 0 0071, 80063, 00285, 42660, 66984, 80352 #### [facility] [address] [place] [address], [facility] Glucose [Mass/Vol] 100 mg/dL Normal 70-100 The [facility] Comment on above: Order Comment: No: D o not add to previous draw Performed By: #### 0 0071, 42287, 31223, 43281, 49656, 19647 #### [facility] [address] [place] [address], [facility] Potassium [Moles/Vol] 3.9 mmol/L Normal 3.5-5.1 [facility] Comment on above: Order Comment: No: D o not add to previous draw Performed By: #### 0 0071, 00897, 57406, 15012, 58342, 41384 #### [facility] [address] [place] [address], [facility] Sodium [Moles/Vol] 138 mmol/L Normal 136-145 [facility] Comment on above: Order Comment: No: D o not add to previous draw Performed By: #### 0 0071, 32955, 81907, 81789, 60484, 28865 #### [facility] [address] [place] [address], [facility] BNP EDon 03-10-2020 Natriuretic peptide B (Bld) [Mass/Vol] 42 pg/mL Normal 0-100 [facility] Comment on above: Result Comment: Give n the appropriate clinical setting a BNP result of >100 pg/mL indicates congestive heart failure. Performed By: #### 0 0071, 07317, 34014, 47290, 74529, 95217 #### [facility] [address] [place] [address], [facility] C REACTIVE PROTEINon 020 CRP [Mass/Vol] 1.3 mg/L Normal 0.0-7.0 [facility] Comment on above: Performed By: #### 0 0071, 00730, 24379, 92645, 99288, 40410 #### [facility] [address] [place] [address], [facility] CRP [Mass/Vol] 1.8 mg/L Normal 0.0-7.0 [facility] Comment on above: Order Comment: No: D o not add to previous draw Performed By: #### 0 [id number], 03930, 01348, 50083, 28866, 43621 #### [facility] [address] [place] [address], [facility] CBC W/DIFFon 03-10-2020 ABS NEUTROPHILS 2.9 10*3/uL Normal 1.6-7.6 [facility] Comment on above: Performed By: #### 0 0071, [id number], 21644, 67063, 32852, 25822 #### [facility] [address] [place] [address], [facility] Eosinophils/100 WBC (Bld) 3.8 % Normal 0.0-6.0 [facility] Comment on above: Performed By: #### 0 0071, [id number], 64202, 45484, 20532, 19762 #### [facility] [facility] [address] [facility] [place] [address], [facility] Erythrocyte distribution width (RBC) [Ratio] 13.6 % Normal 11.5-15.0 The [facility] Comment on above: Performed By: #### 0 0071, 72700, 25000, 32413, 10390, 26854 #### [facility] [address] [place] [address], [facility] Hematocrit (Bld) [Volume fraction] 30.8 % Low 36.0-45.0 The [facility] Comment on above: Performed By: #### 0 0071, 88020, 62838, 40699, 07908, 54813 #### [facility] [address] [place] [address], [facility] Hemoglobin (Bld) [Mass/Vol] 9.8 g/dL Low 12.0-15.0 [facility] Comment on above: Performed By: #### 0 0071, 39107, 79482, 85953, 91354, 15386 #### [facility] [address] [facility] [address], [facility] IMMATURE GRANS 0.6 % Normal 0.0-1.0 The [facility] Comment on above: Performed By: #### 0 0071, 96951, 70446, 85347, 20730, 35371 #### [facility] [address] [facility] [place] [address], [facility] Lymphocytes (Bld) [#/Vol] 1.6 10*3/uL Normal 1.2-4.0 [facility] Comment on above: Performed By: #### 0 0071, 30819, 55483, 40586, 09542, 31610 #### [facility] [address] [facility] [place] [address], [facility] Lymphocytes/100 WBC (Bld) 30.8 % Normal 20.0-45.0 [facility] Comment on above: Performed By: #### 0 0071, 99107, 82514, 05895, 05714, 66066 #### [facility] [address] [facility] [place] [address], [facility] MCH (RBC) [Entitic mass] 30.5 pg Normal 27.0-33.0 [facility] Comment on above: Performed By: #### 0 0071, 24922, 57682, 63560, 85590, 66202 #### [facility] [address] [place] [address], [facility] MCHC (RBC) [Mass/Vol] 31.8 g/dL Low 32.0-35.0 [facility] Comment on above: Performed By: #### 0 0071, 98316, 03617, 66564, 75709, 49922 #### [facility] [address] MCV (RBC) [Entitic vol] 96.0 fL Normal 82.0-98.0 [facility] Comment on above: Performed By: #### 0 0071, 42563, 83245, 36046, 13779, 52192 #### [facility] [address] [place] [address], [facility] Monocytes (Bld) [#/Vol] 0.5 10*3/uL Normal 0.1-1.0 [facility] Comment on above: Performed By: #### 0 0071, 25448, 58673, 40774, 84243, 11226 #### [facility] [address] MONOS 9.8 % Normal 5.0-12.0 [facility] Comment on above: Performed By: #### 0 0071, 46957, 86701, 85236, 86783, 58235 #### [facility] [address] Neutrophils/100 WBC (Bld) 54.6 % Normal 40.0-72.0 [facility] Comment on above: Performed By: #### 0 0071, 06732, 65913, 96924, 58565, 80549 #### [facility] [address] [place] [address], [facility] PLAT CNT 183 10*3/uL Normal 150-400 The [facility] Comment on above: Performed By: #### 0 0071, 62388, 75113, 71034, 83761, 94675 #### [facility] [address] [place] [address], [facility] RBC (Bld) [#/Vol] 3.21 10*6/uL Low 3.80-5.00 [facility] Comment on above: Performed By: #### 0 0071, 57771, 09313, 36061, 15598, 84136 #### [facility] [address] WBC (Bld) [#/Vol] 5.33 10*3/uL Normal 4.00-10.60 [facility] Comment on above: Performed By: #### 0 0071, 25927, 81911, 59289, 92020, 03681 #### [facility] [address] ABS BASOPHILS 0.0 10*3/uL Normal 0.0-0.2 The [facility] Comment on above: Performed By: #### 0 0071, 99376, 23665, 86491, 16088, 03607 #### [facility] [address] Order Comment: No: D o not add to previous draw ABS IMM GRANS 0.0 10*3/uL Normal 0.0-0.2 The [facility] Comment on above: Performed By: #### 0 0071, 68998, 66406, 22131, 49429, 33255 #### [facility] [address] Order Comment: No: D o not add to previous draw ABS NEUTROPHILS 2.4 10*3/uL Normal 1.6-7.6 The [facility] Comment on above: Order Comment: No: D o not add to previous draw Performed By: #### 0 0071, 93357, 33512, 98779, 26255, 72126 #### [facility] [address] Basophils/100 WBC (Bld) 0.4 % Normal 0.0-1.0 [facility] Comment on above: Performed By: #### 0 0071, 80620, 09376, 50491, 35145, 89711 #### [facility] [address] Order Comment: No: D o not add to previous draw Eosinophils (Bld) [#/Vol] 0.2 10*3/uL Normal 0.0-0.5 [facility] Comment on above: Performed By: #### 0 0071, 34277, 68711, 19820, 04165, 24976 #### [facility] [address] Order Comment: No: D o not add to previous draw Eosinophils/100 WBC (Bld) 4.2 % Normal 0.0-6.0 [facility] Comment on above: Order Comment: No: D o not add to previous draw Performed By: #### 0 0071, 19187, 77526, 11648, 88022, 84946 #### [facility] [address] Erythrocyte distribution width (RBC) [Ratio] 13.5 % Normal 11.5-15.0 [facility] Comment on above: Order Comment: No: D o not add to previous draw Performed By: #### 0 0071, 33036, 20411, 06024, 62334, 77800 #### [facility] [address] Hematocrit (Bld) [Volume fraction] 33.4 % Low 36.0-45.0 [facility] Comment on above: Order Comment: No: D o not add to previous draw Performed By: #### 0 0071, 12032, 53388, 73732, 00654, 39140 #### [facility] [address] Hemoglobin (Bld) [Mass/Vol] 10.4 g/dL Low 12.0-15.0 [facility] Comment on above: Order Comment: No: D o not add to previous draw Performed By: #### 0 0071, 71610, 20739, 97263, 66371, 64342 #### [facility] [address] IMMATURE GRANS 0.2 % Normal 0.0-1.0 The [facility] Comment on above: Order Comment: No: D o not add to previous draw Performed By: #### 0 0071, 91991, 29865, 35186, 97143, 17444 #### [facility] [address] [place] [address], [facility] Lymphocytes (Bld) [#/Vol] 2.2 10*3/uL Normal 1.2-4.0 [facility] Comment on above: Order Comment: No: D o not add to previous draw Performed By: #### 0 0071, 78254, 91536, 66761, 94761, 73980 #### [facility] [address] [place] [address], [facility] Lymphocytes/100 WBC (Bld) 42.2 % Normal 20.0-45.0 [facility] Comment on above: Order Comment: No: D o not add to previous draw Performed By: #### 0 0071, 79398, 50180, 57928, 49564, 74146 #### [facility] [address] [place] [address], [facility] MCH (RBC) [Entitic mass] 30.0 pg Normal 27.0-33.0 [facility] Comment on above: Order Comment: No: D o not add to previous draw Performed By: #### 0 0071, 91584, 54692, 05679, 99203, 31214 #### [facility] [address] [place] [address], [facility] MCHC (RBC) [Mass/Vol] 31.1 g/dL Low 32.0-35.0 [facility] Comment on above: Order Comment: No: D o not add to previous draw Performed By: #### 0 0071, 40943, 16339, 06062, 80192, 92384 #### [facility] [address] [place] [address], [facility] MCV (RBC) [Entitic vol] 96.3 fL Normal 82.0-98.0 [facility] Comment on above: Order Comment: No: D o not add to previous draw Performed By: #### 0 0071, 12964, 52628, 36479, 60259, 92806 #### [facility] [address] [place] [address], [facility] Monocytes (Bld) [#/Vol] 0.4 10*3/uL Normal 0.1-1.0 [facility] Comment on above: Order Comment: No: D o not add to previous draw Performed By: #### 0 0071, 85766, 90280, 82587, 27412, 26821 #### [facility] [address] [facility] [facility] MONOS 7.4 % Normal 5.0-12.0 [facility] Comment on above: Order Comment: No: D o not add to previous draw Performed By: #### 0 0071, 93338, 94219, 76595, 96184, 10720 #### [facility] [address] [facility] [address] Neutrophils/100 WBC (Bld) 45.6 % Normal 40.0-72.0 [facility] Comment on above: Order Comment: No: D o not add to previous draw Performed By: #### 0 0071, 75654, 09851, 66637, 94701, 40814 #### [facility] [address] [facility] [place] [address], [facility] Nucleated RBC/100 WBC (Bld) [Ratio] 0 % Normal 0-0 [facility] Comment on above: Performed By: #### 0 0071, 16946, 74742, 61805, 09871, 16713 #### [facility] [address] Order Comment: No: D o not add to previous draw PLAT CNT 209 10*3/uL Normal 150-400 The [facility] Comment on above: Order Comment: No: D o not add to previous draw Performed By: #### 0 0071, 94444, 73048, 00658, 46221, 91235 #### [facility] [address] [place] [address], [facility] RBC (Bld) [#/Vol] 3.47 10*6/uL Low 3.80-5.00 [facility] Comment on above: Order Comment: No: D o not add to previous draw Performed By: #### 0 0071, 46172, 33494, 74520, 53889, 73067 #### [facility] [address] [place] [address], [facility] WBC (Bld) [#/Vol] 5.29 10*3/uL Normal 4.00-10.60 [facility] Comment on above: Order Comment: No: D o not add to previous draw Performed By: #### 0 0071, 14321, 13977, 11925, 99514, 09611 #### [facility] [address] COMP METABOLIC PANELon 03-10 Albumin [Mass/Vol] 2.6 g/dL Low 3.5-5.7 [facility] Comment on above: Performed By: #### 0 0071, 07102, 39074, 98925, 04190, 09123 #### [facility] [address] [facility] [address] ALKALINE PHOSPH 45 IU/L Normal 34-104 The [facility] Comment on above: Performed By: #### 0 0071, 08408, 72827, 88676, 56719, 08167 #### [facility] [address] ALT [Catalytic activity/Vol] 6 U/L Low 7-[address] [facility] Comment on above: Performed By: #### 0 0071, 90027, 47283, 09501, 77389, 19561 #### [facility] [address] [place] [address], [place] AST [Catalytic activity/Vol] 15 U/L Normal 13-39 [facility] Comment on above: Performed By: #### 0 0071, 46467, 62226, 40881, 36361, 64271 #### [facility] [address] [place] [address], [place] Calcium [Mass/Vol] 7.0 mg/dL Low 8.6-10.3 The [facility] Comment on above: Performed By: #### 0 0071, 84188, 80677, 19771, 60779, 18210 #### [facility] [address] [place] [address], [place] Chloride [Moles/Vol] 110 mmol/L High 98-107 [facility] Comment on above: Performed By: #### 0 0071, 87658, 14129, 41994, 65311, 44145 #### [facility] [address] [place] [address], [place] CO2 [Moles/Vol] 24 mmol/L Normal 21-31 The [facility] Comment on above: Performed By: #### 0 0071, 41929, 16519, 24763, 23841, 72165 #### [facility] [address] [place] [address], [place] Creatinine [Mass/Vol] 0.50 mg/dL Low 0.60-1.20 [facility] Comment on above: Performed By: #### 0 0071, 32064, 24433, 22678, 52174, 45270 #### [facility] [address] [place] [address], [place] Glucose [Mass/Vol] 101 mg/dL High 70-100 The [facility] Comment on above: Performed By: #### 0 0071, 09023, 03326, 65561, 43775, 31323 #### [facility] [address] [place] [address], [facility] Potassium [Moles/Vol] 3.4 mmol/L Low 3.5-5.1 [facility] Comment on above: Performed By: #### 0 0071, 83399, 16509, 32090, 83118, 52453 #### [facility] [address] [place] [address], [facility] Protein [Mass/Vol] 4.6 g/dL Low 6.0-8.3 [facility] Comment on above: Performed By: #### 0 0071, 99613, 72453, 00639, 11936, 51867 #### [facility] [address] [place] [address], [facility] Sodium [Moles/Vol] 139 mmol/L Normal 136-145 [facility] Comment on above: Performed By: #### 0 0071, 10947, 49350, 43623, 73110, 94034 #### [facility] [address] [place] [address], [facility] Bilirubin [Mass/Vol] 0.3 mg/dL Normal 0.3-1.0 [facility] Comment on above: Performed By: #### 0 0071, 49564, 17836, 00958, 20474, 13027 #### [facility] [address] [place] [address], [facility] Order Comment: No: D o not add to previous draw GFR/1.73 sq M predicted among blacks MDRD (S/P/Bld) [Vol rate/Area] mL/min/{1.73_m2} Normal >60 [facility] Comment on above: Result Comment: Calc ulation may not be valid for patients over 70 years Performed By: #### 0 0071, 19410, 81524, 29228, 63948, 73666 #### [facility] [address] Order Comment: No: D o not add to previous draw GFR/1.73 sq M predicted among non-blacks MDRD (S/P/Bld) [Vol rate/Area] mL/min/{1.73_m2} Normal >60 [facility] Comment on above: Result Comment: Calc ulation may not be valid for patients over 70 years Performed By: #### 0 0071, 17879, 06122, 71797, 07768, 30613 #### [facility] [address] [place], [place] [address] [place] [address] Order Comment: No: D o not add to previous draw Urea nitrogen [Mass/Vol] 7 mg/dL Normal 7-25 [facility] Comment on above: Performed By: #### 0 0071, 72797, 40165, 66605, 09178, 43617 #### [facility] [address] [facility] [address] Order Comment: No: D o not add to previous draw CPKon 03-10-2020 CK [Catalytic activity/Vol] 52 U/L Normal 30-223 [facility] Comment on above: Order Comment: No: D o not add to previous draw Performed By: #### 0 0071, 64656, 94333, 12350, 76012, 85123 #### [facility] [address] [facility] [address] LOWER EXTREMITY WO CONTRA ST LEFTon 03-10-2020 CT LOWER EXTREMITY WO CONTRAST LEFT [facility] Department of Radiology [address] [place] [address] Patient Name: SHWETA GALLEGOS : 1940 Sex: F Age: Race: White Pt. Location: [facility] Patient Status: I Ordered Date: 03/09/2020 9:10:00 [...] reports Electronically signed: Brennon Gabriel. Transcribed by: [email or web address], User Resident: JAMSHID BAILEY Electronically Signed by: BRENNON GABRIEL @ 03/10/2020 04:12 AM I personally read this/these film(s) with this resident Normal [facility] Comment on above: Order Comment: No: D o not add to previous draw D DIMER TESTon 03-10-2020 D-DIMER TEST 1.07 mcg/mL FEU High 0.27-0.49 [facility] Comment on above: Order Comment: No: D o not add to previous draw Result Comment: D-Di salvador values of less than 0.50 ug/ml (FEU) are considered to be a negative predictor of thrombosis. However, the D-Dimer result should be used in conjunction with pretest probability and should not be used alone to diagnose a thrombotic event. Performed By: #### 0 0071, 43116, 27874, 19603, 38236, 23870 #### [facility] [address] [place] [address], [facility] FERRITINon 03-10-2020 Ferritin [Mass/Vol] 57 ng/mL Normal 11-307 [facility] Comment on above: Order Comment: No: D o not add to previous draw Performed By: #### 0 0071, 99819, 74008, 08055, 65294, 19970 #### [facility] [address] [place] [address], [facility] LDH BLOODon 03-10-2020 LDH 207 Units/L Normal 140-271 [facility] Comment on above: Order Comment: No: D o not add to previous draw Performed By: #### 0 0071, 19841, 60157, 23816, 13033, 96618 #### [facility] [address] [place] [address], [facility] LIVER BATTERYon 03-10-2020 Albumin [Mass/Vol] 3.0 g/dL Low 3.5-5.7 The [facility] Comment on above: Order Comment: No: D o not add to previous draw Performed By: #### 0 0071, 63993, 02627, 24546, 40925, 76052 #### [facility] [address] [place] [address], [facility] ALKALINE PHOSPH 54 IU/L Normal 34-104 [facility] Comment on above: Order Comment: No: D o not add to previous draw Performed By: #### 0 0071, 40871, 01045, 98348, 85590, 33728 #### [facility] [address] [place] [address], [facility] ALT [Catalytic activity/Vol] 8 U/L Normal 7-52 [facility] Comment on above: Order Comment: No: D o not add to previous draw Performed By: #### 0 0071, 37153, 79990, 46635, 52433, 94066 #### [facility] [address] [place] [address], [facility] AST [Catalytic activity/Vol] 23 U/L Normal 13-39 [facility] Comment on above: Order Comment: No: D o not add to previous draw Performed By: #### 0 0071, 09919, 82661, 85296, 05683, 61963 #### [facility] [address] [place] [address], [facility] Bilirubin.direct [Mass/Vol] 0.0 mg/dL Normal 0.0-0.2 [facility] Comment on above: Order Comment: No: D o not add to previous draw Performed By: #### 0 0071, 33833, 58901, 22056, 90615, 97444 #### [facility] [address] [place] [address], [facility] Protein [Mass/Vol] 5.4 g/dL Low 6.0-8.3 The [facility] Comment on above: Order Comment: No: D o not add to previous draw Performed By: #### 0 0071, 63197, 23440, 71678, 66895, 72546 #### [facility] [address] [place] [address], [place] MAGNESIUM BLOODon 03-10-2020 Magnesium [Mass/Vol] 1.9 mg/dL Normal 1.9-2.7 [facility] Comment on above: Order Comment: No: D o not add to previous draw Performed By: #### 0 0071, 41936, 18051, 59031, 79107, 38310 #### [address] PORTABLE CHEST 1 VIEWon 02-20 PORTABLE CHEST 1 [facility] Department of Radiology [address] [place] [id number] Patient Name: SHWETA GALLEGOS : 1940 Sex: F Age: Race: White Pt. Location: [facility] Patient Status: I Ordered Date: 03/09/2020 9:50:00 [...] 19. Electronically signed: Luisa Blum. Transcribed by: [email or web address], User Resident: Electronically Signed by: LUISA BLUM @ 03/10/2020 09:41 AM Normal [facility] Comment on above: Order Comment: No: D o not add to previous draw PROTHROMBIN TIMEon 0 INR Coag (PPP) [Relative time] 1.05 {INR} Normal 0.91-1.[address] [facility] Comment on above: Result Comment: ACCC P [...] CHEST 1995;[id number]. Performed By: #### 0 0071, 54541, 84183, 48386, 78941, 10653 #### [facility] [address] PT Coag (PPP) [Time] 13.7 s Normal 12.3-14.[address] [facility] Comment on above: Result Comment: ALL RESULTS MUST BE INTERPRETED WITH RESPECT TO BLOOD DRAWING ARTIFACT OR DILUTION ERROR OF ANTICOAGULANT AT THE TIME OF SAMPLING. Performed By: #### 0 0071, 61859, 52889, 44632, 56670, 15444 #### [facility] [address] [place] [address], [facility] SEDIMENTATION RATEon 020 SED RATE 14 mm/hr Normal 0-20 [facility] Comment on above: Performed By: #### 0 0071, 34619, 09130, 82276, 77938, 37057 #### [facility] [address] TROPONIN-Ion 03-10-2020 Troponin I.cardiac [Mass/Vol] 0.01 ng/mL Normal 0.00-0.04 [facility] Comment on above: Result Comment: REFE RENCE RANGES: 0.00 - 0.04 ng/ml NORMAL 0.05 - 0.50 ng/ml INDETERMINATE > 0.50 ng/ml CONSISTENT WITH AN M.I. Performed By: #### 0 0071, 82970, 14481, 08684, 25646, 79675 #### [facility] [address] Vital Signs Date Time Vital Sign Value Performing Clinician Facility 08-25-2023 11:[id number] Body height 160.02 cm [facility] 08-25-2023 11:[id number] Body temperature 97.1 [degF] [facility] 08-25-2023 11:26-0400 Diastolic blood pressure 71 mm[Hg] [facility] 08-25-2023 11:26-0400 Heart rate 70 /min [facility] 08-25-2023 11:26-0400 Respiratory rate 18 /min [facility] 08-25-2023 11:26-0400 SaO2% (BldA) [Mass fraction] 97 % [facility] 08-25-2023 11:26-0400 Systolic blood pressure 126 mm[Hg] [facility] 10-09-2022 11:25-0400 Body height 160.02 cm Diana Gil Other [facility] Other 10-09-2022 11:25-0400 Body mass index (BMI) [Ratio] 35.85 kg/m2 Diana Gil Other [facility] Other 10-09-2022 11:25-0400 Body temperature 97.8 [degF] Diana Gil Other [facility] Other 10-09-2022 11:25-0400 Body weight 91.81 kg Diana Gil Other [facility] Other 10-09-2022 11:25-0400 Diastolic blood pressure 68 mm[Hg] Diana Gil Other [facility] Other 10-09-2022 11:25-0400 Respiratory rate 18 /min Diana Gil Other [facility] Other 10-09-2022 11:25-0400 SaO2% (BldA) [Mass fraction] 96 % Diana Gil Other [facility] Other 10-09-2022 11:25-0400 Systolic blood pressure 143 mm[Hg] Diana Gil Other [facility] [employer] Other 05-03-2020 10:24-0500 BMI (Body Mass Index) 35.4 kg/m2 [facility] 05-03-2020 10:24-0500 Body weight 90.71 kg [facility] 05-03-2020 10:24-0500 Height 160.02 cm [facility] 05-03-2020 09:47-0500 Body Temperature 97.7 [degF] [facility] 05-03-2020 09:47-0500 BP Diastolic 72 mm[Hg] [facility] 05-03-2020 09:47-0500 BP Systolic 108 mm[Hg] [facility] 05-03-2020 09:47-0500 Pulse (Heart Rate) 68 /min [facility] 05-03-2020 09:47-0500 Respiratory Rate 18 /min [facility] 04-15-2020 08:52-0500 Body Temperature 97.4 [degF] [facility] 04-15-2020 08:52-0500 BP Diastolic 85 mm[Hg] [facility] 04-15-2020 08:52-0500 BP Systolic 149 mm[Hg] [facility] 04-15-2020 08:52-0500 Pulse (Heart Rate) 68 /min [facility] 04-15-2020 08:52-0500 Pulse Oximetry 98 % [facility] 04-15-2020 08:52-0500 Respiratory Rate 18 /min [facility] [facility] 06:00-0500 Body weight 88.6 kg [facility] 04-14-2020 14:06-0500 Height 157.48 cm [facility] 04-13-2020 19:17-0500 BMI (Body Mass Index) 35.4 kg/m2 [facility] Encounters Encounter Date Encounter Type Care Provider Facility Start: 02-13-2024 End: 02-13-2024 ambulatory Mayte Stringer Facility:[facility] Start: 02-13-2024 End: 02-13-2024 Patient encounter procedure Mayte Stringer [facility] Start: 12-31-2023 End: 12-31-2023 ambulatory MAEGAN KESSLER Not Available Start: 10-01-2023 End: 10-01-2023 ambulatory CJ RODRIGUEZ Not Available Start: 08-25-2023 End: 08-25-2023 ambulatory [facility] Work Phone: Start: 08-25-2023 End: 08-25-2023 Patient encounter procedure [facility] Work Phone: Start: 06-04-2023 Chart abstracting Salena hatfield MD Work Phone: [facility] Start: 04-25-2023 End: 04-25-2023 ambulatory BARON Chacon GUERA Not Available Start: 03-28-2023 Patient encounter procedure Salena Enriquez MD Work Phone: [facility] Work Phone: Start: 03-28-2023 End: 03-28-2023 ambulatory CJ RODRIGUEZ Not Available Start: 10-09-2022 End: 10-09-2022 ambulatory Diana Gli Other [employer] Other Start: 10-09-2022 Office outpatient vi sit 25 minutes Diana Gil [facility] Start: 08-08-2022 End: 08-08-2022 ambulatory Cj Rodriguez Facility:[facility] Start: 08-08-2022 End: 08-08-2022 ambulatory DO Cj Rodriguez Work Phone: [facility] Work Phone: Start: 08-08-2022 End: 08-08-2022 Patient encounter procedure DO Cj Rodriguez Work Phone: [facility] [address] Work Phone: Start: 12-17-[address] CJ RODRIGUEZ Facil ity:[facility]1 Start: 04-23-2021 End: 05-19-[address] CJ RODRIGUEZ Facility:[facility] Start: 02-10-2021 End: 04-21-[address] CJ RODRIGUEZ Facility:[facility] Start: 05-24-2020 End: 05-24-2020 Patient encounter procedure Cj Rodriguez -Pre-Surgical Testing Start: 05-03-2020 Registered Recurring Cj Rodriguez -Wound Care [facility] Start: 04-13-2020 End: 04-15-2020 Evaluation and management of inpatient Cj Rodriguez -[facility] Start: 03-10-2020 End: 03-15-2020 Patient encounter procedure CONNOR WOLFF Facility:[facility] Procedures Date Procedure Procedure Detail Performing Clinician [...] Rodriguez Start: 03-07-2015 left total knee arthroplasty [employer] Bilateral cataracts (disorder) Mayte Orzech Cholecystectomy FRUCT Decompression of med torin nerve Mayte [employer] Herniation of rectum into vagina (disorder) Mayte Orzech History of bypass of stomach Mayte [employer] History of tonsillectomy Aur ora Orzech History of total hysterectomy Mayte [employer] Screening for malign ant neoplasm of colon Diana Gil Other Plan of Treatment Date Care Activity Detail Author Start: 03-28-2024 Medicare Annual Well ness (AWV) Medicare Annual Wellness (AWV) [facility] Start: 10-01-2023 End: 10-01-2023 Patient encounter procedure 10/01/2023 1:45 PM EDT Office Visit [facility] [address] [place] [id number] Cj Rodriguez DO [address] [place] [address] [facility] Start: 12-21-2022 Influenza vaccination Influenza Vacc ine (#1) [facility] Patient referral [facility] Immunizations Immunization Date Immunization Notes Care Provider [facility] 12-21-2021 influenza virus vacc ine, unspecified formulation Salena Enriquez MD Work Phone: [facility] 04-26-2021 SARS-CoV-2 (COVID-19 ) mRNA-1273 vaccine Mayte Orzech [facility] 03-08-2021 influenza virus vacc ine, unspecified formulation Mayte Orzech [facility] 06-21-2020 SARS-CoV-2 (COVID-19 ) mRNA-1273 vaccine Mayte Orzech [facility] 05-24-2020 SARS-CoV-2 (COVID-19 ) mRNA-1273 vaccine Mayte Orzech [facility] 12-06-2019 influenza virus vacc ine, unspecified formulation Mayte Orzech [facility] 12-06-2019 pneumococcal conjuga te vaccine, 13 valent Salena Enriquez MD Work Phone: [facility] 01-08-2019 influenza virus vacc ine, unspecified formulation Mayte Orzech [facility] 02-08-2018 influenza virus vacc ine, unspecified formulation Mayte Orzech [facility] 02-07-2017 influenza virus vacc ine, unspecified formulation Mayte Orzech [facility] 01-04-2016 influenza virus vacc ine, unspecified formulation Mayte Stringer [facility] 02-24-2015 pneumococcal conjuga te vaccine, 13 urvashi Enriquez MD Work Phone: [facility] 04-22-2012 pneumococcal polysaccharide vaccine, 23 valkeyur Enriquez MD Work Phone: [facility] 10-25-2010 zoster vaccine, live Salena Enriquez MD Work Phone: [facility] Healthcare Payers Date Payer Category Payer Unknown AARP AARP [id number] 2022-Present [address] [place] [address] [id number] 2015 Private Health Insurance [id number] 2003 Medicare MEDICARE MEDICAR E PART B [id number] 2003-Present [address] [address] [place] [address] Medicare [id number] 1959 Medicare [id number] 1959 Self-pay [id number] 1959 Unknown [id number] 1938 Unknown [id number] 1938 Unknown [id number]. 593 1938 Unknown [id number]. 593 1938 Unknown [id number]. 593 1938 Unknown [id number]. 1259 1938 Unknown [id number] [id number]. 9 1938 Unknown [id number]. 9 1938 Unknown [id number] [id number]. 1258 1938 Unknown [id number]. 1258 1938 Unknown [id number] 727 Unknown [id number] 531 Social History Date Type Detail Facility Start: 05-24-2020 End: 08-25-2023 Tobacco smoking status [facility] Ex-smoker (finding) [facility] Start: 1940 Sex Assigned At Female F [facility] Start: 03-28-2023 Sex Assigned At N [facility] [employer] Other End: 04-22-2019 History of tobacco use [...] file [facility] Tobacco smoking status [facility] Goals Date Patient Goal Desired Activity /State Functional Status Date Assessment Result Facility 04-15-2020 Functional status Patient at [facility] Mental Status Date Assessment Result Facility 04-15-2020 Cognitive function Cognitive Sta tus Patient at Baseline [facility] Hospital Discharge instructions 02-10-2024 Note Date & Type Note Facility 02-10-2024 Hospital Discharg e instructions Follow Up Care 02/10/2024 12:11:26 With:FIENSSE Stringer APRN, Mayte Zheng, MALU, URL Address: When: Unknown [facility] [place] Evaluation note 10-09-2022 Note Date & Type [...] understanding and is agreeable to treatment plan [employer] Other Evaluation + Plan note Note Date & Type Note Facility Evaluation + Plan note No data available for this section [facility] Evaluation note Note Date & Type Note Facility Evaluation note No assessment information availa ble [facility] Work Phone: History general Narrative - Reported Note Date & Type Note Facility History general Narrative - Reported Type Medical History dementia Medical History neuropathy Surgical History tonsillectomy Surgical History hysterectomy Hospitalization History see above [employer] Other Progress note Note Date & Type Note Facility Progress note No data available for this section [facility] Summary Purpose Family History No Family [...] Documents on File Type Date Recorded 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 Name: Shweta Gallegos Admitted: 03/09/2020 Discharged: [...] in hematoma. The patient initially presented to [facility] and was transferred to [facility] for evaluation by Orthopedics. The patient was [...] and content) DATE CREATED AUTHOR 04/07/2020 [facility] DATE CREATED AUTHOR AUTHOR'S ORGANIZ ATION 12/17/2021 [facility] DATE CREATED AUTHOR AUTHOR'S ORGANIZ ATION 09/04/2022 [facility] DATE CREATED AUTHOR AUTHOR'S ORGANIZ ATION 01/02/2024 [facility] EPIC DATE CREATED AUTHOR AUTHOR'S ORGANIZ ATION 02/15/2024 [facility] Care Teams (unrecognized sec tion and content) Team Status: Active Member Role Status Dates Cj Rodriguez DO Primary Care Provider Active Team Status: Inactive Member Role Status Dates Cj Rodriguez DO Primary Care Provider, Attending Mimi frye 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 [facility]. provides no warranty or guarantee of the accuracy or completeness of information in this document.
--- NOTE | 2024-03-06 09:52 | CA_ITS ---
Patient Name: CHIARA GALLEGOS MR#: [id number] : 1940 Exam Date: 03/06/2024 Ordering Doctor: DR Oral Pete . ECHOCARDIOGRAM REPORT PROCEDURE: CA ECHO DOPPLER COMPLETE INDICATIONS: Dyspnea COMPARISON: None. DESCRIPTION: COMPLETE ECHOCARDIOGRAM Real-time transthoracic echocardiography with 2D, M-mode, spectral and color flow Doppler performed. QUALITY: Technical quality was good. LEFT VENTRICLE: Normal chamber size. Mild increase in left ventricle brady thickness. LV EF: Normal left ventricular ejection fraction, 65%. No regional wall motion abnormalities DIASTOLIC: Normal diastolic function. ATRIAL SEPTUM: Appears intact LEFT ATRIUM: Normal chamber size. RIGHT ATRIUM: Normal chamber size. RIGHT VENTRICLE:Normal chamber size. Normal right ventricular systolic function. TRICUSPID VALVE:Normal mobility and thickness. No stenosis with trivial regurgitation. No evidence of pulmonary hypertension. RVSP 33 mmHg MITRAL VALVE: Normal mobility and thickness. No evidence of mitral valve stenosis. There is no mitral annular calcification. Trivial mitral regurgitation. AORTIC VALVE: Normal trileaflet appearance. Normal leaflet mobility. No evidence of aortic valve stenosis. Multi focal calcifications. Mild aortic regurgitation. AORTIC ROOT: Normal diameter and appearance. 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 No stenosis. No regurgitation. PERICARDIUM: No evidence of pericardial effusion. IVC: Not well visualized. PLEURA: CONCLUSION: Normal left ventricle chamber size. Mild increase in left ventricle brady thickness. Normal left ventricular ejection fraction, 65%. No regional wall motion abnormalities Normal diastolic function Normal right ventricular size and systolic function No evidence of pulmonary hypertension. RVSP 33 mmHg Mild aortic regurgitation. Adult Echocardiography Procedure Report Left Ventricle LVEDD (3.7 - 5.6 cm): 4.09 cm LVESD (2.2 - 4.0 cm): 3.14 cm LVIVS thickness (0.6 - 1.2 cm): 1.45 cm LVPW thickness (0.5 - 1.0 cm): 1.13 cm e': 0.06 m/s E - e': 9.87 LVOT Max Gradient: 4.02 mm[Hg] LVOT Area (cm2): 1.00 m/s Peak Velocity (LVOT): 1.00 m/s Mean Velocity (LVOT): 0.72 m/s LVOT Diameter 2.03 cm Left Ventricular Ejection Fraction: Left Atrium LA Volume Index (2D A2C): 28.00 ml/m2 Left Atrium Systolic Dimension: 3.88 cm Mitral Valve MV E to A Ratio: 0.67 MV Max Gradient: MV Mean Gradient: Mitral Valve A-Wave Peak Velocity: 0.84 m/s Mitral Valve E-Wave Peak Velocity: 0.57 m/s Cardiovascular Orifice Area: Right Ventricle RV Internal Diastolic Dimension: Aorta AO Root Diam: 3.20 cm Ascending Ao Diam: 3.03 cm Aortic Valve AoV Area (Peak Andre): 2.53 cm2, 2.53 cm2 AoV Area (VTI): 2.37 cm2, 2.37 cm2 Deceleration [place]: Pressure Half-Time: Peak Velocity(Antegrade Flow): 1.29 m/s Peak Gradient(Antegrade Flow): 6.63 mm[Hg] Mean Velocity(Antegrade Flow): 0.88 m/s Mean Gradient(Antegrade Flow): 3.51 mm[Hg] Velocity Time Integral: 28.57 cm Tricuspid Valve Peak Velocity (Regurgitant Flow): 2.76 m/s Peak Velocity: Pulmonic Valve Mean Gradient: 1.34 mm[Hg] Mean Velocity: 0.54 m/s Peak Velocity: 0.80 m/s, 0.81 m/s Peak Gradient: 2.63 mm[Hg], 2.58 mm[Hg] Right Atrium Right Atrium Systolic Pressure: 34.92 ml, 34.92 ml Dictated by: Jeny Anderson MD on 03/09/2024 at 17:47 Approved by: Jeny Anderson MD on 03/09/2024 at 17:58
--- NOTE | 2024-03-06 09:55 | P.HP_ITS ---
HPI H&P: HPI History of Present Illness Chief complaint: CHEST PAIN Narrative: Patient with no significant past heart history presented to the emergency room with increasing chest pain, started that morning. Progressively worse throughout the morning. Radiating up into the jaw. Some shortness of breath. No diaphoresis, no nausea. Still had chest pain upon arrival to ER but by the time I saw her in the emergency room the chest pain had resolved. Based on her age and risk factors with the chest pain she will be admitted for workup and treatment of same Opioid HPI Opioid Management Most Recent Pain and Opioid Data: Last Pain Scale 3 03/06/24 06:30 03/06/24 Review of Systems ROS Status of ROS 10 or more systems reviewed and unremark able except as noted in history and below [facility] History (Updated 03/06/24 @ 08:32 by Benoit Martin MD) Tremors of nervous system ?R25.1 - Tremor, unspecified (ICD-10) Depression ?F32.A - Depression, unspecified (ICD-10) Incontinence ?R32 - Unspecified urinary incontinence (ICD-10) High cholesterol ?E78.00 - Pure hypercholesterolemia, unspecified (ICD-10) Dementia ?F03.90 - Unspecified dementia, unspecified severity, without behavioral disturbance, psychotic disturbance, mood disturbance, and anxiety (ICD-10) Surgical History (Updated 03/24/23 @ 15:14 by Marlena Quiroz) Left knee injury ?S89.92XA - Unspecified injury of left lower leg, initial encounter (ICD-10) FH: total abdominal hysterectomy and bilateral salpingo-oophorectomy ?Z84.2 - Family history of other diseases of the genitourinary system (ICD- 10) Hx laparoscopic cholecystectomy ?Z90.49 - Acquired absence of other specified parts of digestive tract (ICD- 10) Family History (Updated 03/24/23 @ 15:15 by Marlena Quiroz) Father Family history of CHF (congestive heart failure) Family history of COPD (chronic obstructive pulmonary disease) Grandmother Family history of cancer Social History (Updated 03/24/23 @ 15:17 by Marlena Quiroz) Within the past year, how often did you have a drink containing alcohol: monthly or less Smoking status: Former smoker Non-prescribed substance use: denies use Previous occupational history: retired Highest level of school completed/degree received: high school graduate Are you now , , , , never or living with a partner: Little interest or pleasure in doing things: not at all Feeling down, depressed, or hopeless: not at all Feel stressed/tense/nervous/anxious/difficulty sleeping: not at all Do you think of yourself as: straight/heterosexual Gender Identity: female Meds Home Medications and Allergies Home Medications ?Medication ?Instructions ?Recorded ?Confirmed ?Type aripiprazole 2 mg tablet 2 mg PO QDAY 03/24/23 03/06/24 History atorvastatin 20 mg tablet 20 mg PO QDAY 03/24/23 03/06/24 History cyanocobalamin (vitamin B-12) 1,000 mcg PO DAILY 03/24/23 03/06/24 History 1,000 mcg tablet (Vitamin B-12) gabapentin 300 mg capsule 300 mg PO Q8H 03/24/23 03/06/24 History memantine 5 mg tablet 5 mg PO QDAY 03/24/23 03/06/24 History oxybutynin chloride 5 mg tablet 5 mg PO Q12H 03/24/23 03/06/24 History venlafaxine 150 mg 150 mg PO QDAY 03/24/23 03/06/24 History capsule,extended release 24 hr venlafaxine 75 mg capsule,extended 75 mg PO QDAY 03/24/23 03/06/24 History release 24 hr clobetasol 0.05 % topical ointment 1 applic topical BID 03/06/24 03/06/24 History estradiol 0.01% (0.1 mg/gram) 1 appful vaginal DAILY 03/06/24 03/06/24 History vaginal cream Allergies Allergy/AdvReac Type Severity Reaction Status Date / Time No Known Drug Allergies Allergy Verified 03/06/24 06:38 Exam Constitutional Vital Signs, click to edit/add: Last Vital Signs Temp 97.9 F 03/06/24 05:53 Pulse 61 03/06/24 08:16 Resp 19 03/06/24 08:16 BP 127/55 03/06/24 08:16 Pulse Ox 95 03/06/24 08:16 O2 Del Method Room Air 03/06/24 05:53 Respiratory Common normals: normal respiratory effort and no retractions Cardio Common normals: regular rate and regular rhythm GI Common normals: Normal to inspection, nondistended, normoactive bowel sounds present Back & Pelvis Common normals: thoracic and lumbar spine normal to inspection Extremity Common normals: normal to inspection, full ROM, normal capillary refill and no clubbing, cyanosis or edema Results Labs Labs: Short CBC 03/06/24 Range/Units 06:10 WBC 6.7 (4.0-11.0) 10^3/uL Hgb 12.0 (12.0-16.0) g/dL Hct 36.7 (36.0-48.0) % Plt Count 286 (150-450) 10^3/uL BMP 03/06/24 06:10 Sodium 144 Potassium 4.0 Chloride 107 Carbon Dioxide 28.5 BUN 11.0 Creatinine 0.80 Glucose 97 Calcium 9.0 Assessment and Plan Assessment and Plan (1) Chest pain: (2) Depression: (3) Dementia: (4) High cholesterol: (5) Incontinence: Plan Admission findings: Mild bradycardia, uncontrolled hypertension secondary to chest pain-no EKG changes. Admit for cycling cardiac markers and echocardiogram Chest pain-Risk factor of hypertension and hypercholesterolemia-check echocardiogram cardiogram and serial cardiac markers. Dementia-continue with home medications-patient likely to deteriorate while in the hospital Depression-continue with home medications bladder spasms-continue with home medications admission status: Patient with acute onset of chest pain which is now resolved, medically necessary treatment will likely span 1 midnight. Observation status.
[2024-03-06 10:44] LABS: Troponin I High Sensitivity 9.8 pg/mL (4.0-51.3)
[2024-03-06 10:48] LABS: Thyroid Stimulating Hormone 1.701 uIU/mL (0.358-3.740)
[2024-03-06 11:06] LABS: Bilirubin Urine NEGATIVE (NEGATIVE); Blood Urine NEGATIVE (NEGATIVE); Clarity Urine CLEAR (CLEAR); Color Urine LT. YELLOW (YELLOW); Glucose Urine UA NEGATIVE (NEGATIVE); Ketones Urine NEGATIVE (NEGATIVE); Leukocyte Esterase Urine MODERATE (NEGATIVE); Nitrite Urine NEGATIVE (NEGATIVE); Protein Urine NEGATIVE (NEG/TRACE); Specific Gravity Urine <=1.005 (1.005-1.025)
[2024-03-06 11:15] LABS: Bacteria Urine TRACE #/HPF (NONE SEEN); Mucus Urine NONE SEEN (NONE SEEN); RBC Urine NONE SEEN #/HPF (0-2); Squamous Epithelial Cell Urine FEW #/LPF (NONE/RARE)
[2024-03-06 11:16] LABS: Cast Seen? NONE SEEN #/LPF (NONE SEEN); Crystals Seen? None Seen #/HPF (None Seen); Urine Culture Indicated YES
[2024-03-06] MEDS: ASPIRIN 81 MG TABLET.DR PO (11:57)
[2024-03-06] MEDS: ARIPIPRAZOLE 2 MG TABLET PO (11:57)
[2024-03-06] MEDS: VENLAFAXINE HCL ER 75 MG CAPSULE PO (11:57)
[2024-03-06] MEDS: MEMANTINE HCL 7 MG CAP XR 14 MG PO (11:57)
[2024-03-06] MEDS: VENLAFAXINE HCL ER 150 MG CAPSULE PO (11:57)
[2024-03-06] MEDS: OXYBUTYNIN chloride 5 MG TABLET PO ×2 (11:57→21:57)
--- NOTE | 2024-03-06 13:13 | CM.NOTE ---
Case Management in to see pt to discuss PT recommendations, Cardiopulmonary at bedside completing cardiac echo. Case Management will go back to see pt when procedure completed.
[2024-03-06 13:29] LABS: Troponin I High Sensitivity 9.3 pg/mL (4.0-51.3)
[2024-03-06] MEDS: GABAPENTIN 300 MG CAPSULE PO ×2 (13:48→21:57)
[2024-03-06] MEDS: FLU VACC QS2024(65UP)/MF59C/PF 60 MCG/0.5 ML SYRINGE IM (13:48)
--- NOTE | 2024-03-06 14:07 | CM.NOTE ---
Attempted to contact pt's daughter to set up HH services, no answer.
--- NOTE | 2024-03-06 14:31 | CM.NOTE ---
Called pt's daughter regarding HH services, pt unable to get into contact with and daughter did not want to make a decision without speaking with her father. Daughter states in the past she has set up [employer] Whe[employer] d/t her mother's dementia and decline in eating. had cancelled services and did not think Meals [employer] Whe[employer] had been beneficial. Daughter states her mother has had a weight gain d/t unhealthy eating at home. Daughter has tried to encourage her parents to bring in services for assistance at home but they have been resistant. Daughter will reach out to her father to discuss HH services.
--- NOTE | 2024-03-06 14:39 | CM.NOTE ---
Daughter called back and spoke with pt's and they are in agreement with HH services, list provided and will go with [facility] HH services.
--- NOTE | 2024-03-06 14:42 | SWNOTE1 ---
See case management note, referral being sent to [address]
--- NOTE | 2024-03-06 14:48 | CM.NOTE ---
Faxed Referral to [address], Case Management referral, face sheet, and physician notes.
--- NOTE | 2024-03-06 15:12 | CM.NOTE ---
[facility] able to accept pt.
--- NOTE | 2024-03-06 15:45 | SWNOTE1 ---
Pt will be discharge with [address] SW took packet to the floor for nurse to send dc orders to [address] once pt is medically stable for dc.
[2024-03-06] MEDS: ATORVASTATIN CALCIUM 20 MG TABLET PO (21:57)
[2024-03-06] MEDS: TEMAZEPAM 15 MG CAPSULE PO (23:51)
[2024-03-07] VITALS (10 sets, daily range): BP systolic 139–144; BP diastolic 77–82; PULSE 50–72; TEMP 36.5; O2SAT 92–96
[2024-03-07] MEDS: GABAPENTIN 300 MG CAPSULE PO (06:05)
[2024-03-07 06:52] LABS: Basophils Percent Auto 0.3 % (0.2-2.0); Eosinophils Absolute Auto 0.3 10^3/uL (0.0-0.7); Eosinophils Percent Auto 5.2 % (0.9-7.0); Immature Granulocytes Abs Auto 0.01 10^3/uL (0.00-0.03); Immature Granulocytes Pct Auto 0.2 % (0.0-0.5); Lymphocytes Absolute Auto 2.4 10^3/uL (1.2-3.8); Lymphocytes Percent Auto 39.4 % (20.5-60.0); Mean Corpuscular HGB Conc 32.4 g/dL (29.9-35.2); Mean Corpuscular Hemoglobin 30.1 pg (26.7-34.0); Mean Corpuscular Volume 92.7 fL (81.0-99.0); Mean Platelet Volume 9.2 fL (9.5-13.5); Monocytes Absolute Auto 0.6 10^3/uL (0.3-0.8); Neutrophils Absolute Auto 2.7 10^3/uL (1.4-6.5); Neutrophils Percent Auto 44.9 % (43.0-75.0); Platelet Count 268 10^3/uL (150-450); Red Blood Count 3.99 10^6/uL (4.20-5.40); Red Cell Distribution Width 13.9 % (11.0-15.0)
[2024-03-07 07:13] LABS: Anion Gap 11.4; BUN Creatinine Ratio 12.7; Calcium 8.8 mg/dL (8.5-10.1); Carbon Dioxide 29.5 mmol/L (21.0-32.0); Chloride 107 mmol/L (98-107); Estimated GFR (African America >60 (>=60 mL/min/1.73m^2); Estimated GFR (Non-African Ame >60 (>=60 mL/min/1.73m^2); Glucose 95 mg/dL (74-106); Potassium 3.9 mmol/L (3.5-5.1); Sodium 144 mmol/L (136-145); Troponin I High Sensitivity 10.2 pg/mL (4.0-51.3)
--- NOTE | 2024-03-07 08:07 | P.DS_ITS ---
DS: Providers Provider Date of admission: 03/06/24 09:04 Primary care physician: CJ RODRIGUEZ Admitting clinician: Oral Weaver Consults: 03/06/24 09:50 Occupational Therapy Eval and Treat Routine Reason for consultation: Only if needed for Rehab Has provider been notified: No Physical Therapy Eval and Treat Routine Reason for consultation: Eval and Treat Has provider been notified: No Discharging clinician: Veronica Savage DS: Diagnosis Discharge Diagnosis (1) Chest pain: (2) Depression: (3) Dementia: (4) High cholesterol: (5) Incontinence: DS: Summary Hospital Course Hospital Course: Patient presented to the ER yesterday for substernal chest pain that was radiating. When she was in the ER her Chest pain resolved. Her troponin x 4, along with proBNP have been normal range, no EKG changes and BMP, CBC all normal. She did get an echocardiogram and the results are pending. She is already taking a statin medication. At the time of discharge she is not having chest pain. She is tearful and wants to go home. I am in agreement with this. Patient has dementia and wants to be in her home environment. She is to follow up with her PCP for final Echo results. She is continue her home medications. She has a positive UA, will await for culture results. Patient no symptoms, afebrile, and normal WBC's. Feel this specimen was contaminant. So feel the risks outweigh the benefit of antibiotics at this time. She is to return to the ER with any worsening signs or symptoms. Status at Discharge Functional status at discharge: independent ambulation Overall status at discharge: patient is back to baseline Time Spent with Patient Time attestation: Total time spent providing and/or coordinating discharge services: Time spent: greater than 30 minutes Exam Narrative Exam Narrative: General: Patient is alert, and oriented to person, place Skin: no visible rashes, or ulcers Head: atraumatic, acephalic Eyes: PERRLA, no nystagmus present, conjunctiva clear, no scleral icterus Ears: normal gross auditory acuity Heart: Normal rate and rhythm, no murmurs/rubs/gallops Lungs: no audible wheezes, crackles and normal breath sounds all lung barrett Abdomen: Normal audible bowel sounds, no distension, No palpable masses, no organomegaly, no rebound/guarding/ or rigidity Musculoskeletal: no swelling bilateral lower extremities Neuro: CN II-X grossly intact, normal sensation upper and lower extremities Constitutional Vital Signs, click to edit/add: Last Vital Signs Temp 97.7 F 03/07/24 03:30 Pulse 50 L 03/07/24 06:00 Resp 18 03/07/24 03:30 BP 139/82 03/07/24 03:30 Pulse Ox 94 L 03/07/24 05:26 O2 Del Method Room Air 03/07/24 05:26 DS: Data Data Completed and Pending Labs on day of discharge: Labs from last 24 hours 03/07/24 03/06/24 03/06/24 06:15 13:05 10:08 WBC 6.0 RBC 3.99 L Hgb 12.0 Hct 37.0 MCV 92.7 MCH 30.1 MCHC 32.4 RDW 13.9 Plt Count 268 MPV 9.2 L Neut % (Auto) 44.9 Lymph % (Auto) 39.4 [place] % (Auto) 10.0 Eos % (Auto) 5.2 Baso % (Auto) 0.3 Neut # (Auto) 2.7 Lymph # (Auto) 2.4 [place] # (Auto) 0.6 Eos # (Auto) 0.3 Baso # (Auto) 0.0 Abs Immat Gran (auto) 0.01 Imm/Tot Granulo (auto) 0.2 Sodium 144 Potassium 3.9 Chloride 107 Carbon Dioxide 29.5 Anion Gap 11.4 BUN 9.0 Creatinine 0.71 Est GFR ( Amer) >60 Est GFR (Non-Af Amer) >60 BUN/Creatinine Ratio 12.7 Glucose 95 Calcium 8.8 Troponin I High Sens 10.2 9.3 9.8 NT-Pro-B Natriuret Pep 246.0 274.0 TSH 1.701 Urine Color Urine Clarity Urine pH Ur Specific [place] Urine Protein Urine Glucose (UA) Urine Ketones Urine Occult Blood Urine Nitrite Urine Bilirubin Urine Urobilinogen Ur Leukocyte Esterase Urine RBC Urine WBC Ur Squamous Epith Cells Urine Crystals Urine Bacteria Urine Casts Urine Mucus Ur Culture Indicated? 03/06/24 06:23 WBC RBC Hgb Hct MCV MCH MCHC RDW Plt Count MPV Neut % (Auto) Lymph % (Auto) [place] % (Auto) Eos % (Auto) Baso % (Auto) Neut # (Auto) Lymph # (Auto) [place] # (Auto) Eos # (Auto) Baso # (Auto) Abs Immat Gran (auto) Imm/Tot Granulo (auto) Sodium Potassium Chloride Carbon Dioxide Anion Gap BUN Creatinine Est GFR ( Amer) Est GFR (Non-Af Amer) BUN/Creatinine Ratio Glucose Calcium Troponin I High Sens NT-Pro-B Natriuret Pep TSH Urine Color Lt. yellow Urine Clarity Clear Urine pH 7.0 Ur Specific [place] <=1.005 A Urine Protein Negative Urine Glucose (UA) Negative Urine Ketones Negative Urine Occult Blood Negative Urine Nitrite Negative Urine Bilirubin Negative Urine Urobilinogen 1.0 Ur Leukocyte Esterase Moderate A Urine RBC None seen Urine WBC 10-20 A Ur Squamous Epith Cells Few A Urine Crystals None seen Urine Bacteria Trace A Urine Casts None seen Urine Mucus None seen Ur Culture Indicated? Yes Discharge Plan Discharge Disposition: Home Health Service Condition: Fair Discharge Medications: Continued aripiprazole 2 mg tablet 2 mg PO QDAY atorvastatin 20 mg tablet 20 mg PO QDAY gabapentin 300 mg capsule 300 mg PO Q8H memantine 5 mg tablet 5 mg PO QDAY oxybutynin chloride 5 mg tablet 5 mg PO Q12H venlafaxine 150 mg capsule,extended release 24hr 150 mg PO QDAY venlafaxine 75 mg capsule,extended release 24hr 75 mg PO QDAY cyanocobalamin (vitamin B-12) [Vitamin B-12] 1,000 mcg tablet 1,000 mcg PO DAILY Activity: increase activity as tolerated Diet: advance to your usual diet Print Language: Tamazight Patient Instructions: Chest Pain (DC) 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 Phone number is [phone], they should start care within 48 hours of discharge. Forms: Portal Instructions Follow Up Appointments: call saturday for appointment with dr weaver PCP to discuss ECHO Discharge Date/Time: 03/07/24 12:25 Discharge location: Home with [facility]
[2024-03-07] MEDS: ASPIRIN 81 MG TABLET.DR PO (09:34)
[2024-03-07] MEDS: MEMANTINE HCL 7 MG CAP XR 14 MG PO (09:34)
[2024-03-07] MEDS: VENLAFAXINE HCL ER 75 MG CAPSULE PO (09:34)
[2024-03-07] MEDS: VENLAFAXINE HCL ER 150 MG CAPSULE PO (09:34)
[2024-03-07] MEDS: OXYBUTYNIN chloride 5 MG TABLET PO (09:34)
[2024-03-07] MEDS: ARIPIPRAZOLE 2 MG TABLET PO (09:35)
--- NOTE | 2024-03-09 11:57 | CM.DCFOLLOWU ---
Person spoke with: Shweta How are you feeling? Much better How is your pain? No pain Did you understand your discharge instructions? Yes Do you have any questions about your discharge instructions? No Were you given any prescriptions at discharge? No Were you able to get your prescriptions filled? N/A Do you understand how to take your medications as ordered? Yes Do you have any questions about your follow up appointment and do you plan to keep your follow up appointment? I will call today to schedule Is there anything else that you would like to discuss? No Questions/Comments/Concerns/Other:
== END 2024-03-07 12:25 | disposition home health service (06) ==
LOC: ER 08:32 → MS 09:09
PROVIDERS: Family Medicine; Admitting Provider Family Medicine; Emergency Provider Emergency Medicine; PCP Internal Medicine; Visit Provider Family Medicine
DX: R07.9 Chest pain, unspecified (principal); F32.A Depression, unspecified; F03.90 Unspecified dementia, unspecified severity, without behavioral disturbance, psychotic disturbance, mood disturbance, and anxiety; E78.00 Pure hypercholesterolemia, unspecified; N32.89 Other specified disorders of bladder; R00.1 Bradycardia, unspecified; I10 Essential (primary) hypertension; R32 Unspecified urinary incontinence; R06.02 Shortness of breath; Z79.899 Other long term (current) drug therapy; Z87.891 Personal history of nicotine dependence; Z23 Encounter for immunization
CPT/HCPCS: 36415; 71045; 80048; 81001; 83880; 84443; 84484; 85025; 87086; 90662; 93005; 93306; 94761; 97161; 97165; 99285; G0008; G0378

== ENCOUNTER 2025-01-10 04:51 | Emergency (ER) | payer MEDICARE, SELFPAY ==
[2025-01-10 04:56] VITALS: PULSE 58
--- NOTE | 2025-01-10 04:57 | ECG_ITS ---
The [facility] Test Date: 2025-01-10 Pat Name: CHIARA GALLEGOS Department: Room: - Gender: Female Injection Molder: : 1940 Requested By: [id number] Order Number: [id number] Reading MD: TROY MACIAS M.D. Measurements Intervals [place] Rate: 58 P: 49 OK: 196 QRS: -62 QRSD: 86 T: 41 QT: 424 QTc: 420 Interpretive Statements 1100 Sinus rhythm 2630 Left anterior fascicular block 8003 Consistent with pulmonary disease 9150 abnormal ECG Compared to ECG 03/06/2024 05:52:45 No significant changes Electronically Signed On 01-10-2025 13:56:46 EDT by TROY MACIAS M.D.
--- NOTE | 2025-01-10 04:57 | XR_ITS ---
The [address] [address] Patient Name: CHIARA GALLEGOS MRN: [id number] date: 1940 Sex: F Assigned Patient Location: ED.MAIN Current Patient Location: Accession/Order Number: [id number] Exam Date: 01/10/2025 05:10 Report Date: 01/10/2025 09:26 At the request of: REBECCA SOL DO Procedure: XR chest 1V PA CHEST: CLINICAL HISTORY: CP COMPARISON: 03/06/2024 Mildly enlarged cardiomediastinal silhouette. Lungs are clear. No effusion or pneumothorax. XR/XR chest 1V IMPRESSION: NEGATIVE CHEST. Impression dictated by: Azam France M.D. 01/10/2025 9:26 AM Dictation Location: [place] [address] Electronically authenticated by: [id number] Y Date: 01/10/2025 09:26
[2025-01-10 04:59] VITALS: BP 149/100; PULSE 62; TEMP 36.9; O2SAT 97; BMI 30.4
--- NOTE | 2025-01-10 05:01 | ED.GENADUL1 ---
HPI HPI - General Adult General Chief complaint: Chest Pain Stated complaint: chest pain Time Seen by Provider: 01/10/25 04:54 History of Present Illness HPI narrative: Patient is an 84-year-old female presenting to the emergency department via EMS from home for concerns of chest pain. Patient has a history of Alzheimer's dementia, otherwise has no known medical conditions. No history of cardiac disease. Patient lives at home with her . Patient's history is somewhat limited secondary to her Alzheimer's dementia. She states she has been having left-sided chest pressure/pain on and off for the last 2 weeks, acutely worsened earlier tonight. She denies any nausea or vomiting. No fevers or chills. No abdominal pain or shortness of breath. She denies any constipation or diarrhea. No melena or hematochezia. No dysuria or hematuria. No history of recent falls or trauma. Related Data Home Medications ?Medication ?Instructions ?Recorded ?Confirmed aripiprazole 2 mg tablet 2 mg PO QDAY 03/24/23 01/10/25 atorvastatin 20 mg tablet 20 mg PO QDAY 03/24/23 01/10/25 cyanocobalamin (vitamin B-12) 1,000 mcg PO DAILY 03/24/23 03/06/24 1,000 mcg tablet (Vitamin B-12) gabapentin 300 mg capsule 300 mg PO Q8H 03/24/23 01/10/25 memantine 5 mg tablet 5 mg PO QDAY 03/24/23 03/06/24 oxybutynin chloride 5 mg tablet 5 mg PO Q12H 03/24/23 01/10/25 venlafaxine 150 mg 150 mg PO QDAY 03/24/23 03/06/24 capsule,extended release 24 hr venlafaxine 75 mg capsule,extended 75 mg PO QDAY 03/24/23 03/06/24 release 24 hr Allergies Allergy/AdvReac Type Severity Reaction Status Date / Time No Known Drug Allergies Allergy Verified 01/10/25 05:02 Opioid HPI Opioid Management Most Recent Opioid Data: Last Pain Scale 0 03/07/24, 10:25 Last Pain Intensity 0 03/06/24, 11:14 Last ORT Total Score 1 03/06/24, 11:29 Last ORT Risk Category Low Risk 03/06/24, 11:29 Review of Systems ROS Status of ROS 10 or more systems reviewed and unremarkable except as noted in history and below [facility] Medical History (Updated 01/10/25 @ 06:11 by Bernard Molina DO) Tremors of nervous system ?R25.1 - Tremor, unspecified (ICD-10) Depression ?F32.A - Depression, unspecified (ICD-10) Incontinence ?R32 - Unspecified urinary incontinence (ICD-10) High cholesterol ?E78.00 - Pure hypercholesterolemia, unspecified (ICD-10) Dementia ?F03.90 - Unspecified dementia, unspecified severity, without behavioral disturbance, psychotic disturbance, mood disturbance, and anxiety (ICD-10) Surgical History (Updated 03/24/23 @ 15:14 by Marlena Quiroz) Left knee injury ?S89.92XA - Unspecified injury of left lower leg, initial encounter (ICD-10) FH: total abdominal hysterectomy and bilateral salpingo-oophorectomy ?Z84.2 - Family history of other diseases of the genitourinary system (ICD-10) Hx laparoscopic cholecystectomy ?Z90.49 - Acquired absence of other specified parts of digestive tract (ICD-10) Family History (Updated 03/06/24 @ 10:40 by Quin Guerin) Father Family history of CHF (congestive heart failure) Family history of COPD (chronic obstructive pulmonary disease) Family history of myocardial infarction Grandmother Family history of cancer Social History (Updated 03/24/23 @ 15:17 by Marlena Quiroz) Within the past year, how often did you have a drink containing alcohol: monthly or less Smoking status: Former smoker Non-prescribed substance use: denies use Previous occupational history: retired Highest level of school completed/degree received: high school graduate Are you now , , , , never or living with a partner: Little interest or pleasure in doing things: not at all Feeling down, depressed, or hopeless: not at all Feel stressed/tense/nervous/anxious/difficulty sleeping: not at all Do you think of yourself as: straight/heterosexual Gender Identity: female Exam Narrative Exam Narrative: CONSTITUTIONAL: Well-appearing, no acute distress, oriented x 3, answering questions and following commands appropriately SKIN: Was warm and dry, no rashes. EYES: Sclerae white. No conjunctival pallor EARS, NOSE, THROAT: Moist oral mucosa. No JVD RESPIRATORY: Clear to auscultation bilaterally, no wheezes, crackles, or stridor, no use of accessory muscles CARDIOVASCULAR: Normal rate and regular rhythm. There is no S3, S4, murmur, rub. GASTROINTESTINAL: Abdomen is soft, nontender, and nondistended. No rebound tenderness or guarding. MUSCULOSKELETAL: No peripheral edema. NEUROLOGIC: Patient is awake and alert. Moving all extremities equally. Facies were symmetrical. Constitutional Vital Signs, click to edit/add: Last Vital Signs Temp 98.4 F 01/10/25 04:59 Pulse 62 01/10/25 04:59 Resp 16 01/10/25 04:59 BP 149/100 H 01/10/25 04:59 Pulse Ox 97 01/10/25 04:59 O2 Del Method Room Air 01/10/25 04:59 Course Vital Signs Vital signs: Vital Signs Temperature 98.4 F 01/10/25 04:59 Pulse Rate 62 01/10/25 04:59 Respiratory Rate 16 01/10/25 04:59 Blood Pressure 149/100 H 01/10/25 04:59 Pulse Oximetry 97 01/10/25 04:59 Oxygen Delivery Method Room Air 01/10/25 04:59 Temperature 98.4 F 01/10/25 04:59 Pulse Rate 62 01/10/25 04:59 Respiratory Rate 16 01/10/25 04:59 Blood Pressure 149/100 H 01/10/25 04:59 Pulse Oximetry 97 01/10/25 04:59 Oxygen Delivery Method Room Air 01/10/25 04:59 Medical Decision Making MDM Narrative Medical decision making narrative: Patient is an 84-year-old female presenting to the emergency department via EMS from home for concerns of 2 weeks of intermittent chest pain, acutely worsening earlier tonight. According to her , who just presented to the bedside, she has been having similar episodes of this pain for the last two years. Her vital signs on arrival were significant for hypertension, otherwise were within normal limits. She is afebrile and hemodynamically stable. Her physical examination was overall unremarkable. Differential diagnosis includes ACS, pneumothorax, musculoskeletal pain, pneumonia, or other electrolyte/metabolic derangement. Low concern for PE as she is not hypoxic, tachycardic, and has a Wells Score of 0. On review of external documentation, patient had an echocardiogram on 03/06/2024 that was essentially normal for the patient's age, making valvular disease or heart failure of lower likelihood. IV was established and laboratory studies were obtained. 12 Lead EKG: Sinus bradycardia at a rate of 58. Normal axis. No ST segment elevations. QRS, [place], and QTc interval within normal limits. Final impression: Sinus bradycardia without evidence of acute myocardial ischemia Chest x-ray independently reviewed/interpreted by myself demonstrated no acute cardiopulmonary process, unchanged compared to prior chest x-ray from 02/2024. Laboratory studies were unremarkable. No significant electrolyte or metabolic derangement. No evidence of acute kidney injury. No anemia, leukocytosis, or thrombocytopenia. No transaminitis or hyperbilirubinemia. Troponin nonelevated. On reevaluation, patient states she feels well and has no active chest pain. I do believe the patient is stable for discharge. They were instructed to follow up with her outpatient doctors as needed. Return precautions were given including any new or worsening symptoms. Patient understands and agrees to the plan. FINAL IMPRESSION: #Acute on chronic atypical chest pain DISPOSITION: Discharged home CONDITION: Good Medical Records Medical records reviewed: Yes I reviewed the patient's medical records Lab Data Lab results reviewed: Yes I reviewed the patient's lab results Labs: Lab Results 01/10/25 Range/Units 05:10 WBC 8.2 (4.0-11.0) 10^3/uL RBC 4.05 L (4.20-5.40) 10^6/uL Hgb 12.2 (12.0-16.0) g/dL Hct 36.9 (36.0-48.0) % MCV 91.1 (81.0-99.0) fL MCH 30.1 (26.7-34.0) pg MCHC 33.1 (29.9-35.2) g/dL RDW 13.4 (11.0-15.0) % Plt Count 272 (150-450) 10^3/uL MPV 9.5 (9.5-13.5) fL Neut % (Auto) 48.6 (43.0-75.0) % Lymph % (Auto) 38.3 (20.5-60.0) % [place] % (Auto) 8.7 (1.7-12.0) % Eos % (Auto) 3.8 (0.9-7.0) % Baso % (Auto) 0.4 (0.2-2.0) % Neut # (Auto) 4.0 (1.4-6.5) 10^3/uL Lymph # (Auto) 3.1 (1.2-3.8) 10^3/uL [place] # (Auto) 0.7 (0.3-0.8) 10^3/uL Eos # (Auto) 0.3 (0.0-0.7) 10^3/uL Baso # (Auto) 0.0 (0.0-0.1) 10^3/uL Abs Immat Gran (auto) 0.02 (0.00-0.03) 10^3/uL Imm/Tot Granulo (auto) 0.2 (0.0-0.5) % Sodium 140 (136-145) mmol/L Potassium 3.7 (3.5-5.1) mmol/L Chloride 107 (98-107) mmol/L Carbon Dioxide 28.2 (21.0-32.0) mmol/L Anion Gap 8.5 BUN 14.0 (7.0-18.0) mg/dL Creatinine 0.61 (0.55-1.02) mg/dL Est GFR ( Amer) >60 (>=60 mL/min/1.73m^2) Est GFR (Non-Af Amer) >60 (>=60 mL/min/1.73m^2) BUN/Creatinine Ratio 23.0 Glucose 100 (74-106) mg/dL Calcium 9.0 (8.5-10.1) mg/dL Total Bilirubin 0.8 (0.2-1.0) mg/dL AST 16 (15-37) U/L ALT 20 (14-59) U/L Alkaline Phosphatase 93 (46-116) U/L Troponin I High Sens 10.6 (4.0-51.3) pg/mL Total Protein 6.6 (6.4-8.2) g/dL Albumin 3.2 L (3.4-5.0) g/dL Globulin 3.4 g/dL Albumin/Globulin Ratio 0.9 Imaging Data Chest x-ray: Attestation: I personally reviewed and interpreted this imaging study as follows: ECG Data Attestation: I personally reviewed and interpreted this ECG as follows: Discharge Plan Discharge Chief Complaint: Chest Pain Clinical Impression: Chest pain Patient Disposition: Home, Self-Care Time of Disposition Decision: 06:11 Condition: Good Mode of Transportation: Private Vehicle Prescriptions / Home Meds: No Action aripiprazole 2 mg tablet 2 mg PO QDAY atorvastatin 20 mg tablet 20 mg PO QDAY gabapentin 300 mg capsule 300 mg PO Q8H memantine 5 mg tablet 5 mg PO QDAY oxybutynin chloride 5 mg tablet 5 mg PO Q12H venlafaxine 150 mg capsule,extended release 24hr 150 mg PO QDAY venlafaxine 75 mg capsule,extended release 24hr 75 mg PO QDAY cyanocobalamin (vitamin B-12) [Vitamin B-12] 1,000 mcg tablet 1,000 mcg PO DAILY Print Language: [place]an Instructions: Chest Pain (ED) Referrals: CJ RODRIGUEZ [Primary Care Provider, Family Practice] - 1 week
[2025-01-10 05:47] LABS: Hematocrit 36.9 % (36.0-48.0); Hemoglobin 12.2 g/dL (12.0-16.0); Immature Granulocytes Abs Auto 0.02 10^3/uL (0.00-0.03); Immature Granulocytes Pct Auto 0.2 % (0.0-0.5); Lymphocytes Absolute Auto 3.1 10^3/uL (1.2-3.8); Mean Corpuscular HGB Conc 33.1 g/dL (29.9-35.2); Mean Corpuscular Hemoglobin 30.1 pg (26.7-34.0); Mean Corpuscular Volume 91.1 fL (81.0-99.0); Platelet Count 272 10^3/uL (150-450); Red Blood Count 4.05 10^6/uL (4.20-5.40); White Blood Count 8.2 10^3/uL (4.0-11.0)
[2025-01-10 06:02] LABS: Alanine Aminotransferase 20 U/L (14-59); Albumin Globulin Ratio 0.9; Albumin Level 3.2 g/dL (3.4-5.0); Alkaline Phosphatase 93 U/L (46-116); Anion Gap 8.5; Aspartate Amino Transferase 16 U/L (15-37); Blood Urea Nitrogen 14.0 mg/dL (7.0-18.0); Calcium 9.0 mg/dL (8.5-10.1); Carbon Dioxide 28.2 mmol/L (21.0-32.0); Chloride 107 mmol/L (98-107); Estimated GFR (African America >60 (>=60 mL/min/1.73m^2); Estimated GFR (Non-African Ame >60 (>=60 mL/min/1.73m^2); Globulin 3.4 g/dL; Glucose 100 mg/dL (74-106); Potassium 3.7 mmol/L (3.5-5.1); Sodium 140 mmol/L (136-145); Total Protein 6.6 g/dL (6.4-8.2)
[2025-01-10 06:46] VITALS: BP 169/92; PULSE 54; O2SAT 94
== END 2025-01-10 06:49 | disposition home or self-care (01) ==
PROVIDERS: Emergency Provider Student in an Organized Health Care Education/Training Program; PCP Internal Medicine
DX: R07.9 Chest pain, unspecified (principal); G30.9 Alzheimer's disease, unspecified; F02.80 Dementia in other diseases classified elsewhere, unspecified severity, without behavioral disturbance, psychotic disturbance, mood disturbance, and anxiety; Z87.891 Personal history of nicotine dependence
CPT/HCPCS: 36415; 71045; 80053; 81001; 84484; 85025; 93005; 99285